=== PATIENT | male | born 1935 | race Caucasian/White ===

== ENCOUNTER 2018-12-15 14:35 | Inpatient (IN) | payer MEDICARE, OTHER ==
[2018-12-15] MEDS ORDERED: Sodium Chloride 0.9% 1,000 ML IV ONE (14:57)
[2018-12-15] MEDS ORDERED: Sodium Chloride 0.9% 10 ML Syringe FLUSH PRN (14:57)
--- NOTE | 2018-12-15 15:01 | EDM.PDOC ---
ED HPI GENERAL MEDICAL PROBLEM - General Chief Complaint: Respiratory Problem Stated Complaint: [facility] Time Seen by Provider: 12/15/18 14:44 Source of Information: Reports: EMS, Longterm Records, RN Notes Reviewed - History of Present Illness INITIAL COMMENTS - FREE TEXT/NARRATIVE: 83-year-old male has been brought here by [facility] for evaluation of renal status, fever, hypoxia. He is reported to have been in his usual state of health this past morning and then sometime around noon today developed altered mental status. He was noted to be in respiratory distress and also found to have low-grade fever. Upon ambulance arrival he was completely unresponsive with tachypnea, tachycardia and had previously been hypoxic. Due to continued respiratory distress in route and relative hypoxia they did start CPAP shortly before arrival to our ED. On arrival to ED patient is completely unresponsive, not able to verbalize or answer any questions. He is known to have history of dementia. At time of initial exam no family members present. - Related Data Allergies Allergy/AdvReac Type Severity Reaction Status Date / Time No Known Allergies Allergy Verified 12/15/18 14:57 Home Meds: Home Meds Aspirin 81 mg PO DAILY 01/11/18 [History] Cholecalciferol (Vitamin D3) [Vitamin D3] 5,000 unit PO DAILY 01/11/18 [History] Citalopram Hydrobromide [Celexa] 20 mg PO DAILY 01/11/18 [History] Donepezil HCl 10 mg PO DAILY 01/11/18 [History] LORazepam 0.5 mg PO BID PRN 01/11/18 [History] Lisinopril 10 mg PO DAILY 01/11/18 [History] Memantine HCl 10 mg PO DAILY 01/11/18 [History] Metoprolol Succinate 50 mg PO DAILY 01/11/18 [History] Niacin 500 mg PO DAILY 01/11/18 [History] Vit A/Vit C/Vit E/Zinc/Copper [Icaps Areds Formula] 1 cap PO BID 01/11/18 [ History] risperiDONE 0.25 mg PO DAILY 01/11/18 [History] Acetaminophen 325 - 650 mg PO Q6HR PRN 12/15/18 [History] Acetaminophen [Tylenol Extra Strength] 500 mg PO TID 12/15/18 [History] Carboxymethyl/Glycerin/Poly80 [Refresh Optive Advanced Drops] 10 ml OP BID 12/15 [History] Finasteride [Proscar] 5 mg PO DAILY 12/15/18 [History] Magnesium Hydroxide [Milk of Magnesia] 30 ml PO DAILY PRN 12/15/18 [History] Multivitamin [Poly-Vitamin] 1 each PO DAILY 12/15/18 [History] Sennosides [Senna] 8.6 mg PO DAILY 12/15/18 [History] Tamsulosin [Flomax] 0.4 mg PO DAILY 12/15/18 [History] busPIRone [Buspar] 10 mg PO BID 12/15/18 [History] fentaNYL [Fentanyl] 12 mcg TRDERM Q3D 12/15/18 [History] risperiDONE [Risperidone] 0.5 mg PO DAILY 12/15/18 [History] Past Medical History HEENT History: Reports: Macular Degeneration, Other (See Below) Other HEENT History: keratoconjunctivits, bilateral optic atrophy, diplobia Cardiovascular History: Reports: Afib, High Cholesterol, Hypertension Respiratory History: Reports: None Gastrointestinal History: Reports: None Genitourinary History: Reports: BPH [employer] History: Reports: None Musculoskeletal History: Reports: Other (See Below) Other Musculoskeletal History: left olecranon Neurological History: Reports: Other (See Below) Other Neuro History: cerebrovascular disease, TBI Psychiatric History: Reports: Anxiety, Dementia, Depression, Schizophrenia, Other (See Below) Other Psychiatric History: restlessness, agitiation Endocrine/Metabolic History: Reports: None Hematologic History: Reports: None Immunologic History: Reports: None Oncologic (Cancer) History: Reports: None Dermatologic History: Reports: None - Past Surgical History Head Surgeries/Procedures: Reports: None HEENT Surgical History: Reports: None Cardiovascular Surgical History: Reports: None Respiratory Surgical History: Reports: None GI Surgical History: Reports: None Female Surgical History: Reports: None Male Surgical History: Reports: None Endocrine Surgical History: Reports: None Neurological Surgical History: Reports: None Musculoskeletal Surgical History: Reports: Shoulder Surgery Oncologic Surgical History: Reports: None Dermatological Surgical History: Reports: None Social & Family History - Caffeine Use Caffeine Use: Reports: Coffee ED ROS GENERAL - Review of Systems Review Of Systems: Unable To Obtain ED EXAM, GENERAL - Physical Exam Exam: See Below General Appearance: Other (Completely unresponsive verbally and to gentle sternal rub) Eye Exam: Bilateral Eye: PERRL (Pupils are equal, relatively constricted) Head: Atraumatic. No: Facial Swelling Neck: Supple Respiratory/Chest: Respiratory Distress (Moderate tachypnea), Rhonchi (Mild bilateral) Cardiovascular: Tachycardia GI/Abdominal: Soft, Non-Tender Extremities: Normal Inspection. No: Pedal Edema, Leg Pain, Redness Neurological: Other Skin Exam: Warm, Dry, Normal Color EKG INTERPRETATION EKG Date: 12/15/18 Rhythm: A-Fib Rate (Beats/Min): 120 P-Wave: Absent ST-T: Normal Course - Vital Signs Last Recorded V/S: Last Vital Signs Temp 97.5 F 12/16/18 07:38 Pulse 86 12/16/18 07:38 Resp 16 12/16/18 07:38 BP 127/80 12/16/18 07:38 Pulse Ox 94 L 12/16/18 08:36 - Orders/Labs/Meds Orders: Active Orders 24 hr Category Date Time Status CULTURE BLOOD [BC] Stat Lab 12/15/18 15:10 Received CULTURE BLOOD [BC] Stat Lab 12/15/18 15:25 Received CULTURE URINE [RM] Stat Lab 12/15/18 15:55 Results Levofloxacin/Dextrose 5%-Water [Levaquin in D5W 750 MG/ Med 12/15/18 16:00 Active 150 ML] 750 mg Premix Bag 1 bag IV Q24H Piperacillin/Tazobactam [Piperacil-Tazobact] 4.5 gm Med 12/16/18 00:00 Active Sodium Chloride 0.9% [Normal Saline] 100 ml IV Q8H Sodium Chloride 0.9% [Saline Flush] Med 12/15/18 14:57 Active 10 ml FLUSH ASDIRECTED PRN Blood Culture x2 Reflex Set [OM.PC] Stat Oth 12/15/18 14:57 Ordered Saline Lock Insert [OM.PC] Stat Oth 12/15/18 14:57 Ordered Severe Sepsis Onset Time [OM.PC] Stat Oth 12/15/18 14:57 Ordered Medication Orders Enoxaparin Sodium (Lovenox) 40 mg SUBCUT DAILY [facility] Last Admin: 12/16/18 08:57 Dose: 40 mg Levofloxacin/Dextrose 750 mg/ (Premix) 150 mls @ 100 mls/hr IV Q24H [facility] Last Admin: 12/15/18 16:24 Dose: 100 mls/hr Piperacillin Sod/Tazobactam (Sod 4.5 gm/ Sodium Chloride) 100 mls @ 25 mls/hr IV Q8H [facility] Last Admin: 12/16/18 08:55 Dose: 25 mls/hr Infusion: 12/16/18 03:33 Dose: 25 mls/hr Admin: 12/15/18 23:33 Dose: 25 mls/hr Dextrose/Water (Dextrose 5% In Water) 1,000 mls @ 100 mls/hr IV ASDIRECTED ISATU Last Admin: 12/16/18 06:56 Dose: 100 mls/hr Infusion: 12/16/18 06:56 Dose: 100 mls/hr Admin: 12/15/18 21:12 Dose: 100 mls/hr Sodium Chloride (Saline Flush) 10 ml FLUSH ASDIRECTED PRN PRN Reason: Keep Vein Open Last Admin: 12/15/18 15:13 Dose: 10 ml Labs: Laboratory Tests 12/15/18 12/15/18 12/15/18 Range/Units 14:45 14:45 14:45 WBC 16.61 H (4.23-9.07) K/mm3 RBC 4.70 (4.63-6.08) M/mm3 Hgb 15.3 (13.7-17.5) gm/dl Hct 48.4 (40.1-51.0) % MCV 103.0 H (79.0-92.2) fl MCH 32.6 H (25.7-32.2) pg MCHC 31.6 L (32.2-35.5) g/dl RDW Std Deviation 55.7 H (35.1-43.9) fL Plt Count 220 (163-337) K/mm3 MPV 11.5 (9.4-12.3) fl Neutrophils % (Manual) 82 H (40-60) % Band Neutrophils % 4 (0-10) % Lymphocytes % (Manual) 6 L (20-40) % Atypical Lymphs % 1 % Monocytes % (Manual) 6 (2-10) % Eosinophils % (Manual) 1 (0.8-7.0) % Basophils % (Manual) 0 L (0.2-1.2) Platelet Estimate Adequate Macrocytosis 1+ slight RBC Morph Comment Not Reportable PT 11.6 (9.7-12.0) SECONDS INR 1.07 Puncture Site ABG pH (7.35-7.45) ABG pCO2 (35.0-45.0) mmHg ABG pO2 (80.0-100.0) mmHg ABG HCO3 (22.0-26.0) meq/L ABG O2 Saturation (96.0-97.0) % ABG Base Excess (-2-2.0) A-a Gradient mmHg O2 Delivery Device Oxygen Flow Rate FiO2 (21.00-100.00) % Sodium 167 H* (136-145) mEq/L Potassium 3.9 (3.5-5.1) mEq/L Chloride 127 H (98-107) mEq/L Carbon Dioxide 30 (21-32) mEq/L Anion Gap 13.9 (5-15) BUN 48 H (7-18) mg/dL Creatinine 1.3 (0.7-1.3) mg/dL Est Cr Clr Drug Dosing TNP Estimated GFR (MDRD) 53 (>60) mL/min BUN/Creatinine Ratio 36.9 H (14-18) Glucose 178 H (83-115) mg/dL Serum Osmolality (280-300) mosm/kg Lactic Acid (0.4-2.0) mmol/L Calcium 10.1 (8.5-10.1) mg/dL Total Bilirubin 0.9 (0.2-1.0) mg/dL AST 28 (15-37) U/L ALT 87 H (16-63) U/L Alkaline Phosphatase 83 (46-116) U/L C-Reactive Protein 7.3 H* (<1.0) mg/dL Total Protein 7.2 (6.4-8.2) g/dl Albumin 3.1 L (3.4-5.0) g/dl Globulin 4.1 gm/dL Albumin/Globulin Ratio 0.8 L (1-2) Urine Color (Yellow) Urine Appearance (Clear) Urine pH (5.0-8.0) Ur Specific Cameron (1.005-1.030) Urine Protein (Negative) Urine Glucose (UA) (Negative) Urine Ketones (Negative) Urine Occult Blood (Negative) Urine Nitrite (Negative) Urine Bilirubin (Negative) Urine Urobilinogen (0.2-1.0) Ur Leukocyte Esterase (Negative) Urine RBC (0-5) /hpf Urine WBC (0-5) /hpf Ur Squamous Epith Cells (0-5) /hpf Urine Bacteria (FEW) /hpf Hyaline Casts (0-5) /lpf Urine Mucus (FEW) /hpf Urine Osmolality (400-1100) mosm/kg Ur Random Sodium (40-220) mEq/L Mycoplasma pneumon IgM (NEGATIVE) 12/15/18 12/15/18 12/15/18 Range/Units 14:45 14:45 14:45 WBC (4.23-9.07) K/mm3 RBC (4.63-6.08) M/mm3 Hgb (13.7-17.5) gm/dl Hct (40.1-51.0) % MCV (79.0-92.2) fl MCH (25.7-32.2) pg MCHC (32.2-35.5) g/dl RDW Std Deviation (35.1-43.9) fL Plt Count (163-337) K/mm3 MPV (9.4-12.3) fl Neutrophils % (Manual) (40-60) % Band Neutrophils % (0-10) % Lymphocytes % (Manual) (20-40) % Atypical Lymphs % % Monocytes % (Manual) (2-10) % Eosinophils % (Manual) (0.8-7.0) % Basophils % (Manual) (0.2-1.2) Platelet Estimate Macrocytosis RBC Morph Comment PT (9.7-12.0) SECONDS INR Puncture Site ABG pH (7.35-7.45) ABG pCO2 (35.0-45.0) mmHg ABG pO2 (80.0-100.0) mmHg ABG HCO3 (22.0-26.0) meq/L ABG O2 Saturation (96.0-97.0) % ABG Base Excess (-2-2.0) A-a Gradient mmHg O2 Delivery Device Oxygen Flow Rate FiO2 (21.00-100.00) % Sodium (136-145) mEq/L Potassium (3.5-5.1) mEq/L Chloride (98-107) mEq/L Carbon Dioxide (21-32) mEq/L Anion Gap (5-15) BUN (7-18) mg/dL Creatinine (0.7-1.3) mg/dL Est Cr Clr Drug Dosing Estimated GFR (MDRD) (>60) mL/min BUN/Creatinine Ratio (14-18) Glucose (83-115) mg/dL Serum Osmolality 366 H (280-300) mosm/kg Lactic Acid 2.7 H (0.4-2.0) mmol/L Calcium (8.5-10.1) mg/dL Total Bilirubin (0.2-1.0) mg/dL AST (15-37) U/L ALT (16-63) U/L Alkaline Phosphatase (46-116) U/L C-Reactive Protein (<1.0) mg/dL Total Protein (6.4-8.2) g/dl Albumin (3.4-5.0) g/dl Globulin gm/dL Albumin/Globulin Ratio (1-2) Urine Color (Yellow) Urine Appearance (Clear) Urine pH (5.0-8.0) Ur Specific Cameron (1.005-1.030) Urine Protein (Negative) Urine Glucose (UA) (Negative) Urine Ketones (Negative) Urine Occult Blood (Negative) Urine Nitrite (Negative) Urine Bilirubin (Negative) Urine Urobilinogen (0.2-1.0) Ur Leukocyte Esterase (Negative) Urine RBC (0-5) /hpf Urine WBC (0-5) /hpf Ur Squamous Epith Cells (0-5) /hpf Urine Bacteria (FEW) /hpf Hyaline Casts (0-5) /lpf Urine Mucus (FEW) /hpf Urine Osmolality (400-1100) mosm/kg Ur Random Sodium (40-220) mEq/L Mycoplasma pneumon IgM Negative (NEGATIVE) 12/15/18 12/15/18 12/15/18 Range/Units 15:37 15:55 15:55 WBC (4.23-9.07) K/mm3 RBC (4.63-6.08) M/mm3 Hgb (13.7-17.5) gm/dl Hct (40.1-51.0) % MCV (79.0-92.2) fl MCH (25.7-32.2) pg MCHC (32.2-35.5) g/dl RDW Std Deviation (35.1-43.9) fL Plt Count (163-337) K/mm3 MPV (9.4-12.3) fl Neutrophils % (Manual) (40-60) % Band Neutrophils % (0-10) % Lymphocytes % (Manual) (20-40) % Atypical Lymphs % % Monocytes % (Manual) (2-10) % Eosinophils % (Manual) (0.8-7.0) % Basophils % (Manual) (0.2-1.2) Platelet Estimate Macrocytosis RBC Morph Comment PT (9.7-12.0) SECONDS INR Puncture Site Lt radial ABG pH 7.40 (7.35-7.45) ABG pCO2 41.7 (35.0-45.0) mmHg ABG pO2 76.0 L (80.0-100.0) mmHg ABG HCO3 25.4 (22.0-26.0) meq/L ABG O2 Saturation 95.8 L (96.0-97.0) % ABG Base Excess 1.0 (-2-2.0) A-a Gradient 244 mmHg O2 Delivery Device Cpap Oxygen Flow Rate 8.0 FiO2 52.00 (21.00-100.00) % Sodium (136-145) mEq/L Potassium (3.5-5.1) mEq/L Chloride (98-107) mEq/L Carbon Dioxide (21-32) mEq/L Anion Gap (5-15) BUN (7-18) mg/dL Creatinine (0.7-1.3) mg/dL Est Cr Clr Drug Dosing Estimated GFR (MDRD) (>60) mL/min BUN/Creatinine Ratio (14-18) Glucose (83-115) mg/dL Serum Osmolality (280-300) mosm/kg Lactic Acid (0.4-2.0) mmol/L Calcium (8.5-10.1) mg/dL Total Bilirubin (0.2-1.0) mg/dL AST (15-37) U/L ALT (16-63) U/L Alkaline Phosphatase (46-116) U/L C-Reactive Protein (<1.0) mg/dL Total Protein (6.4-8.2) g/dl Albumin (3.4-5.0) g/dl Globulin gm/dL Albumin/Globulin Ratio (1-2) Urine Color Yellow (Yellow) Urine Appearance Clear (Clear) Urine pH 5.5 (5.0-8.0) Ur Specific Cameron 1.025 (1.005-1.030) Urine Protein 1+ H (Negative) Urine Glucose (UA) Trace H (Negative) Urine Ketones Negative (Negative) Urine Occult Blood 3+ H (Negative) Urine Nitrite Negative (Negative) Urine Bilirubin Negative (Negative) Urine Urobilinogen 1.0 (0.2-1.0) Ur Leukocyte Esterase Negative (Negative) Urine RBC 20-30 H (0-5) /hpf Urine WBC 5-10 H (0-5) /hpf Ur Squamous Epith Cells Not seen (0-5) /hpf Urine Bacteria Few (FEW) /hpf Hyaline Casts 10-20 H (0-5) /lpf Urine Mucus Few (FEW) /hpf Urine Osmolality 930 (400-1100) mosm/kg Ur Random Sodium 13 L (40-220) mEq/L Mycoplasma pneumon IgM (NEGATIVE) Meds: Medications Generic Name Dose Route Start Last Admin Trade Name Freq PRN Reason Stop Dose Admin Enoxaparin Sodium 40 mg 12/16/18 09:00 12/16/18 08:57 Lovenox SUBCUT 40 mg DAILY [facility] Administration Levofloxacin/Dextrose 750 mg/ 150 mls @ 100 mls/hr 12/15/18 16:00 12/15/18 16 :24 Premix IV 100 mls/hr Q24H [facility] Administration Piperacillin Sod/Tazobactam 100 mls @ 25 mls/hr 12/16/18 00:00 12/16/18 08:55 Sod 4.5 gm/ Sodium Chloride IV 25 mls/hr Q8H [facility] Administration Dextrose/Water 1,000 mls @ 100 mls/hr 12/15/18 18:45 12/16/18 06:56 Dextrose 5% In Water IV 100 mls/hr ASDIRECTED [facility]U Administration Sodium Chloride 10 ml 12/15/18 14:57 12/15/18 15:13 Saline Flush FLUSH 10 ml ASDIRECTED PRN Administration Keep Vein Open Discontinued Medications Generic Name Dose Route Start Last Admin Trade Name Freq PRN Reason Stop Dose Admin Sodium Chloride 1,000 mls @ 999 mls/hr 12/15/18 14:57 12/15/18 15:13 Normal Saline IV 12/15/18 15:57 999 mls/hr BOLUS ONE Administration Piperacillin Sod/Tazobactam 100 mls @ 25 mls/hr 12/15/18 16:00 11/03/19 22:32 Sod 4.5 gm/ Sodium Chloride IV Not Given Q8H [facility] Lactated Ringer's 1,000 mls @ 999 mls/hr 12/15/18 16:06 12/15/18 16:14 Ringers, Lactated IV 12/15/18 17:06 999 mls/hr .BOLUS ONE Administration Piperacillin Sod/Tazobactam 100 mls @ 200 mls/hr 12/15/18 16:15 12/15/18 16: 20 Sod 4.5 gm/ Sodium Chloride IV 12/15/18 16:44 200 mls/hr ONETIME ONE Administration Naloxone HCl 1 mg 12/15/18 18:23 12/15/18 18:52 Narcan IVPUSH 12/15/18 18:24 1 mg ONETIME ONE Administration - Re-Assessments/Exams Free Text/Narrative Re-Assessment/Exam: 12/15/18 15:06. Appropriate labs and fluids have been ordered using sepsis bundle. Blood cultures 2 obtained. 1 L NS IV fluid will be given for starters. O2 sats were 95% with continued CPAP started by EMS en route. That will be continued for now, have ordered ABG's. 12/15/18 15:30. ABG's are OK, p02 76, ph 7.4. Have switched the C PAP over to BiPap. Chest x-ray is not very remarkable at all, very mild infiltrate right base. There is no evidence for failure. Working diagnosis is aspiration pneumonia, possible sepsis, hypernatremia sodium of 167 and corresponding dehydration. Currently getting 2nd liter of fluid, LR. Have ordered Zosyn 4.5 g IV and then also Levaquin 750 mg IV with this being a correction acquired infection/pneumonia 12/15/18. 17:30. BP has improved to 124/76, pulse down to 104 from 135 on arrival. Good radial pulses, cap refill. Still unresponsive. Have contacted to [place] for hospital admission. Departure - Departure Time of Disposition: 17:37 Disposition: Admitted As Inpatient 67 Condition: Serious Clinical Impression: Hypernatremia, Hypoxia Altered mental status Qualifiers: Altered mental status type: unspecified Qualified Code(s): R41.82 - Altered mental status, unspecified Fever Qualifiers: Fever type: unspecified Qualified Code(s): R50.9 - Fever, unspecified Leukocytosis Qualifiers: Leukocytosis type: other Qualified Code(s): D72.828 - Other elevated white blood cell count - Discharge Information ED Communication - Discussed Case With (1) Discussed Case With (1): Admitting Provider (Dr Guerrero, decision to admit at about 17:30.) - My Orders Last 24 Hours: My Active Orders 12/15/18 14:57 Sodium Chloride 0.9% [Saline Flush] 10 ml FLUSH ASDIRECTED PRN Blood Culture x2 Reflex Set [OM.PC] Stat Saline Lock Insert [OM.PC] Stat Severe Sepsis Onset Time [OM.PC] Stat 12/15/18 15:10 CULTURE BLOOD [BC] Stat 12/15/18 15:25 CULTURE BLOOD [BC] Stat 12/15/18 15:55 CULTURE URINE [RM] Stat 12/15/18 16:00 Levofloxacin/Dextrose 5%-Water [Levaquin in D5W 750 MG/150 ML] 750 mg Premix Bag 1 bag IV Q24H 12/16/18 00:00 Piperacillin/Tazobactam [Piperacil-Tazobact] 4.5 gm Sodium Chloride 0.9% [ Normal Saline] 100 ml IV Q8H - Assessment/Plan Last 24 Hours: My Active Orders 12/15/18 14:57 Sodium Chloride 0.9% [Saline Flush] 10 ml FLUSH ASDIRECTED PRN Blood Culture x2 Reflex Set [OM.PC] Stat Saline Lock Insert [OM.PC] Stat Severe Sepsis Onset Time [OM.PC] Stat 12/15/18 15:10 CULTURE BLOOD [BC] Stat 12/15/18 15:25 CULTURE BLOOD [BC] Stat 12/15/18 15:55 CULTURE URINE [RM] Stat 12/15/18 16:00 Levofloxacin/Dextrose 5%-Water [Levaquin in D5W 750 MG/150 ML] 750 mg Premix Bag 1 bag IV Q24H 12/16/18 00:00 Piperacillin/Tazobactam [Piperacil-Tazobact] 4.5 gm Sodium Chloride 0.9% [ Normal Saline] 100 ml IV Q8H
[2018-12-15] MEDS ORDERED: Piperacillin/Tazobactam 4.5 GM in Sodium Chloride 0.9% 100 ML IV SCH (16:00)
[2018-12-15] MEDS ORDERED: Lactated Ringers 1,000 ML IV ONE (16:06)
[2018-12-15] MEDS ORDERED: Piperacillin/Tazobactam 4.5 GM in Sodium Chloride 0.9% 100 ML IV ONE (16:15)
[2018-12-15] MEDS: Levofloxacin/Dextrose 5%-Water 750 MG in Premix Bag 1 BAG IV SCH (16:24)
[2018-12-15] MEDS ORDERED: Naloxone 2 MG/2 ML Syringe IVPUSH ONE (18:23)
--- NOTE | 2018-12-15 18:34 | PCM.HP.2 ---
H&P History of Present Illness - General Date of Service: 12/15/18 - History of Present Illness Initial Comments - Free Text/Narative: INFORMATION IS VERY LIMITED DUE TO PATIENT BEING ALTERED AND LIVES IN SENIOR CARE. OBTAINED FROM ED PHYSICIAN, NURSE AND Patient is a retirement resident who was found to be diaphoretic with an altered mental status around noon at retirement ([facility]) ivtal signs were obtained at that time and patient was found to be febrile, tachycardic, tachypneic and BP within normal limits. He was also found to be hypoxemic, placed on NRB 10L which brought his o2 sat up to 94% As per patient's he has been having decreased oral intake in the past 3-4 weeks, she sees patient every day for lunch. She states approximately 4 weeks ago patient just stopped eating and after that patient required to be fed, mainly ensure and magic cup, sometimes pudding and jello. She also states that patient coughs when he eats. She was called by retirement who stated that when patient was taken back to room after lunch he was found to be sweating profusely with a fever for which they called the ambulance and brought him here. - Related Data Allergies/Adverse Reactions: Allergies Allergy/AdvReac Type Severity Reaction Status Date / Time No Known Allergies Allergy Verified 12/15/18 14:57 Home Medications: Home Meds Aspirin 81 mg PO DAILY 01/11/18 [History] Cholecalciferol (Vitamin D3) [Vitamin D3] 5,000 unit PO DAILY 01/11/18 [History] Citalopram Hydrobromide [Celexa] 20 mg PO DAILY 01/11/18 [History] Donepezil HCl 10 mg PO DAILY 01/11/18 [History] LORazepam 0.5 mg PO BID PRN 01/11/18 [History] Lisinopril 10 mg PO DAILY 01/11/18 [History] Memantine HCl 10 mg PO DAILY 01/11/18 [History] Metoprolol Succinate 50 mg PO DAILY 01/11/18 [History] Niacin 500 mg PO DAILY 01/11/18 [History] Vit A/Vit C/Vit E/Zinc/Copper [Icaps Areds Formula] 1 cap PO BID 01/11/18 [ History] risperiDONE 0.25 mg PO DAILY 01/11/18 [History] Acetaminophen 325 - 650 mg PO Q6HR PRN 12/15/18 [History] Acetaminophen [Tylenol Extra Strength] 500 mg PO TID 12/15/18 [History] Carboxymethyl/Glycerin/Poly80 [Refresh Optive Advanced Drops] 10 ml OP BID 12/15 [History] Finasteride [Proscar] 5 mg PO DAILY 12/15/18 [History] Magnesium Hydroxide [Milk of Magnesia] 30 ml PO DAILY PRN 12/15/18 [History] Multivitamin [Poly-Vitamin] 1 each PO DAILY 12/15/18 [History] Sennosides [Senna] 8.6 mg PO DAILY 12/15/18 [History] Tamsulosin [Flomax] 0.4 mg PO DAILY 12/15/18 [History] busPIRone [Buspar] 10 mg PO BID 12/15/18 [History] fentaNYL [Fentanyl] 12 mcg TRDERM Q3D 12/15/18 [History] risperiDONE [Risperidone] 0.5 mg PO DAILY 12/15/18 [History] Past Medical History HEENT History: Reports: Macular Degeneration, Other (See Below) Other HEENT History: keratoconjunctivits, bilateral optic atrophy, diplobia Cardiovascular History: Reports: Afib, High Cholesterol, Hypertension Respiratory History: Reports: None Gastrointestinal History: Reports: None Genitourinary History: Reports: BPH 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 Musculoskeletal History: Reports: Other (See Below) Other Musculoskeletal History: left olecranon Neurological History: Reports: Other (See Below) Other Neuro History: cerebrovascular disease, TBI Psychiatric History: Reports: Anxiety, Dementia, Depression, Schizophrenia, Other (See Below) Other Psychiatric History: restlessness, agitiation Endocrine/Metabolic History: Reports: None Hematologic History: Reports: None Immunologic History: Reports: None Oncologic (Cancer) History: Reports: None Dermatologic History: Reports: None - Infectious Disease History Infectious Disease History: Reports: None - Past Surgical History Head Surgeries/Procedures: Reports: None HEENT Surgical History: Reports: None Cardiovascular Surgical History: Reports: None Respiratory Surgical History: Reports: None GI Surgical History: Reports: None Female Surgical History: Reports: None Male Surgical History: Reports: None Endocrine Surgical History: Reports: None Neurological Surgical History: Reports: None Musculoskeletal Surgical History: Reports: Shoulder Surgery Oncologic Surgical History: Reports: None Dermatological Surgical History: Reports: None Social & Family History - Tobacco Use Smoking Status *Q: Unknown Ever Smoked - Caffeine Use Caffeine Use: Reports: Coffee Other Caffeine Use: Unknown due to pt being unresponsive. H&P Review of Systems - Review of Systems: Review Of Systems: Unable To Obtain Exam - Exam Exam: See Below - Vital Signs Vital Signs: Last Vital Signs Temp 38.1 C 12/15/18 14:43 Pulse 135 H 12/15/18 14:43 Resp 24 H 12/15/18 14:43 BP 117/80 12/15/18 14:43 Pulse Ox 95 12/15/18 14:43 Weight: 62.686 kg - Exam Quality Assessment: Supplemental Oxygen, Other (Normocephalic and atraumatic with bitemporal wasting) General: Lethargic HEENT: Conjunctiva Clear (oral mucosa is dry, unable to evaluate for lesions due to patient being on biPAP) Neck: Trachea Midline Lungs: Clear to Auscultation, Normal Respiratory Effort, Decreased Breath Sounds , Crackles (very occasional). No: Rales, Rhonchi, Rub, Stridor, Wheezing Cardiovascular: Tachycardia GI/Abdominal Exam: Normal Bowel Sounds, Soft Back Exam: Normal Inspection Extremities: Normal Inspection, No Pedal Edema, Slow Capillary Refill - Patient Data Lab Results Last 24 hrs: Laboratory Results - last 24 hr 12/15/18 12/15/18 12/15/18 Range/Units 14:45 14:45 14:45 WBC 16.61 H (4.23-9.07) K/mm3 RBC 4.70 (4.63-6.08) M/mm3 Hgb 15.3 (13.7-17.5) gm/dl Hct 48.4 (40.1-51.0) % MCV 103.0 H (79.0-92.2) fl MCH 32.6 H (25.7-32.2) pg MCHC 31.6 L (32.2-35.5) g/dl RDW Std Deviation 55.7 H (35.1-43.9) fL Plt Count 220 (163-337) K/mm3 MPV 11.5 (9.4-12.3) fl Neutrophils % (Manual) 82 H (40-60) % Band Neutrophils % 4 (0-10) % Lymphocytes % (Manual) 6 L (20-40) % Atypical Lymphs % 1 % Monocytes % (Manual) 6 (2-10) % Eosinophils % (Manual) 1 (0.8-7.0) % Basophils % (Manual) 0 L (0.2-1.2) Platelet Estimate Adequate Macrocytosis 1+ slight RBC Morph Comment Not Reportable PT 11.6 (9.7-12.0) SECONDS INR 1.07 Puncture Site ABG pH (7.35-7.45) ABG pCO2 (35.0-45.0) mmHg ABG pO2 (80.0-100.0) mmHg ABG HCO3 (22.0-26.0) meq/L ABG O2 Saturation (96.0-97.0) % ABG Base Excess (-2-2.0) A-a Gradient mmHg O2 Delivery Device Oxygen Flow Rate FiO2 (21.00-100.00) % Sodium 167 H* (136-145) mEq/L Potassium 3.9 (3.5-5.1) mEq/L Chloride 127 H (98-107) mEq/L Carbon Dioxide 30 (21-32) mEq/L Anion Gap 13.9 (5-15) BUN 48 H (7-18) mg/dL Creatinine 1.3 (0.7-1.3) mg/dL Est Cr Clr Drug Dosing TNP Estimated GFR (MDRD) 53 (>60) mL/min BUN/Creatinine Ratio 36.9 H (14-18) Glucose 178 H (83-115) mg/dL Lactic Acid (0.4-2.0) mmol/L Calcium 10.1 (8.5-10.1) mg/dL Total Bilirubin 0.9 (0.2-1.0) mg/dL AST 28 (15-37) U/L ALT 87 H (16-63) U/L Alkaline Phosphatase 83 (46-116) U/L C-Reactive Protein 7.3 H* (<1.0) mg/dL Total Protein 7.2 (6.4-8.2) g/dl Albumin 3.1 L (3.4-5.0) g/dl Globulin 4.1 gm/dL Albumin/Globulin Ratio 0.8 L (1-2) Urine Color (Yellow) Urine Appearance (Clear) Urine pH (5.0-8.0) Ur Specific [place] (1.005-1.030) Urine Protein (Negative) Urine Glucose (UA) (Negative) Urine Ketones (Negative) Urine Occult Blood (Negative) Urine Nitrite (Negative) Urine Bilirubin (Negative) Urine Urobilinogen (0.2-1.0) Ur Leukocyte Esterase (Negative) Urine RBC (0-5) /hpf Urine WBC (0-5) /hpf Ur Squamous Epith Cells (0-5) /hpf Urine Bacteria (FEW) /hpf Hyaline Casts (0-5) /lpf Urine Mucus (FEW) /hpf Mycoplasma pneumon IgM (NEGATIVE) 12/15/18 12/15/18 12/15/18 Range/Units 14:45 14:45 15:37 WBC (4.23-9.07) K/mm3 RBC (4.63-6.08) M/mm3 Hgb (13.7-17.5) gm/dl Hct (40.1-51.0) % MCV (79.0-92.2) fl MCH (25.7-32.2) pg MCHC (32.2-35.5) g/dl RDW Std Deviation (35.1-43.9) fL Plt Count (163-337) K/mm3 MPV (9.4-12.3) fl Neutrophils % (Manual) (40-60) % Band Neutrophils % (0-10) % Lymphocytes % (Manual) (20-40) % Atypical Lymphs % % Monocytes % (Manual) (2-10) % Eosinophils % (Manual) (0.8-7.0) % Basophils % (Manual) (0.2-1.2) Platelet Estimate Macrocytosis RBC Morph Comment PT (9.7-12.0) SECONDS INR Puncture Site Lt radial ABG pH 7.40 (7.35-7.45) ABG pCO2 41.7 (35.0-45.0) mmHg ABG pO2 76.0 L (80.0-100.0) mmHg ABG HCO3 25.4 (22.0-26.0) meq/L ABG O2 Saturation 95.8 L (96.0-97.0) % ABG Base Excess 1.0 (-2-2.0) A-a Gradient 244 mmHg O2 Delivery Device Cpap Oxygen Flow Rate 8.0 FiO2 52.00 (21.00-100.00) % Sodium (136-145) mEq/L Potassium (3.5-5.1) mEq/L Chloride (98-107) mEq/L Carbon Dioxide (21-32) mEq/L Anion Gap (5-15) BUN (7-18) mg/dL Creatinine (0.7-1.3) mg/dL Est Cr Clr Drug Dosing Estimated GFR (MDRD) (>60) mL/min BUN/Creatinine Ratio (14-18) Glucose (83-115) mg/dL Lactic Acid 2.7 H (0.4-2.0) mmol/L Calcium (8.5-10.1) mg/dL Total Bilirubin (0.2-1.0) mg/dL AST (15-37) U/L ALT (16-63) U/L Alkaline Phosphatase (46-116) U/L C-Reactive Protein (<1.0) mg/dL Total Protein (6.4-8.2) g/dl Albumin (3.4-5.0) g/dl Globulin gm/dL Albumin/Globulin Ratio (1-2) Urine Color (Yellow) Urine Appearance (Clear) Urine pH (5.0-8.0) Ur Specific [place] (1.005-1.030) Urine Protein (Negative) Urine Glucose (UA) (Negative) Urine Ketones (Negative) Urine Occult Blood (Negative) Urine Nitrite (Negative) Urine Bilirubin (Negative) Urine Urobilinogen (0.2-1.0) Ur Leukocyte Esterase (Negative) Urine RBC (0-5) /hpf Urine WBC (0-5) /hpf Ur Squamous Epith Cells (0-5) /hpf Urine Bacteria (FEW) /hpf Hyaline Casts (0-5) /lpf Urine Mucus (FEW) /hpf Mycoplasma pneumon IgM Negative (NEGATIVE) 12/15/18 Range/Units 15:55 WBC (4.23-9.07) K/mm3 RBC (4.63-6.08) M/mm3 Hgb (13.7-17.5) gm/dl Hct (40.1-51.0) % MCV (79.0-92.2) fl MCH (25.7-32.2) pg MCHC (32.2-35.5) g/dl RDW Std Deviation (35.1-43.9) fL Plt Count (163-337) K/mm3 MPV (9.4-12.3) fl Neutrophils % (Manual) (40-60) % Band Neutrophils % (0-10) % Lymphocytes % (Manual) (20-40) % Atypical Lymphs % % Monocytes % (Manual) (2-10) % Eosinophils % (Manual) (0.8-7.0) % Basophils % (Manual) (0.2-1.2) Platelet Estimate Macrocytosis RBC Morph Comment PT (9.7-12.0) SECONDS INR Puncture Site ABG pH (7.35-7.45) ABG pCO2 (35.0-45.0) mmHg ABG pO2 (80.0-100.0) mmHg ABG HCO3 (22.0-26.0) meq/L ABG O2 Saturation (96.0-97.0) % ABG Base Excess (-2-2.0) A-a Gradient mmHg O2 Delivery Device Oxygen Flow Rate FiO2 (21.00-100.00) % Sodium (136-145) mEq/L Potassium (3.5-5.1) mEq/L Chloride (98-107) mEq/L Carbon Dioxide (21-32) mEq/L Anion Gap (5-15) BUN (7-18) mg/dL Creatinine (0.7-1.3) mg/dL Est Cr Clr Drug Dosing Estimated GFR (MDRD) (>60) mL/min BUN/Creatinine Ratio (14-18) Glucose (83-115) mg/dL Lactic Acid (0.4-2.0) mmol/L Calcium (8.5-10.1) mg/dL Total Bilirubin (0.2-1.0) mg/dL AST (15-37) U/L ALT (16-63) U/L Alkaline Phosphatase (46-116) U/L C-Reactive Protein (<1.0) mg/dL Total Protein (6.4-8.2) g/dl Albumin (3.4-5.0) g/dl Globulin gm/dL Albumin/Globulin Ratio (1-2) Urine Color Yellow (Yellow) Urine Appearance Clear (Clear) Urine pH 5.5 (5.0-8.0) Ur Specific [place] 1.025 (1.005-1.030) Urine Protein 1+ H (Negative) Urine Glucose (UA) Trace H (Negative) Urine Ketones Negative (Negative) Urine Occult Blood 3+ H (Negative) Urine Nitrite Negative (Negative) Urine Bilirubin Negative (Negative) Urine Urobilinogen 1.0 (0.2-1.0) Ur Leukocyte Esterase Negative (Negative) Urine RBC 20-30 H (0-5) /hpf Urine WBC 5-10 H (0-5) /hpf Ur Squamous Epith Cells Not seen (0-5) /hpf Urine Bacteria Few (FEW) /hpf Hyaline Casts 10-20 H (0-5) /lpf Urine Mucus Few (FEW) /hpf Mycoplasma pneumon IgM (NEGATIVE) Result Diagrams: 12/15/18 14:45 12/16/18 00:24 Sid Results Last 24 hrs: Microbiology 12/15/18 17:52 Influenza Type A Antigen Screen - Final Nasopharyngeal Swab NEGATIVE INFLUENZA A VIRUS AG REFERENCE RANGE: NEGATIVE Influenza Type B Antigen Screen - Final NEGATIVE INFLUENZA B VIRUS AG REFERENCE RANGE: NEGATIVE - Problem List (1) Leukocytosis SNOMED Code(s): 216477980, 829796608 ICD Code: D72.829 - ELEVATED WHITE BLOOD CELL COUNT, UNSPECIFIED Status: Acute Current Visit: Yes (2) Oropharyngeal dysphagia SNOMED Code(s): 56654449 ICD Code: R13.12 - DYSPHAGIA, OROPHARYNGEAL PHASE Status: Acute Current Visit: Yes (3) Atrial fibrillation SNOMED Code(s): 95454318 ICD Code: I48.91 - UNSPECIFIED ATRIAL FIBRILLATION Status: Acute Current Visit: Yes (4) Schizophrenia SNOMED Code(s): 42691853 ICD Code: F20.9 - SCHIZOPHRENIA, UNSPECIFIED Status: Acute Current Visit : Yes (5) Dementia SNOMED Code(s): 92577669 ICD Code: F03.90 - UNSPECIFIED DEMENTIA WITHOUT BEHAVIORAL DISTURBANCE Status: Acute Current Visit: Yes (6) ANDREW (generalized anxiety disorder) SNOMED Code(s): 42243190 ICD Code: F41.1 - GENERALIZED ANXIETY DISORDER Status: Acute Current Visit: Yes (7) Depression SNOMED Code(s): 51485053 ICD Code: F32.9 - MAJOR DEPRESSIVE DISORDER, SINGLE EPISODE, UNSPECIFIED Status: Acute Current Visit: Yes (8) Hypertension SNOMED Code(s): 83060198 ICD Code: I10 - ESSENTIAL (PRIMARY) HYPERTENSION Status: Acute Current Visit: Yes (9) Dyslipidemia SNOMED Code(s): 501441491 ICD Code: E78.5 - HYPERLIPIDEMIA, UNSPECIFIED Status: Acute Current Visit : Yes (10) Chronic constipation SNOMED Code(s): 880644323 ICD Code: K59.09 - OTHER CONSTIPATION Status: Acute Current Visit: Yes (11) Benign prostate hyperplasia SNOMED Code(s): 654087809 ICD Code: N40.0 - BENIGN PROSTATIC HYPERPLASIA WITHOUT LOWER URINRY TRACT SYMP Status: Acute Current Visit: Yes (12) Altered mental status SNOMED Code(s): 415719742 ICD Code: R41.82 - ALTERED MENTAL STATUS, UNSPECIFIED Status: Acute Current Visit: Yes Qualifiers: Altered mental status type: unspecified Qualified Code(s): R41.82 - Altered mental status, unspecified (13) Hypernatremia SNOMED Code(s): 016585637 ICD Code: E87.0 - HYPEROSMOLALITY AND HYPERNATREMIA Status: Acute Current Visit: Yes (14) Hypoxia SNOMED Code(s): 226422636 ICD Code: R09.02 - HYPOXEMIA Status: Acute Current Visit: Yes (15) Acute kidney failure SNOMED Code(s): 41885183 ICD Code: N17.9 - ACUTE KIDNEY FAILURE, UNSPECIFIED Status: Acute Current Visit: Yes (16) Lactic acidosis SNOMED Code(s): 13166588 ICD Code: E87.2 - ACIDOSIS Status: Acute Current Visit: Yes (17) Hyperchloremia SNOMED Code(s): 72204735 ICD Code: E87.8 - OTH DISORDERS OF ELECTROLYTE AND FLUID BALANCE, NEC Status: Acute Current Visit: Yes (18) Volume depletion SNOMED Code(s): 91001410 ICD Code: E86.9 - VOLUME DEPLETION, UNSPECIFIED Status: Acute Current Visit: Yes (19) Acute hypoxemic respiratory failure SNOMED Code(s): 317065112 ICD Code: J96.01 - ACUTE RESPIRATORY FAILURE WITH HYPOXIA Status: Acute Current Visit: Yes (20) jail resident SNOMED Code(s): 279133777 ICD Code: Z59.3 - PROBLEMS RELATED TO LIVING IN RESIDENTIAL INSTITUTION Status: Acute Current Visit: Yes (21) Polypharmacy SNOMED Code(s): 187465918 ICD Code: Z79.899 - OTHER PIN STICKER (CURRENT) DRUG THERAPY Status: Acute Current Visit: Yes Problem List Initiated/Reviewed/Updated: Yes Assessment/Plan Comment:: Multifactorial altered mental status Acute hypoxemic respiratory failure Hypernatremia + hypoxemia + volume depletion + concern for aspiration + dementia history Multiple central acting medications Given Naloxone in retirement with minimal and transitory improvement Could be part of natural history of disease PLAN - Treat hypernatremia - Speech therapy - Let me sleep protocol - Reconcile medications as per BEERs criteria Acute kidney failure Hypernatremia Hyperchloremia Volume depletion Lactic acidosis Hypernatremia likely chronic as per history by of decreased oral intake although symptoms appear to be sudden onset Labs available from October have a normal Na level Multiple central acting meds that have volume depletion as a side effects PLAN - Start D5W at 100ml/hr - Repeat electrolytes every 6 hours - Goal daily replacement is no more than 10mEq/day Leukocytosis Likely 2/2 volume depletion No obvious infectious source PLAN - Will repeat in AM - Procalcitonin ordered Oropharyngeal dysphagia Concern for silent aspiration endorses coughing when he eats Has been eating only ensure and magic cups for approximately 3 weeks PLAN - Speech therapy evaluation Atrial fibrillation with RVR Rate in the 140's en route 110 now Home management with: metoprolol 50mg QD Hypertension BP on admission 117/80 Home management with lisinopril 10mg QD PLAN - Hold all BP meds until volume has been repleted Schizophrenia Dementia ANDREW (generalized anxiety disorder) Depression Home medications: Buspirone 10mg BID, [id number] QD, Donepezil 10mg QD, Namenda 10mg QD, Risperidone 0.5mg QD Chronic pain On fentanyl patch Taken off and given Naloxone today with minimal and transitory improvement PLAN - Hold medications for now Dyslipidemia No acute issues Out of window for statin and niacin benefit Will hold during admission and recommend PCP to evaluate discontinuing medication Chronic constipation Unknown last BM Will have nursing reach out to retirement ' Home meds: Docusate senna 50/8.6mg QD; PRN Milk of Magnesia Benign prostate hyperplasia No acute issues Home medications, tamsulosin and finasteride PROPHYLAXIS DVT- Lovenox GI- not indicated CODE STATUS: DNR/DNI DISPOSITION: Patient will be admitted for IV fluid repletion, sodium correction and monitorization of mental status. - Mortality Measure Prognosis:: Poor
[2018-12-15] MEDS: Dextrose 5% in Water 1,000 ML IV SCH (21:12)
[2018-12-15] MEDS: Piperacillin/Tazobactam 4.5 GM in Sodium Chloride 0.9% 100 ML IV SCH (23:33)
[2018-12-16] MEDS: Dextrose 5% in Water 1,000 ML IV SCH ×3 (06:56→20:33)
--- NOTE | 2018-12-16 08:01 | CR ---
Chest: Portable supine view of the chest was obtained. Comparison: No prior chest x-ray is available. Heart size is normal. Tortuous thoracic aorta is seen. Lungs show no acute parenchymal change. Mild scoliosis is noted within the spine with degenerative change. Degenerative change also seen within both shoulders. Impression: 1. Findings which are believed to be incidental. 2. Nothing acute is appreciated on supine chest x-ray. Diagnostic code #2
[2018-12-16] MEDS: Piperacillin/Tazobactam 4.5 GM in Sodium Chloride 0.9% 100 ML IV SCH ×2 (08:55→15:59)
[2018-12-16] MEDS: Enoxaparin 40 MG/0.4 ML Syringe SUBCUT SCH (08:57)
[2018-12-16] MEDS ORDERED: Potassium Chloride 10 MEQ in Premix Bag 1 BAG IV SCH (11:00)
--- NOTE | 2018-12-16 13:15 | PCM.PN ---
- General Info Date of Service: 12/16/18 - Review of Systems Systems Review Comment:: UNABLE TO OBTAIN - Patient Data Vitals - Most Recent: Last Vital Signs Temp 37.2 C 12/16/18 11:24 Pulse 86 12/16/18 11:24 Resp 20 12/16/18 11:24 BP 128/76 12/16/18 11:24 Pulse Ox 100 12/16/18 11:24 Weight - Most Recent: 62.686 kg - Exam Quality Assessment: Supplemental Oxygen General: Obtunded HEENT: Pupils Equal, Pupils Reactive Neck: No JVD, No Thyromegaly. No: Lymphadenopathy Lungs: Decreased Breath Sounds, Crackles Cardiovascular: Regular Rate, Regular Rhythm. No: Murmurs, Gallops, Rubs GI/Abdominal Exam: Normal Bowel Sounds, Soft. No: Distended Extremities: Normal Inspection, No Pedal Edema, Slow Capillary Refill - Problem List & Annotations (1) Leukocytosis SNOMED Code(s): 632359952, 913046186 Code(s): D72.829 - ELEVATED WHITE BLOOD CELL COUNT, UNSPECIFIED Status: Acute Current Visit: Yes Qualifiers: Leukocytosis type: other Qualified Code(s): D72.828 - Other elevated white blood cell count (2) Oropharyngeal dysphagia SNOMED Code(s): 24608788 Code(s): R13.12 - DYSPHAGIA, OROPHARYNGEAL PHASE Status: Acute Current Visit: Yes (3) Atrial fibrillation SNOMED Code(s): 73597189 Code(s): I48.91 - UNSPECIFIED ATRIAL FIBRILLATION Status: Acute Current Visit: Yes (4) Schizophrenia SNOMED Code(s): 84756121 Code(s): F20.9 - SCHIZOPHRENIA, UNSPECIFIED Status: Acute Current Visit: Yes (5) Dementia SNOMED Code(s): 88163025 Code(s): F03.90 - UNSPECIFIED DEMENTIA WITHOUT BEHAVIORAL DISTURBANCE Status: Acute Current Visit: Yes (6) ANDREW (generalized anxiety disorder) SNOMED Code(s): 99663064 Code(s): F41.1 - GENERALIZED ANXIETY DISORDER Status: Acute Current Visit : Yes (7) Depression SNOMED Code(s): 84188524 Code(s): F32.9 - MAJOR DEPRESSIVE DISORDER, SINGLE EPISODE, UNSPECIFIED Status: Acute Current Visit: Yes (8) Hypertension SNOMED Code(s): 10721336 Code(s): I10 - ESSENTIAL (PRIMARY) HYPERTENSION Status: Acute Current Visit: Yes (9) Dyslipidemia SNOMED Code(s): 891373199 Code(s): E78.5 - HYPERLIPIDEMIA, UNSPECIFIED Status: Acute Current Visit : Yes (10) Chronic constipation SNOMED Code(s): 944175855 Code(s): K59.09 - OTHER CONSTIPATION Status: Acute Current Visit: Yes (11) Benign prostate hyperplasia SNOMED Code(s): 453944383 Code(s): N40.0 - BENIGN PROSTATIC HYPERPLASIA WITHOUT LOWER URINRY TRACT SYMP Status: Acute Current Visit: Yes (12) Altered mental status SNOMED Code(s): 113229979 Code(s): R41.82 - ALTERED MENTAL STATUS, UNSPECIFIED Status: Acute Current Visit: Yes Qualifiers: Altered mental status type: unspecified Qualified Code(s): R41.82 - Altered mental status, unspecified (13) Hypernatremia SNOMED Code(s): 120649629 Code(s): E87.0 - HYPEROSMOLALITY AND HYPERNATREMIA Status: Acute Current Visit: Yes (14) Hypoxia SNOMED Code(s): 366825075 Code(s): R09.02 - HYPOXEMIA Status: Acute Current Visit: Yes (15) Acute kidney failure SNOMED Code(s): 16073110 Code(s): N17.9 - ACUTE KIDNEY FAILURE, UNSPECIFIED Status: Acute Current Visit: Yes (16) Lactic acidosis SNOMED Code(s): 17966406 Code(s): E87.2 - ACIDOSIS Status: Acute Current Visit: Yes (17) Hyperchloremia SNOMED Code(s): 90289527 Code(s): E87.8 - OTH DISORDERS OF ELECTROLYTE AND FLUID BALANCE, NEC Status : Acute Current Visit: Yes (18) Volume depletion SNOMED Code(s): 26083325 Code(s): E86.9 - VOLUME DEPLETION, UNSPECIFIED Status: Acute Current Visit: Yes (19) Acute hypoxemic respiratory failure SNOMED Code(s): 676694855 Code(s): J96.01 - ACUTE RESPIRATORY FAILURE WITH HYPOXIA Status: Acute Current Visit: Yes (20) [facility] resident SNOMED Code(s): 012952715 Code(s): Z59.3 - PROBLEMS RELATED TO LIVING IN RESIDENTIAL INSTITUTION Status: Acute Current Visit: Yes (21) Polypharmacy SNOMED Code(s): 004146549 Code(s): Z79.899 - OTHER 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 (CURRENT) DRUG THERAPY Status: Acute Current Visit: Yes - Problem List Review Problem List Initiated/Reviewed/Updated: Yes - Plan Plan:: Multifactorial altered mental status Acute hypoxemic respiratory failure Hypernatremia + hypoxemia + volume depletion + concern for aspiration + dementia history Multiple central acting medications Given Naloxone in shelter with minimal and transitory improvement Could be part of natural history of disease PLAN - Treat hypernatremia - Speech therapy - Let me sleep protocol - Reconcile medications as per BEERs criteria Acute kidney failure Hypernatremia Hyperchloremia Volume depletion Lactic acidosis Hypernatremia likely chronic as per history by of decreased oral intake although symptoms appear to be sudden onset Labs available from October have a normal Na level Multiple central acting meds that have volume depletion as a side effects PLAN - Continue D5W at 100ml/hr - Repeat electrolytes every 6 hours - Goal daily replacement is no more than 10mEq/day Leukocytosis Likely 2/2 volume depletion No obvious infectious source Improving PLAN - Will repeat in AM - Procalcitonin ordered Oropharyngeal dysphagia Concern for silent aspiration endorses coughing when he eats Has been eating only ensure and magic cups for approximately 3 weeks PLAN - Speech therapy evaluation Atrial fibrillation with RVR Rate in the 140's en route Trend in 80s now Home management with: metoprolol 50mg QD Hypertension BP trend 109-130/76-92 Home management with lisinopril 10mg QD PLAN - Hold all BP meds until volume has been repleted Schizophrenia Dementia ANDREW (generalized anxiety disorder) Depression Home medications: Buspirone 10mg BID, [id number] QD, Donepezil 10mg QD, Namenda 10mg QD, Risperidone 0.5mg QD Chronic pain On fentanyl patch Taken off and given Naloxone today with minimal and transitory improvement PLAN - Hold medications for now Dyslipidemia No acute issues Out of window for statin and niacin benefit Will hold during admission and recommend PCP to evaluate discontinuing medication Chronic constipation Unknown last BM Will have nursing reach out to shelter ' Home meds: Docusate senna 50/8.6mg QD; PRN Milk of Magnesia Benign prostate hyperplasia No acute issues Home medications, tamsulosin and finasteride Lactic acidosis, RESOLVED PROPHYLAXIS DVT- Lovenox GI- not indicated CODE STATUS: DNR/DNI DISPOSITION: Patient will be admitted for IV fluid repletion, sodium correction and monitorization of mental status.
[2018-12-16] MEDS: Potassium Chloride 10 MEQ in Premix Bag 1 BAG IV SCH ×2 (13:37→14:43)
[2018-12-16] MEDS: Levofloxacin/Dextrose 5%-Water 750 MG in Premix Bag 1 BAG IV SCH (15:14)
[2018-12-16] MEDS ORDERED: HYDROmorphone 0.5 MG/0.5 ML Syringe IVPUSH PRN (17:14)
[2018-12-17] MEDS: Potassium Chloride 20 MEQ Tab.ER PO SCH ×3 (00:41→21:31)
[2018-12-17] MEDS: Piperacillin/Tazobactam 4.5 GM in Sodium Chloride 0.9% 100 ML IV SCH ×2 (00:41→09:40)
[2018-12-17] MEDS: Enoxaparin 40 MG/0.4 ML Syringe SUBCUT SCH (09:40)
[2018-12-17] MEDS: Potassium Chloride 10 MEQ in Premix Bag 1 BAG IV SCH ×4 (16:00→19:12)
[2018-12-17] MEDS: Dextrose 5% in Water 1,000 ML IV SCH (16:00)
[2018-12-17] MEDS ORDERED: Acetaminophen 325 MG/10.15 ML ML PO PRN (16:58)
[2018-12-17] MEDS ORDERED: Haloperidol Lactate 5 MG/ML SDV IVPUSH PRN (17:03)
--- NOTE | 2018-12-17 17:05 | PCM.PN ---
- General Info Date of Service: 12/17/18 Subjective Update: More responsive to staff - Patient Data Vitals - Most Recent: Last Vital Signs Temp 37.2 C 12/17/18 14:58 Pulse 95 12/17/18 14:58 Resp 18 12/17/18 14:58 BP 117/88 12/17/18 14:58 Pulse Ox 97 12/17/18 14:58 Weight - Most Recent: 62.686 kg - Exam Quality Assessment: Supplemental Oxygen General: Lethargic HEENT: Pupils Equal, Pupils Reactive Neck: Trachea Midline, No JVD Lungs: Decreased Breath Sounds, Crackles Cardiovascular: Regular Rate, Regular Rhythm GI/Abdominal Exam: Normal Bowel Sounds, Soft, No Organomegaly, No Distention Extremities: Normal Inspection, No Pedal Edema, Slow Capillary Refill - Problem List & Annotations (1) Leukocytosis SNOMED Code(s): 659669410, 346777059 Code(s): D72.829 - ELEVATED WHITE BLOOD CELL COUNT, UNSPECIFIED Status: Acute Current Visit: Yes Qualifiers: Leukocytosis type: other Qualified Code(s): D72.828 - Other elevated white blood cell count (2) Oropharyngeal dysphagia SNOMED Code(s): 22991392 Code(s): R13.12 - DYSPHAGIA, OROPHARYNGEAL PHASE Status: Acute Current Visit: Yes (3) Atrial fibrillation SNOMED Code(s): 40679509 Code(s): I48.91 - UNSPECIFIED ATRIAL FIBRILLATION Status: Acute Current Visit: Yes (4) Schizophrenia SNOMED Code(s): 08510147 Code(s): F20.9 - SCHIZOPHRENIA, UNSPECIFIED Status: Acute Current Visit: Yes (5) Dementia SNOMED Code(s): 99993803 Code(s): F03.90 - UNSPECIFIED DEMENTIA WITHOUT BEHAVIORAL DISTURBANCE Status: Acute Current Visit: Yes (6) ANDREW (generalized anxiety disorder) SNOMED Code(s): 73724801 Code(s): F41.1 - GENERALIZED ANXIETY DISORDER Status: Acute Current Visit : Yes (7) Depression SNOMED Code(s): 82992896 Code(s): F32.9 - MAJOR DEPRESSIVE DISORDER, SINGLE EPISODE, UNSPECIFIED Status: Acute Current Visit: Yes (8) Hypertension SNOMED Code(s): 27972161 Code(s): I10 - ESSENTIAL (PRIMARY) HYPERTENSION Status: Acute Current Visit: Yes (9) Dyslipidemia SNOMED Code(s): 302309157 Code(s): E78.5 - HYPERLIPIDEMIA, UNSPECIFIED Status: Acute Current Visit : Yes (10) Chronic constipation SNOMED Code(s): 205625979 Code(s): K59.09 - OTHER CONSTIPATION Status: Acute Current Visit: Yes (11) Benign prostate hyperplasia SNOMED Code(s): 053474507 Code(s): N40.0 - BENIGN PROSTATIC HYPERPLASIA WITHOUT LOWER URINRY TRACT SYMP Status: Acute Current Visit: Yes (12) Altered mental status SNOMED Code(s): 064401625 Code(s): R41.82 - ALTERED MENTAL STATUS, UNSPECIFIED Status: Acute Current Visit: Yes Qualifiers: Altered mental status type: unspecified Qualified Code(s): R41.82 - Altered mental status, unspecified (13) Hypernatremia SNOMED Code(s): 896267637 Code(s): E87.0 - HYPEROSMOLALITY AND HYPERNATREMIA Status: Acute Current Visit: Yes (14) Hypoxia SNOMED Code(s): 790245922 Code(s): R09.02 - HYPOXEMIA Status: Acute Current Visit: Yes (15) Acute kidney failure SNOMED Code(s): 12969246 Code(s): N17.9 - ACUTE KIDNEY FAILURE, UNSPECIFIED Status: Acute Current Visit: Yes (16) Lactic acidosis SNOMED Code(s): 20042573 Code(s): E87.2 - ACIDOSIS Status: Acute Current Visit: Yes (17) Hyperchloremia SNOMED Code(s): 46364230 Code(s): E87.8 - OTH DISORDERS OF ELECTROLYTE AND FLUID BALANCE, NEC Status : Acute Current Visit: Yes (18) Volume depletion SNOMED Code(s): 38068760 Code(s): E86.9 - VOLUME DEPLETION, UNSPECIFIED Status: Acute Current Visit: Yes (19) Acute hypoxemic respiratory failure SNOMED Code(s): 202915996 Code(s): J96.01 - ACUTE RESPIRATORY FAILURE WITH HYPOXIA Status: Acute Current Visit: Yes (20) senior care resident SNOMED Code(s): 338139236 Code(s): Z59.3 - PROBLEMS RELATED TO LIVING IN RESIDENTIAL INSTITUTION Status: Acute Current Visit: Yes (21) Polypharmacy SNOMED Code(s): 057193852 Code(s): Z79.899 - OTHER 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 (CURRENT) DRUG THERAPY Status: Acute Current Visit: Yes - Problem List Review Problem List Initiated/Reviewed/Updated: Yes - Plan Plan:: Multifactorial altered mental status, improved Acute hypoxemic respiratory failure, improved Hypernatremia + hypoxemia + volume depletion + concern for aspiration + dementia history Multiple central acting medications Given Naloxone in [facility] with minimal and transitory improvement Sodium better at 156 + all meds are held improved mental status PLAN - Treat hypernatremia - Speech therapy - Let me sleep protocol - Reconcile medications as per BEERs criteria Acute kidney failure, improved Hypernatremia, improved Hyperchloremia, improved Volume depletion, stable Lactic acidosis on admission Hypernatremia likely chronic as per history by of decreased oral intake although symptoms appear to be sudden onset Labs available from October have a normal Na level Multiple central acting meds that have volume depletion as a side effect PLAN - Continue D5W at 100ml/hr - Repeat electrolytes every 6 hours - Goal daily replacement is no more than 10mEq/day Leukocytosis Likely 2/2 volume depletion No obvious infectious source Improving PLAN - Procalcitonin ordered Oropharyngeal dysphagia Concern for silent aspiration endorses coughing when he eats Has been eating only ensure and magic cups for approximately 3 weeks PLAN - Speech therapy evaluation Atrial fibrillation with RVR Rate in the 140's en route Trend in 80s now Home management with: metoprolol 50mg QD Hypertension BP trend 109-130/76-92 Home management with lisinopril 10mg QD PLAN - Hold all BP meds until volume has been repleted Schizophrenia Dementia ANDREW (generalized anxiety disorder) Depression Chronic pain Home medications: Buspirone 10mg BID, [id number] QD, Donepezil 10mg QD, Namenda 10mg QD, Risperidone 0.5mg QD, fentanyl patch PLAN - Hold all central acting meds Dyslipidemia No acute issues Out of window for statin and niacin benefit Will hold during admission and recommend PCP to evaluate discontinuing medication Chronic constipation Unknown last BM Will have nursing reach out to [facility] ' Home meds: Docusate senna 50/8.6mg QD; PRN Milk of Magnesia'PLAN - Start lactulose q 6 until BM Benign prostate hyperplasia No acute issues Home medications, tamsulosin and finasteride PROPHYLAXIS DVT- Lovenox GI- not indicated CODE STATUS: DNR/DNI DISPOSITION: Patient will be admitted for IV fluid repletion, sodium correction and monitorization of mental status.
[2018-12-17] MEDS ORDERED: LORazepam 0.5 MG Tab PO PRN (17:15)
[2018-12-17] MEDS: Lactulose Soln 10 GM/15 ML 30 ML UD Cup PO SCH (18:43)
[2018-12-17] MEDS ORDERED: busPIRone 5 MG Tab PO SCH (21:00)
[2018-12-18] MEDS: Lactulose Soln 10 GM/15 ML 30 ML UD Cup PO SCH
[2018-12-18] MEDS ORDERED: Labetalol 100 MG/20 ML MDV IVPUSH ONE (04:04)
[2018-12-18] MEDS ORDERED: risperiDONE 0.25 MG Tab PO SCH (09:00)
[2018-12-18] MEDS ORDERED: Donepezil 10 MG Tab PO SCH (09:00)
[2018-12-18] MEDS ORDERED: risperiDONE 0.5 MG Tab PO SCH (09:00)
[2018-12-18] MEDS ORDERED: Citalopram 20 MG Tab PO SCH (09:00)
[2018-12-18] MEDS: Sennosides 8.6 MG Tab PO SCH (09:48)
[2018-12-18] MEDS: Tamsulosin 0.4 MG Cap.ER PO SCH (09:48)
[2018-12-18] MEDS: Metoprolol Succinate 50 MG Tab.ER PO SCH (09:48)
[2018-12-18] MEDS: Finasteride 5 MG Tab PO SCH (09:48)
[2018-12-18] MEDS: Enoxaparin 40 MG/0.4 ML Syringe SUBCUT SCH (09:50)
[2018-12-18] MEDS: Potassium Chloride 20 MEQ Tab.ER PO SCH ×3 (09:50→20:49)
[2018-12-18] MEDS: Dextrose 5% in Water 1,000 ML IV SCH (10:59)
[2018-12-18] MEDS ORDERED: fentaNYL 12 MCG/HR Transdermal Patch TRDERM SCH (14:00)
--- NOTE | 2018-12-18 14:10 | PCM.PN ---
- General Info Date of Service: 12/18/18 Subjective Update: Non communicative Episode of BP 173/108 last night - Patient Data Vitals - Most Recent: Last Vital Signs Temp 99.1 F 12/18/18 03:30 Pulse 89 12/18/18 09:48 Resp 17 12/18/18 03:30 BP 152/91 H 12/18/18 09:48 Pulse Ox 98 12/18/18 03:30 Weight - Most Recent: 140 lb 4.8 oz I&O - Last 24 Hours: Intake & Output 12/17/18 12/18/18 12/18/18 22:59 06:59 14:59 Intake Total 1800 701 120 Balance 1800 701 120 Lab Results Last 24 Hours: Laboratory Results - last 24 hr 12/17/18 12/17/18 12/18/18 Range/Units 16:18 22:15 04:05 WBC (4.23-9.07) K/mm3 RBC (4.63-6.08) M/mm3 Hgb (13.7-17.5) gm/dl Hct (40.1-51.0) % MCV (79.0-92.2) fl MCH (25.7-32.2) pg MCHC (32.2-35.5) g/dl RDW Std Deviation (35.1-43.9) fL Plt Count (163-337) K/mm3 MPV (9.4-12.3) fl Neut % (Auto) (34.0-67.9) % Lymph % (Auto) (21.8-53.1) % [place] % (Auto) (5.3-12.2) % Eos % (Auto) (0.8-7.0) Baso % (Auto) (0.1-1.2) % Neut # (Auto) (1.78-5.38) K/mm3 Lymph # (Auto) (1.32-3.57) K/mm3 [place] # (Auto) (0.30-0.82) K/mm3 Eos # (Auto) (0.04-0.54) K/mm3 Baso # (Auto) (0.01-0.08) K/mm3 Manual Slide Review Sodium 152 H 152 H 152 H (136-145) mEq/L Potassium 3.6 4.0 3.9 (3.5-5.1) mEq/L Chloride 117 H 115 H 116 H (98-107) mEq/L Carbon Dioxide 29 29 25 (21-32) mEq/L Anion Gap 9.6 12.0 14.9 (5-15) BUN 28 H 25 H 21 H (7-18) mg/dL Creatinine 0.9 1.0 0.9 (0.7-1.3) mg/dL Est Cr Clr Drug Dosing 56.11 50.50 56.96 mL/min Estimated GFR (MDRD) > 60 > 60 > 60 (>60) mL/min BUN/Creatinine Ratio 31.1 H 25.0 H 23.3 H (14-18) Glucose 117 H 106 125 H (83-115) mg/dL Calcium 8.9 9.4 9.3 (8.5-10.1) mg/dL Phosphorus 2.5 L 2.6 2.5 L (2.6-4.7) mg/dL Magnesium 2.3 2.4 2.2 (1.8-2.4) mg/dl 12/18/18 12/18/18 Range/Units 04:05 10:10 WBC 12.72 H (4.23-9.07) K/mm3 RBC 4.18 L (4.63-6.08) M/mm3 Hgb 13.4 L (13.7-17.5) gm/dl Hct 41.9 (40.1-51.0) % MCV 100.2 H D (79.0-92.2) fl MCH 32.1 (25.7-32.2) pg MCHC 32.0 L (32.2-35.5) g/dl RDW Std Deviation 48.4 H (35.1-43.9) fL Plt Count 160 L (163-337) K/mm3 MPV 11.5 (9.4-12.3) fl Neut % (Auto) 85.9 H (34.0-67.9) % Lymph % (Auto) 7.0 L (21.8-53.1) % [place] % (Auto) 6.5 (5.3-12.2) % Eos % (Auto) 0.3 L (0.8-7.0) Baso % (Auto) 0.1 (0.1-1.2) % Neut # (Auto) 10.92 H (1.78-5.38) K/mm3 Lymph # (Auto) 0.89 L (1.32-3.57) K/mm3 [place] # (Auto) 0.83 H (0.30-0.82) K/mm3 Eos # (Auto) 0.04 (0.04-0.54) K/mm3 Baso # (Auto) 0.01 (0.01-0.08) K/mm3 Manual Slide Review Abnormal smear Sodium 150 H (136-145) mEq/L Potassium 3.9 (3.5-5.1) mEq/L Chloride 114 H (98-107) mEq/L Carbon Dioxide 26 (21-32) mEq/L Anion Gap 13.9 (5-15) BUN 19 H (7-18) mg/dL Creatinine 0.9 (0.7-1.3) mg/dL Est Cr Clr Drug Dosing 56.96 mL/min Estimated GFR (MDRD) > 60 (>60) mL/min BUN/Creatinine Ratio 21.1 H (14-18) Glucose 176 H (83-115) mg/dL Calcium 9.0 (8.5-10.1) mg/dL Phosphorus 3.0 (2.6-4.7) mg/dL Magnesium 2.3 (1.8-2.4) mg/dl Sid Results Last 24 Hours: Microbiology 12/15/18 15:10 Aerobic Blood Culture - Preliminary Blood - Venous NO GROWTH AFTER 2 DAYS Anaerobic Blood Culture - Preliminary NO GROWTH AFTER 2 DAYS 12/15/18 15:25 Aerobic Blood Culture - Preliminary Blood - Venous - Lab Draw NO GROWTH AFTER 2 DAYS Anaerobic Blood Culture - Preliminary NO GROWTH AFTER 2 DAYS 12/15/18 15:55 Urine Culture - Final Urine, Catheterized NO GROWTH AFTER 2 DAYS Med Orders - Current: Current Medications Acetaminophen (Tylenol) 325 mg PO Q6H PRN PRN Reason: Pain Enoxaparin Sodium (Lovenox) 40 mg SUBCUT DAILY PENDING SALE TO [facility] Last Admin: 12/18/18 09:50 Dose: 40 mg Finasteride (Proscar) 5 mg PO DAILY PENDING SALE TO [facility] Last Admin: 12/18/18 09:48 Dose: 5 mg Dextrose/Water (Dextrose 5% In Water) 1,000 mls @ 75 mls/hr IV ASDIRECTED PENDING SALE TO [facility] Last Admin: 12/18/18 10:59 Dose: 75 mls/hr Metoprolol Succinate (Toprol Xl) 50 mg PO DAILY PENDING SALE TO [facility] Last Admin: 12/18/18 09:48 Dose: 50 mg Potassium Chloride (Klor-Con M20) 40 meq PO BID PENDING SALE TO [facility] Last Admin: 12/18/18 09:50 Dose: 40 meq Senna (Senna) 8.6 mg PO DAILY PENDING SALE TO [facility] Last Admin: 12/18/18 09:48 Dose: 8.6 mg Sodium Chloride (Saline Flush) 10 ml FLUSH ASDIRECTED PRN PRN Reason: Keep Vein Open Last Admin: 12/15/18 15:13 Dose: 10 ml Tamsulosin HCl (Flomax) 0.4 mg PO DAILY PENDING SALE TO [facility] Last Admin: 12/18/18 09:48 Dose: 0.4 mg Discontinued Medications Buspirone HCl (Buspar) 10 mg PO BID PENDING SALE TO [facility] Citalopram Hydrobromide (Celexa) 20 mg PO DAILY PENDING SALE TO [facility] Donepezil HCl (Aricept) 10 mg PO DAILY PENDING SALE TO [facility] Fentanyl (Duragesic) 12 mcg TRDERM Q72H PENDING SALE TO [facility] Haloperidol Lactate (Haldol) 1 mg IVPUSH ONETIME PRN PRN Reason: Agitation Hydromorphone HCl (Dilaudid) 0.25 mg IVPUSH Q4HR PRN PRN Reason: Pain Last Admin: 12/17/18 16:00 Dose: 0.25 mg Sodium Chloride (Normal Saline) 1,000 mls @ 999 mls/hr IV BOLUS ONE Stop: 12/15/18 15:57 Last Admin: 12/15/18 15:13 Dose: 999 mls/hr Piperacillin Sod/Tazobactam (Sod 4.5 gm/ Sodium Chloride) 100 mls @ 25 mls/hr IV Q8H PENDING SALE TO [facility] Last Admin: 12/15/18 22:32 Dose: Not Given Levofloxacin/Dextrose 750 mg/ (Premix) 150 mls @ 100 mls/hr IV Q24H PENDING SALE TO [facility] Last Admin: 12/16/18 15:14 Dose: 100 mls/hr Lactated Ringer's (Ringers, Lactated) 1,000 mls @ 999 mls/hr IV .BOLUS ONE Stop: 12/15/18 17:06 Last Admin: 12/15/18 16:14 Dose: 999 mls/hr Piperacillin Sod/Tazobactam (Sod 4.5 gm/ Sodium Chloride) 100 mls @ 200 mls/hr IV ONETIME ONE Stop: 12/15/18 16:44 Last Admin: 12/15/18 16:20 Dose: 200 mls/hr Piperacillin Sod/Tazobactam (Sod 4.5 gm/ Sodium Chloride) 100 mls @ 25 mls/hr IV Q8H PENDING SALE TO [facility] Last Admin: 12/17/18 09:40 Dose: 25 mls/hr Dextrose/Water (Dextrose 5% In Water) 1,000 mls @ 100 mls/hr IV ASDIRECTED PENDING SALE TO [facility] Last Admin: 12/16/18 06:56 Dose: 100 mls/hr Potassium Chloride 10 meq/ (Premix) 100 mls @ 100 mls/hr IV Q1H PENDING SALE TO [facility] Stop: 12/16/18 12:59 Last Admin: 12/16/18 11:59 Dose: Not Given Potassium Chloride 10 meq/ (Premix) 100 mls @ 100 mls/hr IV Q1H PENDING SALE TO [facility] Stop: 12/16/18 14:59 Last Admin: 12/16/18 14:43 Dose: 100 mls/hr Dextrose/Water (Dextrose 5% In Water) 1,000 mls @ 75 mls/hr IV ASDIRECTED PENDING SALE TO [facility] Last Admin: 12/17/18 16:00 Dose: 50 mls/hr Potassium Chloride 10 meq/ (Premix) 100 mls @ 100 mls/hr IV Q1H PENDING SALE TO [facility] Stop: 12/17/18 19:14 Last Admin: 12/17/18 19:12 Dose: 100 mls/hr Labetalol HCl (Normodyne) 10 mg IVPUSH ONETIME ONE; Protocol Stop: 12/18/18 04:05 Last Admin: 12/18/18 04:20 Dose: 10 mg Lactulose (Cephulac) 20 gm PO Q6H PENDING SALE TO [facility] Last Admin: 12/18/18 00:00 Dose: 20 gm Lorazepam (Ativan) 0.5 mg PO BID PRN PRN Reason: Anxiety Miscellaneous Information (Remove Patch) 1 ea TRDERM Q72H PENDING SALE TO [facility] Naloxone HCl (Narcan) 1 mg IVPUSH ONETIME ONE Stop: 12/15/18 18:24 Last Admin: 12/15/18 18:52 Dose: 1 mg Potassium Chloride (Klor-Con M20) 20 meq PO BID PENDING SALE TO [facility] Last Admin: 12/17/18 09:39 Dose: 20 meq Risperidone (Risperidal) 0.5 mg PO DAILY ISATU Risperidone (Risperidal) 0.25 mg PO DAILY ISATU - Exam General: Lethargic HEENT: Pupils Equal Neck: Supple Lungs: Normal Respiratory Effort, Other (Upper airway noise) Cardiovascular: Regular Rate, Irregular Rhythm GI/Abdominal Exam: Normal Bowel Sounds, Soft, Non-Tender Extremities: Normal Inspection Neurological: No: Normal Speech - Problem List Review Problem List Initiated/Reviewed/Updated: Yes - Plan Plan:: Multifactorial altered mental status, improved Acute hypoxemic respiratory failure, improved Hypernatremia + hypoxemia + volume depletion + concern for aspiration + dementia history Multiple central acting medications Given Naloxone in [facility] with minimal and transitory improvement Sodium better at 150 + all meds are held improved mental status PLAN - Treat hypernatremia - Speech therapy - Let me sleep protocol - Reconcile medications as per BEERs criteria Acute kidney failure, improved Hypernatremia, improved Hyperchloremia, improved Volume depletion, stable Lactic acidosis on admission Hypernatremia likely chronic as per history by of decreased oral intake although symptoms appear to be sudden onset Labs available from October have a normal Na level Multiple central acting meds that have volume depletion as a side effect PLAN - Continue D5W at 100ml/hr - Repeat electrolytes every 6 hours - Goal daily replacement is decrease sodium no more than 10mEq/day Leukocytosis Likely 2/2 volume depletion No obvious infectious source Improving PLAN - Procalcitonin ordered Oropharyngeal dysphagia Concern for silent aspiration endorses coughing when he eats Has been eating only ensure and magic cups for approximately 3 weeks PLAN - Speech therapy evaluation recommends nectar thick liquids Atrial fibrillation with RVR Rate in the 140's en route Trend in 80s now Home management with: metoprolol 50mg QD Hypertension Episode of BP 173/108 last night PLAN - Restart all BP meds (lisinopril 10 mg) Schizophrenia Dementia ANDREW (generalized anxiety disorder) Depression Chronic pain Home medications: Buspirone 10mg BID, [id number] QD, Donepezil 10mg QD, Namenda 10mg QD, Risperidone 0.5mg QD, fentanyl patch PLAN - Hold all central acting meds Dyslipidemia No acute issues Out of window for statin and niacin benefit Will hold during admission and recommend PCP to evaluate discontinuing medication Chronic constipation Unknown last BM Will have nursing reach out to [facility] ' Home meds: Docusate senna 50/8.6mg QD; PRN Milk of Magnesia'PLAN Benign prostate hyperplasia No acute issues Home medications, tamsulosin and finasteride PROPHYLAXIS DVT- Lovenox GI- not indicated CODE STATUS: DNR/DNI DISPOSITION: Patient will be admitted for IV fluid repletion, sodium correction and monitorization of mental status.
[2018-12-18] MEDS: Lisinopril 10 MG Tab PO SCH (15:16)
[2018-12-18] MEDS: Potassium Chloride 10 MEQ in Premix Bag 1 BAG IV SCH ×2 (21:33→22:32)
[2018-12-19] MEDS: Dextrose 5% in Water 1,000 ML IV SCH ×2 (00:53→14:18)
[2018-12-19] MEDS: Enoxaparin 40 MG/0.4 ML Syringe SUBCUT SCH (08:53)
[2018-12-19] MEDS: Potassium Chloride 20 MEQ Tab.ER PO SCH ×2 (08:56→21:17)
[2018-12-19] MEDS: Tamsulosin 0.4 MG Cap.ER PO SCH (08:57)
[2018-12-19] MEDS: Sennosides 8.6 MG Tab PO SCH (08:57)
[2018-12-19] MEDS: Finasteride 5 MG Tab PO SCH (08:57)
[2018-12-19] MEDS: Metoprolol Succinate 50 MG Tab.ER PO SCH (08:58)
[2018-12-19] MEDS: Lisinopril 10 MG Tab PO SCH (08:58)
--- NOTE | 2018-12-19 14:51 | PCM.PN ---
- General Info Date of Service: 12/19/18 Admission Dx/Problem (Free Text): Hypernatremia Subjective Update: Non communicative, but appears more alert. spoke with family about long-term plan for treatment. Patient's living will expressly prohibits the use of a G-tube. They would like to talk to hospice and consider returning to [facility] tomorrow. - Review of Systems General: Reports: Other (Unable to obtain) - Patient Data Vitals - Most Recent: Last Vital Signs Temp 99.3 F 12/19/18 12:11 Pulse 77 12/19/18 12:12 Resp 20 12/19/18 12:12 BP 141/92 H 12/19/18 12:11 Pulse Ox 97 12/19/18 12:12 Weight - Most Recent: 137 lb 9.6 oz I&O - Last 24 Hours: Intake & Output 12/18/18 12/19/18 12/19/18 22:59 06:59 14:59 Intake Total 943 1200 360 Balance 943 1200 360 Lab Results Last 24 Hours: Laboratory Results - last 24 hr 12/18/18 12/18/18 12/19/18 Range/Units 16:25 22:30 04:15 Sodium 147 H 145 145 (136-145) mEq/L Potassium 3.9 3.9 3.8 (3.5-5.1) mEq/L Chloride 112 H 112 H 112 H (98-107) mEq/L Carbon Dioxide 26 25 24 (21-32) mEq/L Anion Gap 12.9 11.9 12.8 (5-15) BUN 18 19 H 18 (7-18) mg/dL Creatinine 0.8 0.7 0.8 (0.7-1.3) mg/dL Est Cr Clr Drug Dosing 64.08 73.24 62.85 mL/min Estimated GFR (MDRD) > 60 > 60 > 60 (>60) mL/min BUN/Creatinine Ratio 22.5 H 27.1 H 22.5 H (14-18) Glucose 182 H 129 H 126 H (83-115) mg/dL Calcium 9.1 8.8 9.0 (8.5-10.1) mg/dL Phosphorus 2.6 2.6 2.4 L (2.6-4.7) mg/dL Magnesium 2.3 2.3 2.3 (1.8-2.4) mg/dl Sid Results Last 24 Hours: Microbiology 12/15/18 15:10 Aerobic Blood Culture - Preliminary Blood - Venous NO GROWTH AFTER 3 DAYS Anaerobic Blood Culture - Preliminary NO GROWTH AFTER 3 DAYS 12/15/18 15:25 Aerobic Blood Culture - Preliminary Blood - Venous - Lab Draw NO GROWTH AFTER 3 DAYS Anaerobic Blood Culture - Preliminary NO GROWTH AFTER 3 DAYS Med Orders - Current: Current Medications Acetaminophen (Tylenol) 325 mg PO Q6H PRN PRN Reason: Pain Enoxaparin Sodium (Lovenox) 40 mg SUBCUT DAILY [facility] Last Admin: 12/19/18 08:53 Dose: 40 mg Finasteride (Proscar) 5 mg PO DAILY [facility] Last Admin: 12/19/18 08:57 Dose: 5 mg Dextrose/Water (Dextrose 5% In Water) 1,000 mls @ 75 mls/hr IV ASDIRECTED [facility] Last Admin: 12/19/18 14:18 Dose: 75 mls/hr Lisinopril (Prinivil) 10 mg PO DAILY [facility] Last Admin: 12/19/18 08:58 Dose: 10 mg Metoprolol Succinate (Toprol Xl) 50 mg PO DAILY [facility] Last Admin: 12/19/18 08:58 Dose: 50 mg Potassium Chloride (Klor-Con M20) 40 meq PO BID [facility] Last Admin: 12/19/18 08:56 Dose: 40 meq Senna (Senna) 8.6 mg PO DAILY [facility] Last Admin: 12/19/18 08:57 Dose: 8.6 mg Sodium Chloride (Saline Flush) 10 ml FLUSH ASDIRECTED PRN PRN Reason: Keep Vein Open Last Admin: 12/15/18 15:13 Dose: 10 ml Tamsulosin HCl (Flomax) 0.4 mg PO DAILY [facility] Last Admin: 12/19/18 08:57 Dose: 0.4 mg Discontinued Medications Buspirone HCl (Buspar) 10 mg PO BID [facility] Citalopram Hydrobromide (Celexa) 20 mg PO DAILY [facility] Donepezil HCl (Aricept) 10 mg PO DAILY [facility] Fentanyl (Duragesic) 12 mcg TRDERM Q72H [facility] Haloperidol Lactate (Haldol) 1 mg IVPUSH ONETIME PRN PRN Reason: Agitation Hydromorphone HCl (Dilaudid) 0.25 mg IVPUSH Q4HR PRN PRN Reason: Pain Last Admin: 12/17/18 16:00 Dose: 0.25 mg Sodium Chloride (Normal Saline) 1,000 mls @ 999 mls/hr IV BOLUS ONE Stop: 12/15/18 15:57 Last Admin: 12/15/18 15:13 Dose: 999 mls/hr Piperacillin Sod/Tazobactam (Sod 4.5 gm/ Sodium Chloride) 100 mls @ 25 mls/hr IV Q8H [facility] Last Admin: 12/15/18 22:32 Dose: Not Given Levofloxacin/Dextrose 750 mg/ (Premix) 150 mls @ 100 mls/hr IV Q24H [facility] Last Admin: 12/16/18 15:14 Dose: 100 mls/hr Lactated Ringer's (Ringers, Lactated) 1,000 mls @ 999 mls/hr IV .BOLUS ONE Stop: 12/15/18 17:06 Last Admin: 12/15/18 16:14 Dose: 999 mls/hr Piperacillin Sod/Tazobactam (Sod 4.5 gm/ Sodium Chloride) 100 mls @ 200 mls/hr IV ONETIME ONE Stop: 12/15/18 16:44 Last Admin: 12/15/18 16:20 Dose: 200 mls/hr Piperacillin Sod/Tazobactam (Sod 4.5 gm/ Sodium Chloride) 100 mls @ 25 mls/hr IV Q8H [facility] Last Admin: 12/17/18 09:40 Dose: 25 mls/hr Dextrose/Water (Dextrose 5% In Water) 1,000 mls @ 100 mls/hr IV ASDIRECTED [facility] Last Admin: 12/16/18 06:56 Dose: 100 mls/hr Potassium Chloride 10 meq/ (Premix) 100 mls @ 100 mls/hr IV Q1H [facility] Stop: 12/16/18 12:59 Last Admin: 12/16/18 11:59 Dose: Not Given Potassium Chloride 10 meq/ (Premix) 100 mls @ 100 mls/hr IV Q1H [facility] Stop: 12/16/18 14:59 Last Admin: 12/16/18 14:43 Dose: 100 mls/hr Dextrose/Water (Dextrose 5% In Water) 1,000 mls @ 75 mls/hr IV ASDIRECTED [facility] Last Admin: 12/17/18 16:00 Dose: 50 mls/hr Potassium Chloride 10 meq/ (Premix) 100 mls @ 100 mls/hr IV Q1H [facility] Stop: 12/17/18 19:14 Last Admin: 12/17/18 19:12 Dose: 100 mls/hr Potassium Chloride 10 meq/ (Premix) 100 mls @ 100 mls/hr IV Q1H [facility] Stop: 12/18/18 22:59 Last Admin: 12/18/18 22:32 Dose: 100 mls/hr Labetalol HCl (Normodyne) 10 mg IVPUSH ONETIME ONE; Protocol Stop: 12/18/18 04:05 Last Admin: 12/18/18 04:20 Dose: 10 mg Lactulose (Cephulac) 20 gm PO Q6H [facility] Last Admin: 12/18/18 00:00 Dose: 20 gm Lorazepam (Ativan) 0.5 mg PO BID PRN PRN Reason: Anxiety Miscellaneous Information (Remove Patch) 1 ea TRDERM Q72H [facility] Naloxone HCl (Narcan) 1 mg IVPUSH ONETIME ONE Stop: 12/15/18 18:24 Last Admin: 12/15/18 18:52 Dose: 1 mg Potassium Chloride (Klor-Con M20) 20 meq PO BID [facility] Last Admin: 12/17/18 09:39 Dose: 20 meq Risperidone (Risperidal) 0.5 mg PO DAILY [facility] Risperidone (Risperidal) 0.25 mg PO DAILY [facility] - Exam General: Lethargic Neck: Supple Lungs: Clear to Auscultation, Normal Respiratory Effort Cardiovascular: Regular Rate, Regular Rhythm GI/Abdominal Exam: Normal Bowel Sounds, Soft, Non-Tender, No Distention Extremities: Normal Inspection, Normal Range of Motion, Non-Tender, No Pedal Edema Skin: Warm, Dry, Intact - Problem List Review Problem List Initiated/Reviewed/Updated: Yes - My Orders Last 24 Hours: My Active Orders 12/18/18 14:15 Lisinopril [Prinivil] 10 mg PO DAILY - Plan Plan:: Multifactorial altered mental status, improved Acute hypoxemic respiratory failure, improved Hypernatremia + hypoxemia + volume depletion + concern for aspiration + dementia history Multiple central acting medications Given Naloxone in [facility] with minimal and transitory improvement Sodium better at 145 All meds are held improved mental status PLAN - Consult Hospice - continue D5W wall in the hospital - Let me sleep protocol Acute kidney failure, improved Hypernatremia, improved Hyperchloremia, improved Volume depletion, stable Lactic acidosis on admission Hypernatremia likely chronic as per history by of decreased oral intake although symptoms appear to be sudden onset Labs available from October have a normal Na level Multiple central acting meds that have volume depletion as a side effect PLAN - Continue D5W at 75ml/hr - Repeat electrolytes every 6 hours - Goal daily replacement is decrease sodium no more than 10mEq/day Leukocytosis Likely 2/2 volume depletion No obvious infectious source Improving PLAN - Procalcitonin ordered Oropharyngeal dysphagia Concern for silent aspiration endorses coughing when he eats Has been eating only ensure and magic cups for approximately 3 weeks PLAN - Speech therapy evaluation recommends nectar thick liquids Atrial fibrillation with RVR Rate in the 140's en route Trend in 80s now Home management with: metoprolol 50mg QD Hypertension BP 140s/90s PLAN - Restart all BP meds (lisinopril 10 mg) Schizophrenia Dementia ANDREW (generalized anxiety disorder) Depression Chronic pain Home medications: Buspirone 10mg BID, [id number] QD, Donepezil 10mg QD, Namenda 10mg QD, Risperidone 0.5mg QD, fentanyl patch PLAN - Hold all central acting meds Dyslipidemia No acute issues Out of window for statin and niacin benefit Will hold during admission and recommend PCP to evaluate discontinuing medication Chronic constipation Unknown last BM Will have nursing reach out to [facility] ' Home meds: Docusate senna 50/8.6mg QD; PRN Milk of Magnesia Benign prostate hyperplasia No acute issues Home medications, tamsulosin and finasteride PROPHYLAXIS DVT- Lovenox GI- not indicated CODE STATUS: DNR/DNI DISPOSITION: length of stay greater than 96 hours secondary to slow resolution of hypernatremia. Consult hospice today and plan on discharge tomorrow.
[2018-12-20] MEDS: Dextrose 5% in Water 1,000 ML IV SCH (04:57)
[2018-12-20] MEDS: Metoprolol Succinate 50 MG Tab.ER PO SCH (09:50)
[2018-12-20] MEDS: Finasteride 5 MG Tab PO SCH (09:51)
[2018-12-20] MEDS: Lisinopril 10 MG Tab PO SCH (09:51)
[2018-12-20] MEDS: Sennosides 8.6 MG Tab PO SCH (09:51)
[2018-12-20] MEDS: Tamsulosin 0.4 MG Cap.ER PO SCH (09:51)
[2018-12-20] MEDS: Enoxaparin 40 MG/0.4 ML Syringe SUBCUT SCH (09:52)
[2018-12-20] MEDS: Potassium Chloride 20 MEQ Tab.ER PO SCH (11:43)
--- NOTE | 2018-12-20 12:26 | PCM.DCSUM1 ---
Discharge Summary - Hospital Course HPI Initial Comments: INFORMATION IS VERY LIMITED DUE TO PATIENT BEING ALTERED AND LIVES IN SENIOR CARE. OBTAINED FROM ED PHYSICIAN, NURSE AND Patient is a correction resident who was found to be diaphoretic with an altered mental status around noon at correction ([facility]) ivtal signs were obtained at that time and patient was found to be febrile, tachycardic, tachypneic and BP within normal limits. He was also found to be hypoxemic, placed on NRB 10L which brought his o2 sat up to 94% As per patient's he has been having decreased oral intake in the past 3-4 weeks, she sees patient every day for lunch. She states approximately 4 weeks ago patient just stopped eating and after that patient required to be fed, mainly ensure and magic cup, sometimes pudding and jello. She also states that patient coughs when he eats. She was called by correction who stated that when patient was taken back to room after lunch he was found to be sweating profusely with a fever for which they called the ambulance and brought him here. Diagnosis: Stroke: No - Discharge Data Discharge Date: 12/20/18 Discharge Disposition: DC/Tfer to [facility] 64 Condition: Poor - Referral to Home Health Primary Care Physician: PCP Unknown - Patient Summary/Data Consults: Consultations 12/15/18 18:39 Consult to Case Management/Corporate Driver [CONS] Routine Consult to Aromatherapist [CONS] Routine OT Evaluation and Treatment [CONS] Routine PT Evaluation and Treatment [CONS] Routine SENIOR INFORMATICA E[employer] DEVELOPER Evaluation and Treatment [CONS] Routine Hospital Course: Patient was admitted to the hospital and started on D5 normal saline to treat his hypernatremia. Most of his centrally acting and sedating medications were stopped. Patient was stopped off of his fentanyl pain patch. Over the next few days sodium did come down to 145. Discussion with family about long-term care and prognosis was done several times. Patient's advance directives clearly state that he did not want a G-tube. Patient did have some advancement in his diet with speech therapy and nursing. Because it is unlikely he will continue with enough oral intake to keep his sodium down hospice was consult. Family spoke with hospice and decision was made to discharge the patient back to [facility] on comfort care. - Patient Instructions Diet: Pureed Activity: Bedrest - Discharge Plan *PRESCRIPTION DRUG MONITORING PROGRAM REVIEWED*: No *COPY OF PRESCRIPTION DRUG MONITORING REPORT IN PATIENT SHILPI: No Home Medications: Home Meds Aspirin 81 mg PO DAILY 01/11/18 [History] Cholecalciferol (Vitamin D3) [Vitamin D3] 5,000 unit PO DAILY 01/11/18 [History] Lisinopril 10 mg PO DAILY 01/11/18 [History] Metoprolol Succinate 50 mg PO DAILY 01/11/18 [History] Acetaminophen 325 - 650 mg PO Q6HR PRN 12/15/18 [History] Acetaminophen [Tylenol Extra Strength] 500 mg PO TID 12/15/18 [History] Carboxymethyl/Glycerin/Poly80 [Refresh Optive Advanced Drops] 10 ml OP BID 12/15 [History] Finasteride [Proscar] 5 mg PO DAILY 12/15/18 [History] Multivitamin [Poly-Vitamin] 1 each PO DAILY 12/15/18 [History] Sennosides [Senna] 8.6 mg PO DAILY 12/15/18 [History] Tamsulosin [Flomax] 0.4 mg PO DAILY 12/15/18 [History] Acetaminophen [Tylenol] 325 mg PO Q6H PRN ml 12/20/18 [Rx] Lisinopril [Prinivil] 10 mg PO DAILY tablet 12/20/18 [Rx] Oxygen Therapy Mode: Room Air Patient Handouts: Hypernatremia, Sepsis, Adult, Dehydration, Elderly Forms: ED Department Discharge Referrals: Micky Whitaker MD [Physician] - 01/15/19 1:15 pm (please attend the scheduled follow up appointment with your primary care provider) - Discharge Summary/Plan Comment DC Time >30 min.: Yes Discharge Summary/Plan Comment: patient discharged back to [facility] on comfort care. Hospice consultation. - General Info Date of Service: 12/20/18 Admission Dx/Problem (Free Text: Hypernatremia Subjective Update: He continues to be noncommunicative Functional Status: Reports: Other (unable to obtain) - Patient Data Vitals - Most Recent: Last Vital Signs Temp 98.2 F 12/20/18 09:48 Pulse 96 12/20/18 09:50 Resp 16 12/20/18 09:48 BP 134/87 12/20/18 09:51 Pulse Ox 97 12/20/18 09:48 Weight - Most Recent: 138 lb 9.6 oz I&O - Last 24 hours: Intake & Output 12/19/18 12/20/18 12/20/18 22:59 06:59 14:59 Intake Total 210 1077 0 Balance 210 1077 0 [place] Results - Last 24 hrs: Microbiology 12/15/18 15:10 Aerobic Blood Culture - Preliminary Blood - Venous NO GROWTH AFTER 4 DAYS Anaerobic Blood Culture - Preliminary NO GROWTH AFTER 4 DAYS 12/15/18 15:25 Aerobic Blood Culture - Preliminary Blood - Venous - Lab Draw NO GROWTH AFTER 4 DAYS Anaerobic Blood Culture - Preliminary NO GROWTH AFTER 4 DAYS Med Orders - Current: Current Medications Acetaminophen (Tylenol) 325 mg PO Q6H PRN PRN Reason: Pain Last Admin: 12/19/18 17:00 Dose: 325 mg Enoxaparin Sodium (Lovenox) 40 mg SUBCUT DAILY [facility] Last Admin: 12/20/18 09:52 Dose: 40 mg Finasteride (Proscar) 5 mg PO DAILY [facility] Last Admin: 12/20/18 09:51 Dose: 5 mg Dextrose/Water (Dextrose 5% In Water) 1,000 mls @ 75 mls/hr IV ASDIRECTED [facility] Last Admin: 12/20/18 04:57 Dose: 75 mls/hr Lisinopril (Prinivil) 10 mg PO DAILY [facility] Last Admin: 12/20/18 09:51 Dose: 10 mg Metoprolol Succinate (Toprol Xl) 50 mg PO DAILY [facility] Last Admin: 12/20/18 09:50 Dose: 50 mg Senna (Senna) 8.6 mg PO DAILY [facility] Last Admin: 12/20/18 09:51 Dose: 8.6 mg Sodium Chloride (Saline Flush) 10 ml FLUSH ASDIRECTED PRN PRN Reason: Keep Vein Open Last Admin: 12/15/18 15:13 Dose: 10 ml Tamsulosin HCl (Flomax) 0.4 mg PO DAILY [facility] Last Admin: 12/20/18 09:51 Dose: 0.4 mg Discontinued Medications Buspirone HCl (Buspar) 10 mg PO BID [facility] Citalopram Hydrobromide (Celexa) 20 mg PO DAILY [facility] Donepezil HCl (Aricept) 10 mg PO DAILY [facility] Fentanyl (Duragesic) 12 mcg TRDERM Q72H [facility] Haloperidol Lactate (Haldol) 1 mg IVPUSH ONETIME PRN PRN Reason: Agitation Hydromorphone HCl (Dilaudid) 0.25 mg IVPUSH Q4HR PRN PRN Reason: Pain Last Admin: 12/17/18 16:00 Dose: 0.25 mg Sodium Chloride (Normal Saline) 1,000 mls @ 999 mls/hr IV BOLUS ONE Stop: 12/15/18 15:57 Last Admin: 12/15/18 15:13 Dose: 999 mls/hr Piperacillin Sod/Tazobactam (Sod 4.5 gm/ Sodium Chloride) 100 mls @ 25 mls/hr IV Q8H [facility] Last Admin: 12/15/18 22:32 Dose: Not Given Levofloxacin/Dextrose 750 mg/ (Premix) 150 mls @ 100 mls/hr IV Q24H [facility] Last Admin: 12/16/18 15:14 Dose: 100 mls/hr Lactated Ringer's (Ringers, Lactated) 1,000 mls @ 999 mls/hr IV .BOLUS ONE Stop: 12/15/18 17:06 Last Admin: 12/15/18 16:14 Dose: 999 mls/hr Piperacillin Sod/Tazobactam (Sod 4.5 gm/ Sodium Chloride) 100 mls @ 200 mls/hr IV ONETIME ONE Stop: 12/15/18 16:44 Last Admin: 12/15/18 16:20 Dose: 200 mls/hr Piperacillin Sod/Tazobactam (Sod 4.5 gm/ Sodium Chloride) 100 mls @ 25 mls/hr IV Q8H [facility] Last Admin: 12/17/18 09:40 Dose: 25 mls/hr Dextrose/Water (Dextrose 5% In Water) 1,000 mls @ 100 mls/hr IV ASDIRECTED [facility] Last Admin: 12/16/18 06:56 Dose: 100 mls/hr Potassium Chloride 10 meq/ (Premix) 100 mls @ 100 mls/hr IV Q1H [facility] Stop: 12/16/18 12:59 Last Admin: 12/16/18 11:59 Dose: Not Given Potassium Chloride 10 meq/ (Premix) 100 mls @ 100 mls/hr IV Q1H [facility] Stop: 12/16/18 14:59 Last Admin: 12/16/18 14:43 Dose: 100 mls/hr Dextrose/Water (Dextrose 5% In Water) 1,000 mls @ 75 mls/hr IV ASDIRECTED [facility] Last Admin: 12/17/18 16:00 Dose: 50 mls/hr Potassium Chloride 10 meq/ (Premix) 100 mls @ 100 mls/hr IV Q1H [facility] Stop: 12/17/18 19:14 Last Admin: 12/17/18 19:12 Dose: 100 mls/hr Potassium Chloride 10 meq/ (Premix) 100 mls @ 100 mls/hr IV Q1H [facility] Stop: 12/18/18 22:59 Last Admin: 12/18/18 22:32 Dose: 100 mls/hr Labetalol HCl (Normodyne) 10 mg IVPUSH ONETIME ONE; Protocol Stop: 12/18/18 04:05 Last Admin: 12/18/18 04:20 Dose: 10 mg Lactulose (Cephulac) 20 gm PO Q6H [facility] Last Admin: 12/18/18 00:00 Dose: 20 gm Lorazepam (Ativan) 0.5 mg PO BID PRN PRN Reason: Anxiety Miscellaneous Information (Remove Patch) 1 ea TRDERM Q72H [facility] Naloxone HCl (Narcan) 1 mg IVPUSH ONETIME ONE Stop: 12/15/18 18:24 Last Admin: 12/15/18 18:52 Dose: 1 mg Potassium Chloride (Klor-Con M20) 20 meq PO BID [facility] Last Admin: 12/17/18 09:39 Dose: 20 meq Potassium Chloride (Klor-Con M20) 40 meq PO BID [facility] Last Admin: 12/20/18 11:43 Dose: Not Given Risperidone (Risperidal) 0.5 mg PO DAILY [facility] Risperidone (Risperidal) 0.25 mg PO DAILY [facility] - Exam Neck: Reports: Supple Lungs: Reports: Clear to Auscultation, Normal Respiratory Effort Cardiovascular: Reports: Regular Rate, Regular Rhythm GI/Abdominal Exam: Normal Bowel Sounds, Soft, Non-Tender, No Distention
== END 2018-12-20 13:25 | DRG 682 ==
LOC: JD.ED 14:35 → JD.MS 18:39
PROVIDERS: ADMIT Internal Medicine; ATTEND Internal Medicine
PROC: 5A09357 Assistance with Respiratory Ventilation, Less than 24 Consecutive Hours, Continuous Positive Airway Pressure (ICD-10-PCS; principal; 2018-12-15)
DX: N17.9 Acute kidney failure, unspecified (principal); R41.82 Altered mental status, unspecified; R50.9 Fever, unspecified; D72.828 Other elevated white blood cell count; R09.02 Hypoxemia; J96.01 Acute respiratory failure with hypoxia; E87.0 Hyperosmolality and hypernatremia; E87.2 Acidosis; Z66 Do not resuscitate; E87.8 Other disorders of electrolyte and fluid balance, not elsewhere classified; E86.9 Volume depletion, unspecified; I48.91 Unspecified atrial fibrillation; F41.9 Anxiety disorder, unspecified; E78.00 Pure hypercholesterolemia, unspecified; I10 Essential (primary) hypertension; H16.209 Unspecified keratoconjunctivitis, unspecified eye; H47.20 Unspecified optic atrophy; H53.2 Diplopia; F32.9 Major depressive disorder, single episode, unspecified; F20.9 Schizophrenia, unspecified; F03.90 Unspecified dementia, unspecified severity, without behavioral disturbance, psychotic disturbance, mood disturbance, and anxiety; H35.30 Unspecified macular degeneration; R13.12 Dysphagia, oropharyngeal phase; F41.1 Generalized anxiety disorder; G89.29 Other chronic pain; E78.5 Hyperlipidemia, unspecified; N40.0 Benign prostatic hyperplasia without lower urinary tract symptoms; Z86.73 Personal history of transient ischemic attack (TIA), and cerebral infarction without residual deficits; Z79.899 Other long term (current) drug therapy; Z79.82 Long term (current) use of aspirin
CPT/HCPCS: 36415; 36600 ×2; 71045; 80053; 81001; 82803; 83605; 83930; 83935; 84300; 85007; 85027; 85610; 86140; 86738; 87040 ×2; 87086; 87804 ×2; 93005; 96361; 96365; 96367; 99284; J1956; J2543; J7030; J7040; J7120; 80048; 83735; 84100; 85025; 87641; 93010; 94660; 94761; 97140-GP; 97161-GP; 97167-GO; 97530-GO; 97530-GP; A9270-GY; J1170; J1650; J2310; J3480; J3490; J7060

== ENCOUNTER 2019-01-20 00:02 | Inpatient (IN) | payer MEDICARE, OTHER ==
--- NOTE | 2019-01-20 00:27 | EDM.PDOC ---
ED HPI GENERAL MEDICAL PROBLEM - General Chief Complaint: General Stated Complaint: [facility] Time Seen by Provider: 01/20/19 00:17 Source of Information: Reports: RN (Eboni) History Limitations: Reports: Physical Impairment - History of Present Illness INITIAL COMMENTS - FREE TEXT/NARRATIVE: Mr. Nash is a pleasant 83-year-old man, a resident of [facility], with a past medical history significant for atrial fibrillation, cerebrovascular disease, a traumatic brain injury, schizophrenia, and dementia who is brought to the ED via EMS with a report of hypoxemia. It is unclear when his hypoxemia was noticed, but EMS found his oxygen saturation to be 87% on room air. His oxygen saturation came up to 91% on 4 L per NC. There is no report of any other recent illnesses, such as a cough or fever, although the snf reported that patient has had a decreased appetite for about a week. The patient's past medical history does not include a prior diagnosis of lung disease. Unfortunately, the patient's neurologic baseline is noncommunicative, therefore the patient is unable to contribute anything to his history. The patient's code status is DNR/DNI. The patient's PCP is Dr. Micky Whitaker. - Related Data Allergies Allergy/AdvReac Type Severity Reaction Status Date / Time No Known Allergies Allergy Verified 01/20/19 00:29 Home Meds: Home Meds Aspirin 81 mg PO DAILY 01/11/18 [History] Cholecalciferol (Vitamin D3) [Vitamin D3] 5,000 unit PO DAILY 01/11/18 [History] Metoprolol Succinate 50 mg PO DAILY 01/11/18 [History] Acetaminophen 325 - 650 mg PO Q6HR PRN 12/15/18 [History] Acetaminophen [Tylenol Extra Strength] 500 mg PO TID 12/15/18 [History] Finasteride [Proscar] 5 mg PO DAILY 12/15/18 [History] Sennosides [Senna] 8.6 mg PO DAILY 12/15/18 [History] Tamsulosin [Flomax] 0.4 mg PO DAILY 12/15/18 [History] Bacitracin [Bacitracin Oint] 1 applic TOP DAILY 01/20/19 [History] Citalopram Hydrobromide [Celexa] 10 mg PO DAILY 01/20/19 [History] risperiDONE [Risperdal] 0.25 mg PO BID 01/20/19 [History] Past Medical History HEENT History: Reports: Macular Degeneration Cardiovascular History: Reports: Afib, High Cholesterol, Hypertension Gastrointestinal History: Reports: GERD, Hiatal Hernia Genitourinary History: Reports: BPH Neurological History: Reports: Head Trauma, Other (See Below) (Cerebrovascular disease. Dementia.) Psychiatric History: Reports: Anxiety, Dementia, Depression, Schizophrenia - Past Surgical History Musculoskeletal Surgical History: Reports: Shoulder Surgery Social & Family History - Family History Family Medical History: Noncontributory - Caffeine Use Caffeine Use: Reports: Coffee Other Caffeine Use: Unknown due to pt being unresponsive. ED ROS GENERAL - Review of Systems Review Of Systems: Unable To Obtain Reason Not Obtained: Patient non-communicative ED EXAM, GENERAL - Physical Exam Exam: See Below Exam Limited By: Physical Impairment (patient does not follow commands) General Appearance: No Apparent Distress, Thin, Other (Awake, staring straight ahead) Eye Exam: Bilateral Eye: Normal Inspection Ears: Normal External Exam Nose: Normal Inspection Throat/Mouth: Normal Inspection, Normal Lips, No Airway Compromise Head: Atraumatic, Normocephalic Neck: Normal Inspection Respiratory/Chest: No Respiratory Distress, Lungs Clear, Normal Breath Sounds, No Accessory Muscle Use Cardiovascular: Normal Peripheral Pulses, No Edema, No Gallop, No JVD, No Murmur , No Rub, Tachycardia, Irregularly Irregular Peripheral Pulses: 4+: Radial (L), Radial (R) GI/Abdominal: Normal Bowel Sounds, Soft, Non-Tender, No Organomegaly, No Distention, No Abnormal Bruit, No Mass (Male) Exam: Deferred Rectal (Males) Exam: Deferred Back Exam: Normal Inspection, Full Range of Motion, NT Neurological: Other (The patient does not follow any commands) Skin Exam: Warm, Dry, Intact, Normal Color, No Rash EKG INTERPRETATION EKG Date: 01/20/19 Time: 00:34 Rhythm: A-Fib Rate (Beats/Min): 124 [place]: LAD-Left [place] Deviation (2 LAFB) P-Wave: Absent QRS: Other (Late transition) ST-T: Normal QT: Prolonged (QTc 509 ms) Comparison: No Change (12/15/2018. Was also in A-fib 01/14/2018.) Course - Vital Signs Last Recorded V/S: Last Vital Signs Temp 36.8 C 01/20/19 00:16 Pulse 131 H 01/20/19 00:16 Resp 22 H 01/20/19 00:16 BP 133/93 H 01/20/19 00:16 Pulse Ox 91 L 01/20/19 00:16 - Orders/Labs/Meds Orders: Active Orders 24 hr Category Date Time Status EKG Documentation Completion [RC] STAT Care 01/20/19 00:23 Active Insert Urinary Catheter [OM.PC] Q24H Care 01/20/19 02:30 Ordered Urinary Catheter Assessment [RC] ASDIRECTED Care 01/20/19 02:29 Active Ang Chest [CT] Stat Exams 01/20/19 01:39 Taken Chest 1V Frontal [CR] Stat Exams 01/20/19 00:23 Taken CULTURE BLOOD [BC] Stat Lab 01/20/19 01:03 Received CULTURE BLOOD [BC] Stat Lab 01/20/19 01:10 Received LACTIC ACID [CHEM] Routine Lab 01/20/19 03:48 Ordered Piperacillin/Tazobactam [Piperacil-Tazobact] 4.5 gm Med 01/20/19 01:31 Active Sodium Chloride 0.9% [Normal Saline] 100 ml IV ONETIME Sodium Chloride 0.9% [Normal Saline] 100 ml Med 01/20/19 01:45 Active IV ASDIRECTED Sodium Chloride 0.9% [Saline Flush] Med 01/20/19 01:45 Active 10 ml FLUSH ONETIME PRN Blood Culture x2 Reflex Set [OM.PC] Stat Oth 01/20/19 00:23 Ordered Medication Orders Piperacillin Sod/Tazobactam (Sod 4.5 gm/ Sodium Chloride) 100 mls @ 25 mls/hr IV ONETIME STA Stop: 01/20/19 05:30 Last Admin: 01/20/19 01:48 Dose: 25 mls/hr Sodium Chloride (Normal Saline) 100 mls @ 80 mls/hr IV ASDIRECTED [facility] Last Admin: 01/20/19 02:20 Dose: 80 mls/hr Sodium Chloride (Saline Flush) 10 ml FLUSH ONETIME PRN PRN Reason: KEEP VEIN OPEN Last Admin: 01/20/19 02:20 Dose: 10 ml Labs: Laboratory Tests 01/20/19 01/20/19 01/20/19 Range/Units 00:38 01:03 01:03 WBC 26.58 H (4.23-9.07) K/mm3 RBC 4.30 L (4.63-6.08) M/mm3 Hgb 13.3 L (13.7-17.5) gm/dl Hct 42.0 (40.1-51.0) % MCV 97.7 H (79.0-92.2) fl MCH 30.9 (25.7-32.2) pg MCHC 31.7 L (32.2-35.5) g/dl RDW Std Deviation 49.3 H (35.1-43.9) fL Plt Count 471 H D (163-337) K/mm3 MPV 10.4 (9.4-12.3) fl Neutrophils % (Manual) 79 H (40-60) % Band Neutrophils % 8 (0-10) % Lymphocytes % (Manual) 5 L (20-40) % Atypical Lymphs % 0 % Monocytes % (Manual) 8 (2-10) % Eosinophils % (Manual) 0 L (0.8-7.0) % Basophils % (Manual) 0 L (0.2-1.2) Hypersegmented Neuts Few Toxic Granulation 2+ moderate Platelet Estimate Increased Plt Morphology Comment Normal Anisocytosis 2+ moderate Macrocytosis 2+ moderate Target Cells 1+ slight Ovalocytes 1+ slight RBC Morph Comment Not Reportable D-Dimer, Quantitative 3.38 H (0.19-0.50) mg/L Puncture Site Rt radial ABG pH 7.49 H (7.35-7.45) ABG pCO2 33.3 L (35.0-45.0) mmHg ABG pO2 59.0 L (80.0-100.0) mmHg ABG HCO3 24.9 (22.0-26.0) meq/L ABG O2 Saturation 92.2 L (96.0-97.0) % ABG Base Excess 2.3 H (-2-2.0) A-a Gradient 157 mmHg O2 Delivery Device Cannula Oxygen Flow Rate 4.0 FiO2 36.00 (21.00-100.00) % Sodium (136-145) mEq/L Potassium (3.5-5.1) mEq/L Chloride (98-107) mEq/L Carbon Dioxide (21-32) mEq/L Anion Gap (5-15) BUN (7-18) mg/dL Creatinine (0.7-1.3) mg/dL Est Cr Clr Drug Dosing Estimated GFR (MDRD) (>60) mL/min BUN/Creatinine Ratio (14-18) Glucose (83-115) mg/dL Lactic Acid (0.4-2.0) mmol/L Calcium (8.5-10.1) mg/dL Magnesium (1.8-2.4) mg/dl Total Bilirubin (0.2-1.0) mg/dL AST (15-37) U/L ALT (16-63) U/L Alkaline Phosphatase (46-116) U/L Troponin I (0.00-0.056) ng/mL NT-Pro-B Natriuret Pep (0-450) pg/mL Total Protein (6.4-8.2) g/dl Albumin (3.4-5.0) g/dl Globulin gm/dL Albumin/Globulin Ratio (1-2) Urine Color (Yellow) Urine Appearance (Clear) Urine pH (5.0-8.0) Ur Specific Gary (1.005-1.030) Urine Protein (Negative) Urine Glucose (UA) (Negative) Urine Ketones (Negative) Urine Occult Blood (Negative) Urine Nitrite (Negative) Urine Bilirubin (Negative) Urine Urobilinogen (0.2-1.0) Ur Leukocyte Esterase (Negative) Urine RBC (0-5) /hpf Urine WBC (0-5) /hpf Ur Transition Epith Cell (0-5) Urine Bacteria (FEW) /hpf Hyaline Casts (0-5) /lpf Broad Casts (0-5) /hpf Urine Mucus (FEW) /hpf 01/20/19 01/20/19 01/20/19 Range/Units 01:03 01:03 01:03 WBC (4.23-9.07) K/mm3 RBC (4.63-6.08) M/mm3 Hgb (13.7-17.5) gm/dl Hct (40.1-51.0) % MCV (79.0-92.2) fl MCH (25.7-32.2) pg MCHC (32.2-35.5) g/dl RDW Std Deviation (35.1-43.9) fL Plt Count (163-337) K/mm3 MPV (9.4-12.3) fl Neutrophils % (Manual) (40-60) % Band Neutrophils % (0-10) % Lymphocytes % (Manual) (20-40) % Atypical Lymphs % % Monocytes % (Manual) (2-10) % Eosinophils % (Manual) (0.8-7.0) % Basophils % (Manual) (0.2-1.2) Hypersegmented Neuts Toxic Granulation Platelet Estimate Plt Morphology Comment Anisocytosis Macrocytosis Target Cells Ovalocytes RBC Morph Comment D-Dimer, Quantitative (0.19-0.50) mg/L Puncture Site ABG pH (7.35-7.45) ABG pCO2 (35.0-45.0) mmHg ABG pO2 (80.0-100.0) mmHg ABG HCO3 (22.0-26.0) meq/L ABG O2 Saturation (96.0-97.0) % ABG Base Excess (-2-2.0) A-a Gradient mmHg O2 Delivery Device Oxygen Flow Rate FiO2 (21.00-100.00) % Sodium 155 H D (136-145) mEq/L Potassium 3.8 (3.5-5.1) mEq/L Chloride 115 H (98-107) mEq/L Carbon Dioxide 27 (21-32) mEq/L Anion Gap 16.8 H (5-15) BUN 38 H (7-18) mg/dL Creatinine 0.9 (0.7-1.3) mg/dL Est Cr Clr Drug Dosing TNP Estimated GFR (MDRD) > 60 (>60) mL/min BUN/Creatinine Ratio 42.2 H (14-18) Glucose 163 H (83-115) mg/dL Lactic Acid 2.5 H* (0.4-2.0) mmol/L Calcium 10.0 (8.5-10.1) mg/dL Magnesium 2.4 (1.8-2.4) mg/dl Total Bilirubin 0.9 (0.2-1.0) mg/dL AST 285 H (15-37) U/L ALT 499 H (16-63) U/L Alkaline Phosphatase 278 H (46-116) U/L Troponin I 0.049 (0.00-0.056) ng/mL NT-Pro-B Natriuret Pep 1830 H (0-450) pg/mL Total Protein 7.9 (6.4-8.2) g/dl Albumin 2.2 L (3.4-5.0) g/dl Globulin 5.7 gm/dL Albumin/Globulin Ratio 0.4 L (1-2) Urine Color (Yellow) Urine Appearance (Clear) Urine pH (5.0-8.0) Ur Specific [place] (1.005-1.030) Urine Protein (Negative) Urine Glucose (UA) (Negative) Urine Ketones (Negative) Urine Occult Blood (Negative) Urine Nitrite (Negative) Urine Bilirubin (Negative) Urine Urobilinogen (0.2-1.0) Ur Leukocyte Esterase (Negative) Urine RBC (0-5) /hpf Urine WBC (0-5) /hpf Ur Transition Epith Cell (0-5) Urine Bacteria (FEW) /hpf Hyaline Casts (0-5) /lpf Broad Casts (0-5) /hpf Urine Mucus (FEW) /hpf 01/20/19 Range/Units 01:20 WBC (4.23-9.07) K/mm3 RBC (4.63-6.08) M/mm3 Hgb (13.7-17.5) gm/dl Hct (40.1-51.0) % MCV (79.0-92.2) fl MCH (25.7-32.2) pg MCHC (32.2-35.5) g/dl RDW Std Deviation (35.1-43.9) fL Plt Count (163-337) K/mm3 MPV (9.4-12.3) fl Neutrophils % (Manual) (40-60) % Band Neutrophils % (0-10) % Lymphocytes % (Manual) (20-40) % Atypical Lymphs % % Monocytes % (Manual) (2-10) % Eosinophils % (Manual) (0.8-7.0) % Basophils % (Manual) (0.2-1.2) Hypersegmented Neuts Toxic Granulation Platelet Estimate Plt Morphology Comment Anisocytosis Macrocytosis Target Cells Ovalocytes RBC Morph Comment D-Dimer, Quantitative (0.19-0.50) mg/L Puncture Site ABG pH (7.35-7.45) ABG pCO2 (35.0-45.0) mmHg ABG pO2 (80.0-100.0) mmHg ABG HCO3 (22.0-26.0) meq/L ABG O2 Saturation (96.0-97.0) % ABG Base Excess (-2-2.0) A-a Gradient mmHg O2 Delivery Device Oxygen Flow Rate FiO2 (21.00-100.00) % Sodium (136-145) mEq/L Potassium (3.5-5.1) mEq/L Chloride (98-107) mEq/L Carbon Dioxide (21-32) mEq/L Anion Gap (5-15) BUN (7-18) mg/dL Creatinine (0.7-1.3) mg/dL Est Cr Clr Drug Dosing Estimated GFR (MDRD) (>60) mL/min BUN/Creatinine Ratio (14-18) Glucose (83-115) mg/dL Lactic Acid (0.4-2.0) mmol/L Calcium (8.5-10.1) mg/dL Magnesium (1.8-2.4) mg/dl Total Bilirubin (0.2-1.0) mg/dL AST (15-37) U/L ALT (16-63) U/L Alkaline Phosphatase (46-116) U/L Troponin I (0.00-0.056) ng/mL NT-Pro-B Natriuret Pep (0-450) pg/mL Total Protein (6.4-8.2) g/dl Albumin (3.4-5.0) g/dl Globulin gm/dL Albumin/Globulin Ratio (1-2) Urine Color Yellow (Yellow) Urine Appearance Clear (Clear) Urine pH 6.0 (5.0-8.0) Ur Specific Gary 1.025 (1.005-1.030) Urine Protein 2+ H (Negative) Urine Glucose (UA) Negative (Negative) Urine Ketones Negative (Negative) Urine Occult Blood 1+ H (Negative) Urine Nitrite Negative (Negative) Urine Bilirubin Negative (Negative) Urine Urobilinogen 1.0 (0.2-1.0) Ur Leukocyte Esterase Negative (Negative) Urine RBC 10-20 H (0-5) /hpf Urine WBC 0-5 (0-5) /hpf Ur Transition Epith Cell 0-5 (0-5) Urine Bacteria Moderate H (FEW) /hpf Hyaline Casts 0-5 (0-5) /lpf Broad Casts 0-5 (0-5) /hpf Urine Mucus Many H (FEW) /hpf Meds: Medications Generic Name Dose Route Start Last Admin Trade Name Freq PRN Reason Stop Dose Admin Piperacillin Sod/Tazobactam 100 mls @ 25 mls/hr 01/20/19 01:31 01/20/19 01:48 Sod 4.5 gm/ Sodium Chloride IV 01/20/19 05:30 25 mls/hr ONETIME STA Administration Sodium Chloride 100 mls @ 80 mls/hr 01/20/19 01:45 01/20/19 02:20 Normal Saline IV 80 mls/hr ASDIRECTED ISATU Administration Sodium Chloride 10 ml 01/20/19 01:45 01/20/19 02:20 Saline Flush FLUSH 10 ml ONETIME PRN Administration KEEP VEIN OPEN Discontinued Medications Generic Name Dose Route Start Last Admin Trade Name Freq PRN Reason Stop Dose Admin Tobramycin 350 mg/ Sodium 100 mls @ 100 mls/hr 01/20/19 01:35 01/20/19 02:27 Chloride IV 01/20/19 01:36 Not Given ONETIME STA Vancomycin HCl 885 mg/ Sodium 250 mls @ 166.667 mls/hr 01/20/19 01:38 03:13 Chloride IV 01/20/19 03:07 166.667 mls/hr ONETIME STA Administration Sodium Chloride 1,000 mls @ 100 mls/hr 01/20/19 01:45 01/20/19 01:47 Normal Saline IV 100 mls/hr ASDIRECTED ISATU Administration Gentamicin Sulfate 400 mg/ 110 mls @ 200 mls/hr 01/20/19 02:24 01/20/19 02:39 Sodium Chloride IV 01/20/19 02:56 200 mls/hr ONETIME STA Administration Sodium Chloride 1,000 mls @ 999 mls/hr 01/20/19 02:35 Normal Saline IV 01/20/19 03:35 ONETIME ONE Iopamidol 100 ml 01/20/19 01:45 01/20/19 02:20 Isovue-370 (76%) IVPUSH 01/20/19 01:46 100 ml ONETIME ONE Administration - Re-Assessments/Exams Free Text/Narrative Re-Assessment/Exam: 01/20/19 00:26 According to Eboni SCHWARZ, who spoke with the patient's nurse at [facility], the patient is at his neurologic baseline = staring into space, essentially unresponsive. The only thing that has changed is his hypoxia. Other than irregularly irregular tachycardia, no abnormalities were found on physical examination. I have ordered a septic workup. 01/20/19 00:50 The patient's ECG confirms that he is in atrial fibrillation with RVR. Portable chest radiograph reviewed. The cardiac silhouette is within normal limits. No pulmonary vascular congestion. No pleural effusions seen on this AP view. There is increased opacity/density to the lower two-thirds of the left lung field, although no distinct anatomic infiltrate is seen. No pneumothorax. Thoracolumbar scoliosis noted. Degenerative changes to both shoulders incidentally noted. Formal read per the Radiologist pending. 01/20/19 01:32 The patient's WBC count has returned elevated at 26.58. I do not have a differential yet, but the elevated WBC count, along with his left lung opacity is convincing for nosocomial pneumonia. The patient will therefore be started on Zosyn, amikacin, and vancomycin (I have already ordered the Zosyn, but I need the patient's weight in order to order the amikacin and vancomycin). 01/20/19 01:40 I am told that the patient weighs 59 kg. It appears that we do not carry amikacin, therefore I have ordered tobramycin instead. The patient's D-dimer has returned substantially elevated at 3.38. I have therefore ordered a CT angiogram of the chest to evaluate for a pulmonary embolus, along with NS at 100 ml/hr. 01/20/19 02:26 Notified by Eboni SCHWARZ that we do not carry IV tobramycin, but we do carry gentamicin. The dosage of gentamicin is the same as that of tobramycin. 01/20/19 02:31 The patient's CBC is remarkable for a WBC count elevated at 26.58, with 8% bandemia. His Hgb is slightly depressed at 13.3, and his platelets are mildly elevated at 471,000. The remainder of his CBC is unremarkable. His CMP is remarkable for a sodium elevated at 155, and a BUN elevated at 38, with a Cr normal at 0.9. His blood glucose is elevated at 163. His anion gap is elevated at 16.8, with a bicarbonate normal at 27. His AST/ALT are elevated at 285/499, and his alkaline phosphatase is mildly elevated at 278. His albumin is slightly depressed at 2.2. The remainder of his CMP is unremarkable. His magnesium is within normal limits at 2.4. His troponin is within normal limits at 0.049. His BNP is elevated at 1830. His lactic acid level is elevated at 2.5. His ABG represents an acute/uncompensated respiratory alkalosis with a concomitant metabolic alkalosis. His urinalysis is remarkable for 1+ occult blood and 10-20 RBCs, leukocyte esterase negative with 0-5 WBCs, and nitrate negative with moderate bacteria. His influenza swab is negative. The patient's elevated BNP indicates that he has underlying CHF, although that is not a previously documented diagnosis. His hypernatremia and elevated BUN indicate that he is both dehydrated AND intravascularly depleted. It is unclear if his tachycardia is due to inadequate rate control of his atrial fibrillation or intravascular depletion (or a PE), however, despite his likely history of CHF , I have ordered a 1 L bolus of NS. His elevated lactic acid level is in the range of hyperlactemia, not lactic acidosis, and, indeed, the patient's bicarbonate is slightly elevated, not depressed, and his ABG confirms alkalemia due to a combined respiratory and metabolic alkalosis, without an acidosis present. Further, the patient is not hypotensive, ergo he is not in septic shock, and while he probably meets diagnostic criteria for sepsis, he does not require vasodepressors. 01/20/19 03:43 CT angiogram of the chest is read by [facility] as: 1. No central or segmental pulmonary embolus. 2. Secretions/debris within the visualized trachea. 3. Possible pulmonary edema versus multifocal pneumonia, possible aspiration pneumonia. Segmental LEFT lower lobe compressive atelectasis versus pneumonia. 4. Pleural parenchymal calcifications LEFT lung consistent with prior asbestos exposure. 5. Small possibly partial loculated LEFT pleural effusion. 6. Small hiatal hernia. Fluid within esophagus to the level of the thoracic inlet. Gastroesophageal reflux. 7. Additional nonemergent CT findings above. As above, the CT angiogram indicates that the patient is suffering from multifocal pneumonia, as he is certainly not in pulmonary edema. His pneumonia may be aspiration in etiology. His current antibiotic regimen is appropriate, however, I will add an MRSA screen by PCR. Hiatal hernia/GERD is not listed on the patient's past medical history - I will add them. I will admit the patient to the medical floor and notify the Hospitalist of his admission in the morning. Departure - Departure Time of Disposition: 03:50 Disposition: Admitted As Inpatient 67 Condition: Fair Clinical Impression: Aspiration pneumonia, Hypernatremia, Intravascular volume depletion, Atrial fibrillation with RVR - Discharge Information *PRESCRIPTION DRUG MONITORING PROGRAM REVIEWED*: Not Applicable *COPY OF PRESCRIPTION DRUG MONITORING REPORT IN PATIENT SHILPI: Not Applicable - My Orders Last 24 Hours: My Active Orders 01/20/19 00:23 EKG Documentation Completion [RC] STAT Chest 1V Frontal [CR] Stat Blood Culture x2 Reflex Set [OM.PC] Stat 01/20/19 01:03 CULTURE BLOOD [BC] Stat 01/20/19 01:10 CULTURE BLOOD [BC] Stat 01/20/19 01:31 Piperacillin/Tazobactam [Piperacil-Tazobact] 4.5 gm Sodium Chloride 0.9% [ Normal Saline] 100 ml IV ONETIME 01/20/19 01:39 Ang Chest [CT] Stat 01/20/19 01:45 Sodium Chloride 0.9% [Normal Saline] 100 ml IV ASDIRECTED Sodium Chloride 0.9% [Saline Flush] 10 ml FLUSH ONETIME PRN 01/20/19 02:29 Urinary Catheter Assessment [RC] ASDIRECTED 01/20/19 02:30 Insert Urinary Catheter [OM.PC] Q24H 01/20/19 03:48 LACTIC ACID [CHEM] Routine - Assessment/Plan Last 24 Hours: My Active Orders 01/20/19 00:23 EKG Documentation Completion [RC] STAT Chest 1V Frontal [CR] Stat Blood Culture x2 Reflex Set [OM.PC] Stat 01/20/19 01:03 CULTURE BLOOD [BC] Stat 01/20/19 01:10 CULTURE BLOOD [BC] Stat 01/20/19 01:31 Piperacillin/Tazobactam [Piperacil-Tazobact] 4.5 gm Sodium Chloride 0.9% [ Normal Saline] 100 ml IV ONETIME 01/20/19 01:39 Ang Chest [CT] Stat 01/20/19 01:45 Sodium Chloride 0.9% [Normal Saline] 100 ml IV ASDIRECTED Sodium Chloride 0.9% [Saline Flush] 10 ml FLUSH ONETIME PRN 01/20/19 02:29 Urinary Catheter Assessment [RC] ASDIRECTED 01/20/19 02:30 Insert Urinary Catheter [OM.PC] Q24H 01/20/19 03:48 LACTIC ACID [CHEM] Routine
[2019-01-20] MEDS ORDERED: Piperacillin/Tazobactam 4.5 GM in Sodium Chloride 0.9% 100 ML IV STA (01:31)
[2019-01-20] MEDS ORDERED: SODIUM CHLORIDE 0.9% IV STA (01:38)
[2019-01-20] MEDS ORDERED: VANCOMYCIN IV STA (01:38)
[2019-01-20] MEDS ORDERED: Sodium Chloride 0.9% 1,000 ML IV SCH (01:45)
[2019-01-20] MEDS ORDERED: Sodium Chloride 0.9% 100 ML IV SCH (01:45)
[2019-01-20] MEDS ORDERED: Iopamidol 755 Mg/ML 100 ML Bottle IVPUSH ONE (01:45)
[2019-01-20] MEDS ORDERED: Sodium Chloride 0.9% 10 ML Syringe FLUSH PRN ×2 (01:45→06:48)
[2019-01-20] MEDS ORDERED: Gentamicin 400 MG in Sodium Chloride 0.9% 100 ML IV STA (02:24)
[2019-01-20] MEDS ORDERED: Sodium Chloride 0.9% 1,000 ML IV ONE ×2 (02:35→06:48)
[2019-01-20] MEDS ORDERED: Ondansetron 4 MG/2 ML SDV IV PRN (08:39)
[2019-01-20] MEDS ORDERED: Bisacodyl 5 MG Tab PO PRN (08:39)
[2019-01-20] MEDS ORDERED: Docusate Sodium 100 MG Cap PO PRN (08:39)
[2019-01-20] MEDS ORDERED: Acetaminophen 325 MG Tab PO PRN (08:39)
--- NOTE | 2019-01-20 08:52 | PCM.HP.2 ---
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 EMS noted that his saturations were 87% on room air. He is placed on 4 L via NC which increased at 91%. [facility] reports the patient has had a decreased appetite for about a week. Patient was hospitalized on 12 15 through 12/20 with altered mental status and significant hypernatremia. At that time patient was also found to have minimal oral intake. Calvin does have a noncommunicative baseline. [facility] reports patient is usually staring into space. In the ED twelve-lead EKG is obtained showing A. fib at 124 beats per minutes with a prolonged QTC. There is no change noted from prior twelve-lead. Temp is 36.8. Respirations 22. Blood pressure 133/93. Pulse ox 91%. Labs obtained showing a very elevated white count at 26.58. Hemoglobin 13.3. Hematocrit 42.0. He is macrocytic. Platelets are very high at 471. Neutrophils are elevated at 79%. There is a percent band neutrophils noted. D- dimer is obtained and is high at 3.38. ABGs obtained in the right radial showing a pH of 7.49. PCO2 33.3. PO2 of 59.0. Bicarbonate 24.9. Oxygen saturation 92.2. At the base excess of 2.3. This is on 4 L via nasal cannula. Sodium is very high at 155. Potassium 3.8. Chloride 1:15. Carbon dioxide 27. Anion gap is high at 16.8. BUN is high at 38. Creatinine 0.9. EGFR greater than 60. Glucose is 163. Lactic acid is high at 2.5. Calcium is 10. Magnesium 2.4. Bilirubin 0.9. AST is 285, ALT 499, alkaline phosphatase 278. Troponin is negative at 0.049. ProBNP is high at 1830. albumin is low at 2.2. UA is negative however 2+ protein, 1+ occult blood, 10-20 RBCs, moderate bacteria, many mucous are noted. He is given a few IV boluses and started on vancomycin, Zosyn, and gentamicin. CTA of the chest is obtained and interpreted by Mahi as "1. No central or segmental pulmonary embolus. 2. Secretions/debris within the visualized trachea. 3. Possible pulmonary edema versus multifocal pneumonia, possible aspiration pneumonia. Segmental left lower lobe compressive atelectasis versus pneumonia. 4. Pleural parenchymal calcifications left lung consistent with prior asbestos exposure. 5. Small possibly partially loculated left pleural effusion. 6. Small hiatal hernia. Fluid within esophagus the level of the thoracic inlet. Gastroesophageal reflux. 7. Additional nonemergent CT findings above." He carries a history of macular degeneration, A. fib, HLD, hypertension, GERD, hiatal hernia, BPH, head trauma, cerebrovascular disease, dementia, anxiety, depression, schizophrenia. He is a DNR. His PCP is Dr. cedeño. He says really admitted to the medical floor for management of his pneumonia, dehydration and hypernatremia. - Related Data Allergies/Adverse Reactions: Allergies Allergy/AdvReac Type Severity Reaction Status Date / Time No Known Allergies Allergy Verified 01/20/19 06:31 Home Medications: Home Meds Acetaminophen 325 - 650 mg PO Q6HR PRN 12/15/18 [History] Citalopram Hydrobromide [Celexa] 10 mg PO DAILY 01/20/19 [History] LORazepam [Ativan] 0.5 mg PO Q6H PRN #10 ml 01/20/19 [Rx] Morphine [Morphine 20 MG/ML Soln] 5 mg PO Q1H PRN #20 ml 01/20/19 [Rx] risperiDONE [Risperdal] 0.25 mg PO BID 01/20/19 [History] Past Medical History HEENT History: Reports: Macular Degeneration Other HEENT History: keratoconjunctivits, bilateral optic atrophy, diplobia Cardiovascular History: Reports: Afib, High Cholesterol, Hypertension Respiratory History: Reports: None Gastrointestinal History: Reports: GERD, Hiatal Hernia Genitourinary History: Reports: BPH 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 Dementia.) Other Neuro History: cerebrovascular disease, TBI Psychiatric History: Reports: Anxiety, Dementia, Depression, Schizophrenia Other Psychiatric History: restlessness, agitiation Endocrine/Metabolic History: Reports: None Hematologic History: Reports: None Immunologic History: Reports: None Oncologic (Cancer) History: Reports: None Dermatologic History: Reports: None - Infectious Disease History Infectious Disease History: Reports: None - Past Surgical History Musculoskeletal Surgical History: Reports: Shoulder Surgery Social & Family History - Family History Family Medical History: Noncontributory - Tobacco Use Smoking Status *Q: Unknown Ever Smoked Tobacco Use Comment: Pt not able to answer RN's questions. Second Hand Smoke Exposure: No - Caffeine Use Caffeine Use: Reports: Coffee Other Caffeine Use: Unknown due to pt being unresponsive. Caffeine Use Comment: Pt not able to answer RN's questions. - Recreational Drug Use Recreational Drug Use: No H&P Review of Systems - Review of Systems: Review Of Systems: Unable To Obtain Reason Not Obtained: Non-communitive, obtunded Exam - Exam Exam: See Below - Vital Signs Vital Signs: Last Vital Signs Temp 97.2 F 01/20/19 08:17 Pulse 109 H 01/20/19 08:17 Resp 20 01/20/19 08:17 BP 135/81 01/20/19 08:17 Pulse Ox 98 01/20/19 08:40 Weight: 128 lb 3.2 oz - Exam Quality Assessment: Supplemental Oxygen, DVT Prophylaxis General: Obtunded. No: Alert, Oriented, Cooperative, Mild Distress, Sedated, Lethargic HEENT: Conjunctiva Clear, EACs Clear, Mucosa Moist & [place], Nares Patent, Posterior Pharynx Clear, PERRLA Neck: Supple, Trachea Midline Lungs: Normal Respiratory Effort, Decreased Breath Sounds Cardiovascular: Irregular Rhythm (Irregular rate ) GI/Abdominal Exam: Normal Bowel Sounds, Soft, Non-Tender, No Distention, No Abnormal Bruit (Male) Exam: Deferred Rectal (Males) Exam: Deferred Extremities: Normal Inspection, Normal Range of Motion, Non-Tender, No Pedal Edema, Normal Capillary Refill Skin: Warm, Dry, Intact - Patient Data Lab Results Last 24 hrs: Laboratory Results - last 24 hr 01/20/19 01/20/19 01/20/19 Range/Units 00:38 01:03 01:03 WBC 26.58 H (4.23-9.07) K/mm3 RBC 4.30 L (4.63-6.08) M/mm3 Hgb 13.3 L (13.7-17.5) gm/dl Hct 42.0 (40.1-51.0) % MCV 97.7 H (79.0-92.2) fl MCH 30.9 (25.7-32.2) pg MCHC 31.7 L (32.2-35.5) g/dl RDW Std Deviation 49.3 H (35.1-43.9) fL Plt Count 471 H D (163-337) K/mm3 MPV 10.4 (9.4-12.3) fl Neutrophils % (Manual) 79 H (40-60) % Band Neutrophils % 8 (0-10) % Lymphocytes % (Manual) 5 L (20-40) % Atypical Lymphs % 0 % Monocytes % (Manual) 8 (2-10) % Eosinophils % (Manual) 0 L (0.8-7.0) % Basophils % (Manual) 0 L (0.2-1.2) Hypersegmented Neuts Few Toxic Granulation 2+ moderate Platelet Estimate Increased Plt Morphology Comment Normal Poikilocytosis Anisocytosis 2+ moderate Macrocytosis 2+ moderate Target Cells 1+ slight Ovalocytes 1+ slight RBC Morph Comment Not Reportable D-Dimer, Quantitative 3.38 H (0.19-0.50) mg/L Puncture Site Rt radial ABG pH 7.49 H (7.35-7.45) ABG pCO2 33.3 L (35.0-45.0) mmHg ABG pO2 59.0 L (80.0-100.0) mmHg ABG HCO3 24.9 (22.0-26.0) meq/L ABG O2 Saturation 92.2 L (96.0-97.0) % ABG Base Excess 2.3 H (-2-2.0) A-a Gradient 157 mmHg O2 Delivery Device Cannula Oxygen Flow Rate 4.0 FiO2 36.00 (21.00-100.00) % Sodium (136-145) mEq/L Potassium (3.5-5.1) mEq/L Chloride (98-107) mEq/L Carbon Dioxide (21-32) mEq/L Anion Gap (5-15) BUN (7-18) mg/dL Creatinine (0.7-1.3) mg/dL Est Cr Clr Drug Dosing Estimated GFR (MDRD) (>60) mL/min BUN/Creatinine Ratio (14-18) Glucose (83-115) mg/dL Lactic Acid (0.4-2.0) mmol/L Calcium (8.5-10.1) mg/dL Magnesium (1.8-2.4) mg/dl Total Bilirubin (0.2-1.0) mg/dL AST (15-37) U/L ALT (16-63) U/L Alkaline Phosphatase (46-116) U/L Troponin I (0.00-0.056) ng/mL C-Reactive Protein (<1.0) mg/dL NT-Pro-B Natriuret Pep (0-450) pg/mL Total Protein (6.4-8.2) g/dl Albumin (3.4-5.0) g/dl Globulin gm/dL Albumin/Globulin Ratio (1-2) Urine Color (Yellow) Urine Appearance (Clear) Urine pH (5.0-8.0) Ur Specific [place] (1.005-1.030) Urine Protein (Negative) Urine Glucose (UA) (Negative) Urine Ketones (Negative) Urine Occult Blood (Negative) Urine Nitrite (Negative) Urine Bilirubin (Negative) Urine Urobilinogen (0.2-1.0) Ur Leukocyte Esterase (Negative) Urine RBC (0-5) /hpf Urine WBC (0-5) /hpf Ur Transition Epith Cell (0-5) Urine Bacteria (FEW) /hpf Hyaline Casts (0-5) /lpf Broad Casts (0-5) /hpf Urine Mucus (FEW) /hpf MRSA (PCR) 01/20/19 01/20/19 01/20/19 Range/Units 01:03 01:03 01:03 WBC (4.23-9.07) K/mm3 RBC (4.63-6.08) M/mm3 Hgb (13.7-17.5) gm/dl Hct (40.1-51.0) % MCV (79.0-92.2) fl MCH (25.7-32.2) pg MCHC (32.2-35.5) g/dl RDW Std Deviation (35.1-43.9) fL Plt Count (163-337) K/mm3 MPV (9.4-12.3) fl Neutrophils % (Manual) (40-60) % Band Neutrophils % (0-10) % Lymphocytes % (Manual) (20-40) % Atypical Lymphs % % Monocytes % (Manual) (2-10) % Eosinophils % (Manual) (0.8-7.0) % Basophils % (Manual) (0.2-1.2) Hypersegmented Neuts Toxic Granulation Platelet Estimate Plt Morphology Comment Poikilocytosis Anisocytosis Macrocytosis Target Cells Ovalocytes RBC Morph Comment D-Dimer, Quantitative (0.19-0.50) mg/L Puncture Site ABG pH (7.35-7.45) ABG pCO2 (35.0-45.0) mmHg ABG pO2 (80.0-100.0) mmHg ABG HCO3 (22.0-26.0) meq/L ABG O2 Saturation (96.0-97.0) % ABG Base Excess (-2-2.0) A-a Gradient mmHg O2 Delivery Device Oxygen Flow Rate FiO2 (21.00-100.00) % Sodium 155 H D (136-145) mEq/L Potassium 3.8 (3.5-5.1) mEq/L Chloride 115 H (98-107) mEq/L Carbon Dioxide 27 (21-32) mEq/L Anion Gap 16.8 H (5-15) BUN 38 H (7-18) mg/dL Creatinine 0.9 (0.7-1.3) mg/dL Est Cr Clr Drug Dosing TNP Estimated GFR (MDRD) > 60 (>60) mL/min BUN/Creatinine Ratio 42.2 H (14-18) Glucose 163 H (83-115) mg/dL Lactic Acid 2.5 H* (0.4-2.0) mmol/L Calcium 10.0 (8.5-10.1) mg/dL Magnesium 2.4 (1.8-2.4) mg/dl Total Bilirubin 0.9 (0.2-1.0) mg/dL AST 285 H (15-37) U/L ALT 499 H (16-63) U/L Alkaline Phosphatase 278 H (46-116) U/L Troponin I 0.049 (0.00-0.056) ng/mL C-Reactive Protein (<1.0) mg/dL NT-Pro-B Natriuret Pep 1830 H (0-450) pg/mL Total Protein 7.9 (6.4-8.2) g/dl Albumin 2.2 L (3.4-5.0) g/dl Globulin 5.7 gm/dL Albumin/Globulin Ratio 0.4 L (1-2) Urine Color (Yellow) Urine Appearance (Clear) Urine pH (5.0-8.0) Ur Specific [place] (1.005-1.030) Urine Protein (Negative) Urine Glucose (UA) (Negative) Urine Ketones (Negative) Urine Occult Blood (Negative) Urine Nitrite (Negative) Urine Bilirubin (Negative) Urine Urobilinogen (0.2-1.0) Ur Leukocyte Esterase (Negative) Urine RBC (0-5) /hpf Urine WBC (0-5) /hpf Ur Transition Epith Cell (0-5) Urine Bacteria (FEW) /hpf Hyaline Casts (0-5) /lpf Broad Casts (0-5) /hpf Urine Mucus (FEW) /hpf MRSA (PCR) 01/20/19 01/20/19 01/20/19 Range/Units 01:20 04:34 04:47 WBC (4.23-9.07) K/mm3 RBC (4.63-6.08) M/mm3 Hgb (13.7-17.5) gm/dl Hct (40.1-51.0) % MCV (79.0-92.2) fl MCH (25.7-32.2) pg MCHC (32.2-35.5) g/dl RDW Std Deviation (35.1-43.9) fL Plt Count (163-337) K/mm3 MPV (9.4-12.3) fl Neutrophils % (Manual) (40-60) % Band Neutrophils % (0-10) % Lymphocytes % (Manual) (20-40) % Atypical Lymphs % % Monocytes % (Manual) (2-10) % Eosinophils % (Manual) (0.8-7.0) % Basophils % (Manual) (0.2-1.2) Hypersegmented Neuts Toxic Granulation Platelet Estimate Plt Morphology Comment Poikilocytosis Anisocytosis Macrocytosis Target Cells Ovalocytes RBC Morph Comment D-Dimer, Quantitative (0.19-0.50) mg/L Puncture Site ABG pH (7.35-7.45) ABG pCO2 (35.0-45.0) mmHg ABG pO2 (80.0-100.0) mmHg ABG HCO3 (22.0-26.0) meq/L ABG O2 Saturation (96.0-97.0) % ABG Base Excess (-2-2.0) A-a Gradient mmHg O2 Delivery Device Oxygen Flow Rate FiO2 (21.00-100.00) % Sodium (136-145) mEq/L Potassium (3.5-5.1) mEq/L Chloride (98-107) mEq/L Carbon Dioxide (21-32) mEq/L Anion Gap (5-15) BUN (7-18) mg/dL Creatinine (0.7-1.3) mg/dL Est Cr Clr Drug Dosing Estimated GFR (MDRD) (>60) mL/min BUN/Creatinine Ratio (14-18) Glucose (83-115) mg/dL Lactic Acid 2.4 H* (0.4-2.0) mmol/L Calcium (8.5-10.1) mg/dL Magnesium (1.8-2.4) mg/dl Total Bilirubin (0.2-1.0) mg/dL AST (15-37) U/L ALT (16-63) U/L Alkaline Phosphatase (46-116) U/L Troponin I (0.00-0.056) ng/mL C-Reactive Protein (<1.0) mg/dL NT-Pro-B Natriuret Pep (0-450) pg/mL Total Protein (6.4-8.2) g/dl Albumin (3.4-5.0) g/dl Globulin gm/dL Albumin/Globulin Ratio (1-2) Urine Color Yellow (Yellow) Urine Appearance Clear (Clear) Urine pH 6.0 (5.0-8.0) Ur Specific [place] 1.025 (1.005-1.030) Urine Protein 2+ H (Negative) Urine Glucose (UA) Negative (Negative) Urine Ketones Negative (Negative) Urine Occult Blood 1+ H (Negative) Urine Nitrite Negative (Negative) Urine Bilirubin Negative (Negative) Urine Urobilinogen 1.0 (0.2-1.0) Ur Leukocyte Esterase Negative (Negative) Urine RBC 10-20 H (0-5) /hpf Urine WBC 0-5 (0-5) /hpf Ur Transition Epith Cell 0-5 (0-5) Urine Bacteria Moderate H (FEW) /hpf Hyaline Casts 0-5 (0-5) /lpf Broad Casts 0-5 (0-5) /hpf Urine Mucus Many H (FEW) /hpf MRSA (PCR) Negative 01/20/19 01/20/19 01/20/19 Range/Units 06:12 06:12 07:28 WBC 26.93 H (4.23-9.07) K/mm3 RBC 4.18 L (4.63-6.08) M/mm3 Hgb 13.1 L (13.7-17.5) gm/dl Hct 41.5 (40.1-51.0) % MCV 99.3 H (79.0-92.2) fl MCH 31.3 (25.7-32.2) pg MCHC 31.6 L (32.2-35.5) g/dl RDW Std Deviation 51.2 H (35.1-43.9) fL Plt Count 432 H (163-337) K/mm3 MPV 10.4 (9.4-12.3) fl Neutrophils % (Manual) 83 H (40-60) % Band Neutrophils % 0 (0-10) % Lymphocytes % (Manual) 14 L (20-40) % Atypical Lymphs % 0 % Monocytes % (Manual) 3 (2-10) % Eosinophils % (Manual) 0 L (0.8-7.0) % Basophils % (Manual) 0 L (0.2-1.2) Hypersegmented Neuts Toxic Granulation Platelet Estimate Adequate Plt Morphology Comment Poikilocytosis 1+ slight Anisocytosis 1+ slight Macrocytosis Target Cells Ovalocytes RBC Morph Comment Gin Inspector D-Dimer, Quantitative (0.19-0.50) mg/L Puncture Site ABG pH (7.35-7.45) ABG pCO2 (35.0-45.0) mmHg ABG pO2 (80.0-100.0) mmHg ABG HCO3 (22.0-26.0) meq/L ABG O2 Saturation (96.0-97.0) % ABG Base Excess (-2-2.0) A-a Gradient mmHg O2 Delivery Device Oxygen Flow Rate FiO2 (21.00-100.00) % Sodium 157 H (136-145) mEq/L Potassium 3.7 (3.5-5.1) mEq/L Chloride 119 H (98-107) mEq/L Carbon Dioxide 27 (21-32) mEq/L Anion Gap 14.7 (5-15) BUN 35 H (7-18) mg/dL Creatinine 1.0 (0.7-1.3) mg/dL Est Cr Clr Drug Dosing 46.84 Estimated GFR (MDRD) > 60 (>60) mL/min BUN/Creatinine Ratio 35.0 H (14-18) Glucose 160 H (83-115) mg/dL Lactic Acid (0.4-2.0) mmol/L Calcium 9.4 (8.5-10.1) mg/dL Magnesium (1.8-2.4) mg/dl Total Bilirubin 1.0 (0.2-1.0) mg/dL AST 219 H (15-37) U/L ALT 437 H (16-63) U/L Alkaline Phosphatase 221 H (46-116) U/L Troponin I (0.00-0.056) ng/mL C-Reactive Protein 20.2 H* (<1.0) mg/dL NT-Pro-B Natriuret Pep (0-450) pg/mL Total Protein 6.5 (6.4-8.2) g/dl Albumin 1.8 L (3.4-5.0) g/dl Globulin 4.7 gm/dL Albumin/Globulin Ratio 0.4 L (1-2) Urine Color (Yellow) Urine Appearance (Clear) Urine pH (5.0-8.0) Ur Specific [place] (1.005-1.030) Urine Protein (Negative) Urine Glucose (UA) (Negative) Urine Ketones (Negative) Urine Occult Blood (Negative) Urine Nitrite (Negative) Urine Bilirubin (Negative) Urine Urobilinogen (0.2-1.0) Ur Leukocyte Esterase (Negative) Urine RBC (0-5) /hpf Urine WBC (0-5) /hpf Ur Transition Epith Cell (0-5) Urine Bacteria (FEW) /hpf Hyaline Casts (0-5) /lpf Broad Casts (0-5) /hpf Urine Mucus (FEW) /hpf MRSA (PCR) 01/20/19 Range/Units 07:28 WBC (4.23-9.07) K/mm3 RBC (4.63-6.08) M/mm3 Hgb (13.7-17.5) gm/dl Hct (40.1-51.0) % MCV (79.0-92.2) fl MCH (25.7-32.2) pg MCHC (32.2-35.5) g/dl RDW Std Deviation (35.1-43.9) fL Plt Count (163-337) K/mm3 MPV (9.4-12.3) fl Neutrophils % (Manual) (40-60) % Band Neutrophils % (0-10) % Lymphocytes % (Manual) (20-40) % Atypical Lymphs % % Monocytes % (Manual) (2-10) % Eosinophils % (Manual) (0.8-7.0) % Basophils % (Manual) (0.2-1.2) Hypersegmented Neuts Toxic Granulation Platelet Estimate Plt Morphology Comment Poikilocytosis Anisocytosis Macrocytosis Target Cells Ovalocytes RBC Morph Comment D-Dimer, Quantitative (0.19-0.50) mg/L Puncture Site ABG pH (7.35-7.45) ABG pCO2 (35.0-45.0) mmHg ABG pO2 (80.0-100.0) mmHg ABG HCO3 (22.0-26.0) meq/L ABG O2 Saturation (96.0-97.0) % ABG Base Excess (-2-2.0) A-a Gradient mmHg O2 Delivery Device Oxygen Flow Rate FiO2 (21.00-100.00) % Sodium (136-145) mEq/L Potassium (3.5-5.1) mEq/L Chloride (98-107) mEq/L Carbon Dioxide (21-32) mEq/L Anion Gap (5-15) BUN (7-18) mg/dL Creatinine (0.7-1.3) mg/dL Est Cr Clr Drug Dosing Estimated GFR (MDRD) (>60) mL/min BUN/Creatinine Ratio (14-18) Glucose (83-115) mg/dL Lactic Acid 3.1 H* (0.4-2.0) mmol/L Calcium (8.5-10.1) mg/dL Magnesium (1.8-2.4) mg/dl Total Bilirubin (0.2-1.0) mg/dL AST (15-37) U/L ALT (16-63) U/L Alkaline Phosphatase (46-116) U/L Troponin I (0.00-0.056) ng/mL C-Reactive Protein (<1.0) mg/dL NT-Pro-B Natriuret Pep (0-450) pg/mL Total Protein (6.4-8.2) g/dl Albumin (3.4-5.0) g/dl Globulin gm/dL Albumin/Globulin Ratio (1-2) Urine Color (Yellow) Urine Appearance (Clear) Urine pH (5.0-8.0) Ur Specific [place] (1.005-1.030) Urine Protein (Negative) Urine Glucose (UA) (Negative) Urine Ketones (Negative) Urine Occult Blood (Negative) Urine Nitrite (Negative) Urine Bilirubin (Negative) Urine Urobilinogen (0.2-1.0) Ur Leukocyte Esterase (Negative) Urine RBC (0-5) /hpf Urine WBC (0-5) /hpf Ur Transition Epith Cell (0-5) Urine Bacteria (FEW) /hpf Hyaline Casts (0-5) /lpf Broad Casts (0-5) /hpf Urine Mucus (FEW) /hpf MRSA (PCR) Result Diagrams: 01/20/19 07:28 01/20/19 06:12 Sid Results Last 24 hrs: Microbiology 01/20/19 00:35 Influenza Type A Antigen Screen - Final Nasopharyngeal Swab NEGATIVE INFLUENZA A VIRUS AG REFERENCE RANGE: NEGATIVE Influenza Type B Antigen Screen - Final NEGATIVE INFLUENZA B VIRUS AG REFERENCE RANGE: NEGATIVE - Problem List (1) Aspiration pneumonia SNOMED Code(s): 660976338 ICD Code: J69.0 - PNEUMONITIS DUE TO INHALATION OF FOOD AND VOMIT Status: Acute Priority: High Current Visit: Yes Qualifiers: Aspiration pneumonia type: unspecified Laterality: left Lung location: lower lobe of lung Qualified Code(s): J69.0 - Pneumonitis due to inhalation of food and vomit (2) Hypernatremia SNOMED Code(s): 556866190 ICD Code: E87.0 - HYPEROSMOLALITY AND HYPERNATREMIA Status: Acute Priority: High Current Visit: Yes (3) Intravascular volume depletion SNOMED Code(s): 35932656 ICD Code: E86.1 - HYPOVOLEMIA Status: Acute Priority: High Current Visit: Yes (4) Altered mental status SNOMED Code(s): 061974370 ICD Code: R41.82 - ALTERED MENTAL STATUS, UNSPECIFIED Status: Chronic Priority: Medium Current Visit: No Qualifiers: Altered mental status type: unspecified Qualified Code(s): R41.82 - Altered mental status, unspecified (5) Atrial fibrillation SNOMED Code(s): 01619070 ICD Code: I48.91 - UNSPECIFIED ATRIAL FIBRILLATION Status: Chronic Priority: Medium Current Visit: No Qualifiers: Atrial fibrillation type: unspecified Qualified Code(s): I48.91 - Unspecified atrial fibrillation (6) Chronic constipation SNOMED Code(s): 306588722 ICD Code: K59.09 - OTHER CONSTIPATION Status: Chronic Priority: Low Current Visit: No (7) Dementia SNOMED Code(s): 64004074 ICD Code: F03.90 - UNSPECIFIED DEMENTIA WITHOUT BEHAVIORAL DISTURBANCE Status: Chronic Priority: Medium Current Visit: No Qualifiers: Dementia type: unspecified type Dementia behavioral disturbance: without behavioral disturbance Qualified Code(s): F03.90 - Unspecified dementia without behavioral disturbance (8) Dyslipidemia SNOMED Code(s): 195635339 ICD Code: E78.5 - HYPERLIPIDEMIA, UNSPECIFIED Status: Chronic Priority: Low Current Visit: No (9) ANDREW (generalized anxiety disorder) SNOMED Code(s): 81446078 ICD Code: F41.1 - GENERALIZED ANXIETY DISORDER Status: Chronic Priority: Low Current Visit: No (10) Hypertension SNOMED Code(s): 87511654 ICD Code: I10 - ESSENTIAL (PRIMARY) HYPERTENSION Status: Chronic Priority : Low Current Visit: No Qualifiers: Hypertension type: unspecified Qualified Code(s): I10 - Essential (primary ) hypertension (11) Lactic acidosis SNOMED Code(s): 76312728 ICD Code: E87.2 - ACIDOSIS Status: Acute Priority: High Current Visit: Yes (12) Leukocytosis SNOMED Code(s): 294293587, 378782622 ICD Code: D72.829 - ELEVATED WHITE BLOOD CELL COUNT, UNSPECIFIED Status: Acute Priority: High Current Visit: Yes Qualifiers: Leukocytosis type: other Qualified Code(s): D72.828 - Other elevated white blood cell count (13) [facility] resident SNOMED Code(s): 854564840 ICD Code: Z59.3 - PROBLEMS RELATED TO LIVING IN RESIDENTIAL INSTITUTION Status: Chronic Priority: Low Current Visit: No (14) Schizophrenia SNOMED Code(s): 92243257 ICD Code: F20.9 - SCHIZOPHRENIA, UNSPECIFIED Status: Chronic Priority: Low Current Visit: No Qualifiers: Schizophrenia type: unspecified Qualified Code(s): F20.9 - Schizophrenia, unspecified (15) Need for comfort care SNOMED Code(s): 844015340, 901652700 ICD Code: [id number] - Status: Acute Priority: High Current Visit: Yes Problem List Initiated/Reviewed/Updated: Yes Orders Last 24hrs: Active Orders 24 hr Category Date Time Status Admission Status [Patient Status] [ADT] Routine ADT 01/20/19 04:04 Active Bedrest [RC] ASDIRECTED Care 01/20/19 05:29 Active Cardiac Monitoring [RC] CONTINUOUS Care 01/20/19 08:40 Active Height and Weight [RC] DAILY Care 01/20/19 08:39 Active Insert Urinary Catheter [OM.PC] Q24H Care 01/20/19 02:30 Ordered Intake and Output [RC] QSHIFT Care 01/20/19 08:40 Active Oxygen Therapy [RC] ASDIRECTED Care 01/20/19 05:32 Active RT Aerosol Therapy [RC] ASDIRECTED Care 01/20/19 08:41 Active Up to Chair [RC] ASDIRECTED Care 01/20/19 08:39 Active Urinary Catheter Assessment [RC] ASDIRECTED Care 01/20/19 02:29 Active VTE/DVT Education [RC] PER UNIT ROUTINE Care 01/20/19 08:39 Active Vital Signs [RC] Q4H Care 01/20/19 08:39 Active Consult to Case Management/Stereoplotter Operator [CONS] Cons 01/20/19 08:39 Active Routine Consult to Spiritual Care [CONS] Routine Cons 01/20/19 08:39 Active Respiratory Care Assess and Treatment [CONS] Routine Cons 01/20/19 08:39 Active Pureed Diet [DIET] Diet 01/20/19 Breakfast Active Ang Chest [CT] Stat Exams 01/20/19 01:39 Taken Chest 1V Frontal [CR] Stat Exams 01/20/19 00:23 Taken Chest 2V [CR] Stat Exams 01/20/19 06:48 Ordered BASIC METABOLIC PANEL,BMP [CHEM] AM Lab 01/21/19 05:11 Ordered BASIC METABOLIC PANEL,BMP [CHEM] AM Lab 01/22/19 05:11 Ordered BASIC METABOLIC PANEL,BMP [CHEM] AM Lab 01/23/19 05:11 Ordered BASIC METABOLIC PANEL,BMP [CHEM] AM Lab 01/24/19 05:11 Ordered CBC WITH AUTO DIFF [HEME] AM Lab 01/21/19 05:11 Ordered CBC WITH AUTO DIFF [HEME] AM Lab 01/22/19 05:11 Ordered CBC WITH AUTO DIFF [HEME] AM Lab 01/23/19 05:11 Ordered CBC WITH AUTO DIFF [HEME] AM Lab 01/24/19 05:11 Ordered CRP [C-REACTIVE PROTEIN] [CHEM] AM Lab 01/21/19 05:11 Ordered CRP [C-REACTIVE PROTEIN] [CHEM] AM Lab 01/22/19 05:11 Ordered CRP [C-REACTIVE PROTEIN] [CHEM] AM Lab 01/23/19 05:11 Ordered CRP [C-REACTIVE PROTEIN] [CHEM] AM Lab 01/24/19 05:11 Ordered CULTURE BLOOD [BC] Stat Lab 01/20/19 01:03 Received CULTURE BLOOD [BC] Stat Lab 01/20/19 01:10 Received INR,PT,PROTHROMBIN TIME [COAG] Stat Lab 01/20/19 07:28 Received LEGIONELLA ANTIGEN [MREF] Routine Lab 01/20/19 08:38 Ordered MAGNESIUM [CHEM] AM Lab 01/21/19 05:11 Ordered MAGNESIUM [CHEM] AM Lab 01/22/19 05:11 Ordered MAGNESIUM [CHEM] AM Lab 01/23/19 05:11 Ordered MAGNESIUM [CHEM] AM Lab 01/24/19 05:11 Ordered METH-RESIST S.AUR,MRSA BY PCR [MOLEC] Routine Lab 01/20/19 08:35 Ordered MYCOPLASMA PNEUMONIAE IGM AB [CHEM] Routine Lab 01/20/19 01:03 Received REFLEX LACTIC ACID YES OR NO [CHEM] Routine Lab 01/20/19 08:04 Received STREP PNEUMONIAE ANTIGEN [MREF] Routine Lab 01/20/19 08:36 Ordered UA W/SID RFLX IF INDICATED [URIN] Stat Lab 01/20/19 06:48 Ordered Acetaminophen Med 01/20/19 09:00 Ordered 650 mg PO TID Acetaminophen [Tylenol] Med 01/20/19 08:39 Active 650 mg PO Q4H PRN Albuterol/Ipratropium [DuoNeb 3.0-0.5 MG/3 ML] Med 01/20/19 09:00 Active 3 ml NEB Q4H Aspirin [Halfprin] Med 01/20/19 09:00 Active 81 mg PO DAILY Bacitracin [Bacitracin Oint] Med 01/20/19 09:00 Ordered DOSE gm TOP DAILY Bisacodyl [Dulcolax] Med 01/20/19 08:39 Ordered 5 mg PO DAILY PRN Carboxymethylcellulos/Glycerin [Refresh Optive Gel Eye Med 01/20/19 09:00 Ordered Drops] 1 drop EYEBOTH BID Cholecalciferol (Vitamin D3) [Vitamin D3] Med 01/20/19 09:00 Ordered 5,000 unit PO DAILY Citalopram [Celexa] Med 01/20/19 09:00 Ordered 10 mg PO DAILY Docusate Sodium [Colace] Med 01/20/19 08:39 Ordered 100 mg PO BID PRN Finasteride [Proscar] Med 01/20/19 09:00 Ordered 5 mg PO DAILY Lisinopril [Prinivil] Med 01/20/19 09:00 Ordered 10 mg PO DAILY Metoprolol Succinate [Toprol XL] Med 01/20/19 09:00 Ordered 50 mg PO DAILY Multivitamin [Children's Chewable Vitamin] Med 01/20/19 09:00 Ordered 1 tab PO DAILY Ondansetron [Zofran] Med 01/20/19 08:39 Active 4 mg IV Q6H PRN Pharmacy to Dose - Vancomycin Med 01/20/19 08:45 Ordered 1 dose .XX ASDIRECTED Piperacillin/Tazobactam [Piperacil-Tazobact] 4.5 gm Med 01/20/19 09:30 Active Sodium Chloride 0.9% [Normal Saline] 100 ml IV Q8H Sennosides [Senna] Med 01/20/19 09:00 Ordered 8.6 mg PO DAILY Sodium Chloride 0.9% [Normal Saline] 100 ml Med 01/20/19 01:45 Active IV ASDIRECTED Sodium Chloride 0.9% [Saline Flush] Med 01/20/19 06:48 Active 10 ml FLUSH ASDIRECTED PRN Sodium Chloride 0.9% [Saline Flush] Med 01/20/19 01:45 Active 10 ml FLUSH ONETIME PRN Tamsulosin [Flomax] Med 01/20/19 09:00 Ordered 0.4 mg PO DAILY risperiDONE [RisperiDAL] Med 01/20/19 09:00 Ordered 0.25 mg PO BID Blood Culture x2 Reflex Set [OM.PC] Stat Oth 01/20/19 00:23 Ordered Blood Culture x2 Reflex Set [OM.PC] Stat Ot 01/20/19 06:48 Ordered Precautions [COMM] Routine Oth 01/20/19 08:36 Ordered Saline Lock Insert [OM.PC] Stat Ot 01/20/19 06:48 Ordered Severe Sepsis Onset Time [OM.PC] Stat Ot 01/20/19 06:48 Ordered Code Status [Resuscitation Status] Routine Resus Stat 01/20/19 05:24 Ordered Medication Orders Acetaminophen (Tylenol) 650 mg PO Q4H PRN PRN Reason: Pain (Mild 1-3)/fever Albuterol/Ipratropium (Duoneb 3.0-0.5 Mg/3 Ml) 3 ml NEB Q4H [facility] Aspirin (Halfprin) 81 mg PO DAILY [facility] Bacitracin (Bacitracin Oint) gm TOP DAILY [facility] Bisacodyl (Dulcolax) 5 mg PO DAILY PRN PRN Reason: Constipation Cholecalciferol (Vitamin D3) 5,000 unit PO DAILY [facility] Citalopram Hydrobromide (Celexa) 10 mg PO DAILY [facility] Docusate Sodium (Colace) 100 mg PO BID PRN PRN Reason: Constipation Finasteride (Proscar) 5 mg PO DAILY [facility] Sodium Chloride (Normal Saline) 100 mls @ 80 mls/hr IV ASDIRECTED [facility] Last Admin: 01/20/19 02:20 Dose: 80 mls/hr Piperacillin Sod/Tazobactam (Sod 4.5 gm/ Sodium Chloride) 100 mls @ 25 mls/hr IV Q8H [facility] Lisinopril (Prinivil) 10 mg PO DAILY [facility] Metoprolol Succinate (Toprol Xl) 50 mg PO DAILY [facility] Non-Formulary Medication (Acetaminophen) 650 mg PO TID [facility] Non-Formulary Medication (Carboxymethylcellulos/Glycerin [Refresh Optive Gel Eye Drops]) 1 drop EYEBOTH BID [facility] Non-Formulary Medication (Multivitamin [Children's Chewable Vitamin]) 1 tab PO DAILY [facility] Ondansetron HCl (Zofran) 4 mg IV Q6H PRN PRN Reason: Nausea/Vomiting Risperidone (Risperidal) 0.25 mg PO BID [facility] Senna (Senna) 8.6 mg PO DAILY [facility] Sodium Chloride (Saline Flush) 10 ml FLUSH ONETIME PRN PRN Reason: KEEP VEIN OPEN Last Admin: 01/20/19 02:20 Dose: 10 ml Sodium Chloride (Saline Flush) 10 ml FLUSH ASDIRECTED PRN PRN Reason: Keep Vein Open Tamsulosin HCl (Flomax) 0.4 mg PO DAILY [facility] Vancomycin HCl (Pharmacy To Dose - Vancomycin) 1 dose .XX ASDIRECTED [facility] Assessment/Plan Comment:: I/P: Acute Aspiration PNA/Sepsis -History of dysphagia, History of traumatic brain injury -WBC 26.58 -Tachycardia -Lactic Acid 2.5-->2.4-->3.1-->4.7 -Trend lactic acid per protocol -CRP 20.2 -CXR: Left-sided pleural effusion with mild left basilar parietal density, cardiomegaly, otherwise no findings -CTA: * 1. No central or segmental pulmonary embolus * 2. Secretions/debris within the visualized trachea * 3. Possible pulmonary edema versus multifocal pneumonia, possible aspiration pneumonia. Segmental left lower lobe compressive atelectasis versus pneumonia. * 4. Pleural parenchymal calcifications left lung consistent with prior asbestos exposure * 5. Small possibly partial loculated left pleural effusion. * 6. Small hiatal hernia. Fluid within the esophagus the level thoracic inlet. Gastroesophageal reflux. * 7. Additional nonemergent CT findings above. -Started on gentamicin, vancomycin, and Zosyn in the ED -Multiple fluid boluses given in the ED Elevated BNP -Pro-BNP 1830 -Caution with fluid re-hydration Transaminitis -AST 285 -ALT 499 -Alk Phos 278 -Review home medication list Elevate D-dimmer -D-dimmer 3.38 -CTA negative as above Hypernatremia -Sodium 155 -Has had poor oral intake per SNF staff -Was 167 on 12/15/18 -D5W as ordered Chronic: macular degeneration A. fib HLD hypertension GERD hiatal hernia BPH head trauma cerebrovascular disease dementia anxiety depression schizophrenia Plan: Admit to medical floor on telemetry Home medications as ordered Routine AM labs Other orders as indicated above No need for PT/OT at this time CM/SW for discharge planning -> resided at [facility] [place] Code status: DNR; PCP: Dr. Whitaker - Mortality Measure Prognosis:: Poor <Chiara Sumner III - Last Filed: 01/20/19 17:42> H&P History of Present Illness - General Admit Problem/Dx: Admission Diagnosis/Problem Admission Diagnosis/Problem Aspiration pneumonia Exam - Vital Signs Vital Signs: Last Vital Signs Temp 98.1 F 01/20/19 12:25 Pulse 107 H 01/20/19 12:25 Resp 20 01/20/19 12:25 BP 116/66 01/20/19 12:25 Pulse Ox 92 L 01/20/19 13:04 - Patient Data Lab Results Last 24 hrs: Laboratory Results - last 24 hr 01/20/19 01/20/19 01/20/19 Range/Units 00:38 01:03 01:03 WBC 26.58 H (4.23-9.07) K/mm3 RBC 4.30 L (4.63-6.08) M/mm3 Hgb 13.3 L (13.7-17.5) gm/dl Hct 42.0 (40.1-51.0) % MCV 97.7 H (79.0-92.2) fl MCH 30.9 (25.7-32.2) pg MCHC 31.7 L (32.2-35.5) g/dl RDW Std Deviation 49.3 H (35.1-43.9) fL Plt Count 471 H D (163-337) K/mm3 MPV 10.4 (9.4-12.3) fl Neutrophils % (Manual) 79 H (40-60) % Band Neutrophils % 8 (0-10) % Lymphocytes % (Manual) 5 L (20-40) % Atypical Lymphs % 0 % Monocytes % (Manual) 8 (2-10) % Eosinophils % (Manual) 0 L (0.8-7.0) % Basophils % (Manual) 0 L (0.2-1.2) Hypersegmented Neuts Few Toxic Granulation 2+ moderate Platelet Estimate Increased Plt Morphology Comment Normal Poikilocytosis Anisocytosis 2+ moderate Macrocytosis 2+ moderate Target Cells 1+ slight Ovalocytes 1+ slight RBC Morph Comment Not Reportable PT (9.7-12.0) SECONDS INR D-Dimer, Quantitative 3.38 H (0.19-0.50) mg/L Puncture Site Rt radial ABG pH 7.49 H (7.35-7.45) ABG pCO2 33.3 L (35.0-45.0) mmHg ABG pO2 59.0 L (80.0-100.0) mmHg ABG HCO3 24.9 (22.0-26.0) meq/L ABG O2 Saturation 92.2 L (96.0-97.0) % ABG Base Excess 2.3 H (-2-2.0) A-a Gradient 157 mmHg O2 Delivery Device Cannula Oxygen Flow Rate 4.0 FiO2 36.00 (21.00-100.00) % Sodium (136-145) mEq/L Potassium (3.5-5.1) mEq/L Chloride (98-107) mEq/L Carbon Dioxide (21-32) mEq/L Anion Gap (5-15) BUN (7-18) mg/dL Creatinine (0.7-1.3) mg/dL Est Cr Clr Drug Dosing Estimated GFR (MDRD) (>60) mL/min BUN/Creatinine Ratio (14-18) Glucose (83-115) mg/dL Lactic Acid (0.4-2.0) mmol/L Calcium (8.5-10.1) mg/dL Magnesium (1.8-2.4) mg/dl Total Bilirubin (0.2-1.0) mg/dL AST (15-37) U/L ALT (16-63) U/L Alkaline Phosphatase (46-116) U/L Troponin I (0.00-0.056) ng/mL C-Reactive Protein (<1.0) mg/dL NT-Pro-B Natriuret Pep (0-450) pg/mL Total Protein (6.4-8.2) g/dl Albumin (3.4-5.0) g/dl Globulin gm/dL Albumin/Globulin Ratio (1-2) Urine Color (Yellow) Urine Appearance (Clear) Urine pH (5.0-8.0) Ur Specific Br[place]comb (1.005-1.030) Urine Protein (Negative) Urine Glucose (UA) (Negative) Urine Ketones (Negative) Urine Occult Blood (Negative) Urine Nitrite (Negative) Urine Bilirubin (Negative) Urine Urobilinogen (0.2-1.0) Ur Leukocyte Esterase (Negative) Urine RBC (0-5) /hpf Urine WBC (0-5) /hpf Ur Transition Epith Cell (0-5) Urine Bacteria (FEW) /hpf Hyaline Casts (0-5) /lpf Broad Casts (0-5) /hpf Urine Mucus (FEW) /hpf Mycoplasma pneumon IgM (NEGATIVE) MRSA (PCR) 01/20/19 01/20/19 01/20/19 Range/Units 01:03 01:03 01:03 WBC (4.23-9.07) K/mm3 RBC (4.63-6.08) M/mm3 Hgb (13.7-17.5) gm/dl Hct (40.1-51.0) % MCV (79.0-92.2) fl MCH (25.7-32.2) pg MCHC (32.2-35.5) g/dl RDW Std Deviation (35.1-43.9) fL Plt Count (163-337) K/mm3 MPV (9.4-12.3) fl Neutrophils % (Manual) (40-60) % Band Neutrophils % (0-10) % Lymphocytes % (Manual) (20-40) % Atypical Lymphs % % Monocytes % (Manual) (2-10) % Eosinophils % (Manual) (0.8-7.0) % Basophils % (Manual) (0.2-1.2) Hypersegmented Neuts Toxic Granulation Platelet Estimate Plt Morphology Comment Poikilocytosis Anisocytosis Macrocytosis Target Cells Ovalocytes RBC Morph Comment PT (9.7-12.0) SECONDS INR D-Dimer, Quantitative (0.19-0.50) mg/L Puncture Site ABG pH (7.35-7.45) ABG pCO2 (35.0-45.0) mmHg ABG pO2 (80.0-100.0) mmHg ABG HCO3 (22.0-26.0) meq/L ABG O2 Saturation (96.0-97.0) % ABG Base Excess (-2-2.0) A-a Gradient mmHg O2 Delivery Device Oxygen Flow Rate FiO2 (21.00-100.00) % Sodium 155 H D (136-145) mEq/L Potassium 3.8 (3.5-5.1) mEq/L Chloride 115 H (98-107) mEq/L Carbon Dioxide 27 (21-32) mEq/L Anion Gap 16.8 H (5-15) BUN 38 H (7-18) mg/dL Creatinine 0.9 (0.7-1.3) mg/dL Est Cr Clr Drug Dosing TNP Estimated GFR (MDRD) > 60 (>60) mL/min BUN/Creatinine Ratio 42.2 H (14-18) Glucose 163 H (83-115) mg/dL Lactic Acid 2.5 H* (0.4-2.0) mmol/L Calcium 10.0 (8.5-10.1) mg/dL Magnesium 2.4 (1.8-2.4) mg/dl Total Bilirubin 0.9 (0.2-1.0) mg/dL AST 285 H (15-37) U/L ALT 499 H (16-63) U/L Alkaline Phosphatase 278 H (46-116) U/L Troponin I 0.049 (0.00-0.056) ng/mL C-Reactive Protein (<1.0) mg/dL NT-Pro-B Natriuret Pep 1830 H (0-450) pg/mL Total Protein 7.9 (6.4-8.2) g/dl Albumin 2.2 L (3.4-5.0) g/dl Globulin 5.7 gm/dL Albumin/Globulin Ratio 0.4 L (1-2) Urine Color (Yellow) Urine Appearance (Clear) Urine pH (5.0-8.0) Ur Specific Branscomb (1.005-1.030) Urine Protein (Negative) Urine Glucose (UA) (Negative) Urine Ketones (Negative) Urine Occult Blood (Negative) Urine Nitrite (Negative) Urine Bilirubin (Negative) Urine Urobilinogen (0.2-1.0) Ur Leukocyte Esterase (Negative) Urine RBC (0-5) /hpf Urine WBC (0-5) /hpf Ur Transition Epith Cell (0-5) Urine Bacteria (FEW) /hpf Hyaline Casts (0-5) /lpf Broad Casts (0-5) /hpf Urine Mucus (FEW) /hpf Mycoplasma pneumon IgM (NEGATIVE) MRSA (PCR) 01/20/19 01/20/19 01/20/19 Range/Units 01:03 01:20 04:34 WBC (4.23-9.07) K/mm3 RBC (4.63-6.08) M/mm3 Hgb (13.7-17.5) gm/dl Hct (40.1-51.0) % MCV (79.0-92.2) fl MCH (25.7-32.2) pg MCHC (32.2-35.5) g/dl RDW Std Deviation (35.1-43.9) fL Plt Count (163-337) K/mm3 MPV (9.4-12.3) fl Neutrophils % (Manual) (40-60) % Band Neutrophils % (0-10) % Lymphocytes % (Manual) (20-40) % Atypical Lymphs % % Monocytes % (Manual) (2-10) % Eosinophils % (Manual) (0.8-7.0) % Basophils % (Manual) (0.2-1.2) Hypersegmented Neuts Toxic Granulation Platelet Estimate Plt Morphology Comment Poikilocytosis Anisocytosis Macrocytosis Target Cells Ovalocytes RBC Morph Comment PT (9.7-12.0) SECONDS INR D-Dimer, Quantitative (0.19-0.50) mg/L Puncture Site ABG pH (7.35-7.45) ABG pCO2 (35.0-45.0) mmHg ABG pO2 (80.0-100.0) mmHg ABG HCO3 (22.0-26.0) meq/L ABG O2 Saturation (96.0-97.0) % ABG Base Excess (-2-2.0) A-a Gradient mmHg O2 Delivery Device Oxygen Flow Rate FiO2 (21.00-100.00) % Sodium (136-145) mEq/L Potassium (3.5-5.1) mEq/L Chloride (98-107) mEq/L Carbon Dioxide (21-32) mEq/L Anion Gap (5-15) BUN (7-18) mg/dL Creatinine (0.7-1.3) mg/dL Est Cr Clr Drug Dosing Estimated GFR (MDRD) (>60) mL/min BUN/Creatinine Ratio (14-18) Glucose (83-115) mg/dL Lactic Acid 2.4 H* (0.4-2.0) mmol/L Calcium (8.5-10.1) mg/dL Magnesium (1.8-2.4) mg/dl Total Bilirubin (0.2-1.0) mg/dL AST (15-37) U/L ALT (16-63) U/L Alkaline Phosphatase (46-116) U/L Troponin I (0.00-0.056) ng/mL C-Reactive Protein (<1.0) mg/dL NT-Pro-B Natriuret Pep (0-450) pg/mL Total Protein (6.4-8.2) g/dl Albumin (3.4-5.0) g/dl Globulin gm/dL Albumin/Globulin Ratio (1-2) Urine Color Yellow (Yellow) Urine Appearance Clear (Clear) Urine pH 6.0 (5.0-8.0) Ur Specific Branscomb 1.025 (1.005-1.030) Urine Protein 2+ H (Negative) Urine Glucose (UA) Negative (Negative) Urine Ketones Negative (Negative) Urine Occult Blood 1+ H (Negative) Urine Nitrite Negative (Negative) Urine Bilirubin Negative (Negative) Urine Urobilinogen 1.0 (0.2-1.0) Ur Leukocyte Esterase Negative (Negative) Urine RBC 10-20 H (0-5) /hpf Urine WBC 0-5 (0-5) /hpf Ur Transition Epith Cell 0-5 (0-5) Urine Bacteria Moderate H (FEW) /hpf Hyaline Casts 0-5 (0-5) /lpf Broad Casts 0-5 (0-5) /hpf Urine Mucus Many H (FEW) /hpf Mycoplasma pneumon IgM Negative (NEGATIVE) MRSA (PCR) 01/20/19 01/20/19 01/20/19 Range/Units 04:47 06:12 06:12 WBC (4.23-9.07) K/mm3 RBC (4.63-6.08) M/mm3 Hgb (13.7-17.5) gm/dl Hct (40.1-51.0) % MCV (79.0-92.2) fl MCH (25.7-32.2) pg MCHC (32.2-35.5) g/dl RDW Std Deviation (35.1-43.9) fL Plt Count (163-337) K/mm3 MPV (9.4-12.3) fl Neutrophils % (Manual) (40-60) % Band Neutrophils % (0-10) % Lymphocytes % (Manual) (20-40) % Atypical Lymphs % % Monocytes % (Manual) (2-10) % Eosinophils % (Manual) (0.8-7.0) % Basophils % (Manual) (0.2-1.2) Hypersegmented Neuts Toxic Granulation Platelet Estimate Plt Morphology Comment Poikilocytosis Anisocytosis Macrocytosis Target Cells Ovalocytes RBC Morph Comment PT (9.7-12.0) SECONDS INR D-Dimer, Quantitative (0.19-0.50) mg/L Puncture Site ABG pH (7.35-7.45) ABG pCO2 (35.0-45.0) mmHg ABG pO2 (80.0-100.0) mmHg ABG HCO3 (22.0-26.0) meq/L ABG O2 Saturation (96.0-97.0) % ABG Base Excess (-2-2.0) A-a Gradient mmHg O2 Delivery Device Oxygen Flow Rate FiO2 (21.00-100.00) % Sodium 157 H (136-145) mEq/L Potassium 3.7 (3.5-5.1) mEq/L Chloride 119 H (98-107) mEq/L Carbon Dioxide 27 (21-32) mEq/L Anion Gap 14.7 (5-15) BUN 35 H (7-18) mg/dL Creatinine 1.0 (0.7-1.3) mg/dL Est Cr Clr Drug Dosing 46.84 Estimated GFR (MDRD) > 60 (>60) mL/min BUN/Creatinine Ratio 35.0 H (14-18) Glucose 160 H (83-115) mg/dL Lactic Acid (0.4-2.0) mmol/L Calcium 9.4 (8.5-10.1) mg/dL Magnesium (1.8-2.4) mg/dl Total Bilirubin 1.0 (0.2-1.0) mg/dL AST 219 H (15-37) U/L ALT 437 H (16-63) U/L Alkaline Phosphatase 221 H (46-116) U/L Troponin I (0.00-0.056) ng/mL C-Reactive Protein 20.2 H* (<1.0) mg/dL NT-Pro-B Natriuret Pep (0-450) pg/mL Total Protein 6.5 (6.4-8.2) g/dl Albumin 1.8 L (3.4-5.0) g/dl Globulin 4.7 gm/dL Albumin/Globulin Ratio 0.4 L (1-2) Urine Color (Yellow) Urine Appearance (Clear) Urine pH (5.0-8.0) Ur Specific Branscomb (1.005-1.030) Urine Protein (Negative) Urine Glucose (UA) (Negative) Urine Ketones (Negative) Urine Occult Blood (Negative) Urine Nitrite (Negative) Urine Bilirubin (Negative) Urine Urobilinogen (0.2-1.0) Ur Leukocyte Esterase (Negative) Urine RBC (0-5) /hpf Urine WBC (0-5) /hpf Ur Transition Epith Cell (0-5) Urine Bacteria (FEW) /hpf Hyaline Casts (0-5) /lpf Broad Casts (0-5) /hpf Urine Mucus (FEW) /hpf Mycoplasma pneumon IgM (NEGATIVE) MRSA (PCR) Negative 01/20/19 01/20/19 01/20/19 Range/Units 07:28 07:28 07:28 WBC 26.93 H (4.23-9.07) K/mm3 RBC 4.18 L (4.63-6.08) M/mm3 Hgb 13.1 L (13.7-17.5) gm/dl Hct 41.5 (40.1-51.0) % MCV 99.3 H (79.0-92.2) fl MCH 31.3 (25.7-32.2) pg MCHC 31.6 L (32.2-35.5) g/dl RDW Std Deviation 51.2 H (35.1-43.9) fL Plt Count 432 H (163-337) K/mm3 MPV 10.4 (9.4-12.3) fl Neutrophils % (Manual) 83 H (40-60) % Band Neutrophils % 0 (0-10) % Lymphocytes % (Manual) 14 L (20-40) % Atypical Lymphs % 0 % Monocytes % (Manual) 3 (2-10) % Eosinophils % (Manual) 0 L (0.8-7.0) % Basophils % (Manual) 0 L (0.2-1.2) Hypersegmented Neuts Toxic Granulation Platelet Estimate Adequate Plt Morphology Comment Poikilocytosis 1+ slight Anisocytosis 1+ slight Macrocytosis Target Cells Ovalocytes RBC Morph Comment Gin Inspector PT 12.0 (9.7-12.0) SECONDS INR 1.11 D-Dimer, Quantitative (0.19-0.50) mg/L Puncture Site ABG pH (7.35-7.45) ABG pCO2 (35.0-45.0) mmHg ABG pO2 (80.0-100.0) mmHg ABG HCO3 (22.0-26.0) meq/L ABG O2 Saturation (96.0-97.0) % ABG Base Excess (-2-2.0) A-a Gradient mmHg O2 Delivery Device Oxygen Flow Rate FiO2 (21.00-100.00) % Sodium (136-145) mEq/L Potassium (3.5-5.1) mEq/L Chloride (98-107) mEq/L Carbon Dioxide (21-32) mEq/L Anion Gap (5-15) BUN (7-18) mg/dL Creatinine (0.7-1.3) mg/dL Est Cr Clr Drug Dosing Estimated GFR (MDRD) (>60) mL/min BUN/Creatinine Ratio (14-18) Glucose (83-115) mg/dL Lactic Acid 3.1 H* (0.4-2.0) mmol/L Calcium (8.5-10.1) mg/dL Magnesium (1.8-2.4) mg/dl Total Bilirubin (0.2-1.0) mg/dL AST (15-37) U/L ALT (16-63) U/L Alkaline Phosphatase (46-116) U/L Troponin I (0.00-0.056) ng/mL C-Reactive Protein (<1.0) mg/dL NT-Pro-B Natriuret Pep (0-450) pg/mL Total Protein (6.4-8.2) g/dl Albumin (3.4-5.0) g/dl Globulin gm/dL Albumin/Globulin Ratio (1-2) Urine Color (Yellow) Urine Appearance (Clear) Urine pH (5.0-8.0) Ur Specific [place] (1.005-1.030) Urine Protein (Negative) Urine Glucose (UA) (Negative) Urine Ketones (Negative) Urine Occult Blood (Negative) Urine Nitrite (Negative) Urine Bilirubin (Negative) Urine Urobilinogen (0.2-1.0) Ur Leukocyte Esterase (Negative) Urine RBC (0-5) /hpf Urine WBC (0-5) /hpf Ur Transition Epith Cell (0-5) Urine Bacteria (FEW) /hpf Hyaline Casts (0-5) /lpf Broad Casts (0-5) /hpf Urine Mucus (FEW) /hpf Mycoplasma pneumon IgM (NEGATIVE) MRSA (PCR) 01/20/19 Range/Units 11:19 WBC (4.23-9.07) K/mm3 RBC (4.63-6.08) M/mm3 Hgb (13.7-17.5) gm/dl Hct (40.1-51.0) % MCV (79.0-92.2) fl MCH (25.7-32.2) pg MCHC (32.2-35.5) g/dl RDW Std Deviation (35.1-43.9) fL Plt Count (163-337) K/mm3 MPV (9.4-12.3) fl Neutrophils % (Manual) (40-60) % Band Neutrophils % (0-10) % Lymphocytes % (Manual) (20-40) % Atypical Lymphs % % Monocytes % (Manual) (2-10) % Eosinophils % (Manual) (0.8-7.0) % Basophils % (Manual) (0.2-1.2) Hypersegmented Neuts Toxic Granulation Platelet Estimate Plt Morphology Comment Poikilocytosis Anisocytosis Macrocytosis Target Cells Ovalocytes RBC Morph Comment PT (9.7-12.0) SECONDS INR D-Dimer, Quantitative (0.19-0.50) mg/L Puncture Site ABG pH (7.35-7.45) ABG pCO2 (35.0-45.0) mmHg ABG pO2 (80.0-100.0) mmHg ABG HCO3 (22.0-26.0) meq/L ABG O2 Saturation (96.0-97.0) % ABG Base Excess (-2-2.0) A-a Gradient mmHg O2 Delivery Device Oxygen Flow Rate FiO2 (21.00-100.00) % Sodium (136-145) mEq/L Potassium (3.5-5.1) mEq/L Chloride (98-107) mEq/L Carbon Dioxide (21-32) mEq/L Anion Gap (5-15) BUN (7-18) mg/dL Creatinine (0.7-1.3) mg/dL Est Cr Clr Drug Dosing Estimated GFR (MDRD) (>60) mL/min BUN/Creatinine Ratio (14-18) Glucose (83-115) mg/dL Lactic Acid 4.7 H* (0.4-2.0) mmol/L Calcium (8.5-10.1) mg/dL Magnesium (1.8-2.4) mg/dl Total Bilirubin (0.2-1.0) mg/dL AST (15-37) U/L ALT (16-63) U/L Alkaline Phosphatase (46-116) U/L Troponin I (0.00-0.056) ng/mL C-Reactive Protein (<1.0) mg/dL NT-Pro-B Natriuret Pep (0-450) pg/mL Total Protein (6.4-8.2) g/dl Albumin (3.4-5.0) g/dl Globulin gm/dL Albumin/Globulin Ratio (1-2) Urine Color (Yellow) Urine Appearance (Clear) Urine pH (5.0-8.0) Ur Specific [place] (1.005-1.030) Urine Protein (Negative) Urine Glucose (UA) (Negative) Urine Ketones (Negative) Urine Occult Blood (Negative) Urine Nitrite (Negative) Urine Bilirubin (Negative) Urine Urobilinogen (0.2-1.0) Ur Leukocyte Esterase (Negative) Urine RBC (0-5) /hpf Urine WBC (0-5) /hpf Ur Transition Epith Cell (0-5) Urine Bacteria (FEW) /hpf Hyaline Casts (0-5) /lpf Broad Casts (0-5) /hpf Urine Mucus (FEW) /hpf Mycoplasma pneumon IgM (NEGATIVE) MRSA (PCR) Result Diagrams: 01/20/19 07:28 01/20/19 06:12 Sid Results Last 24 hrs: Microbiology 01/20/19 00:35 Influenza Type A Antigen Screen - Final Nasopharyngeal Swab NEGATIVE INFLUENZA A VIRUS AG REFERENCE RANGE: NEGATIVE Influenza Type B Antigen Screen - Final NEGATIVE INFLUENZA B VIRUS AG REFERENCE RANGE: NEGATIVE Orders Last 24hrs: Active Orders 24 hr Category Date Time Status Patient Status [ADT] Routine ADT 01/20/19 12:53 Active Bedrest [RC] ASDIRECTED Care 01/20/19 05:29 Active Cardiac Monitoring [RC] CONTINUOUS Care 01/20/19 08:40 Inactive Height and Weight [RC] DAILY Care 01/20/19 08:39 Inactive Intake and Output [RC] QSHIFT Care 01/20/19 08:40 Inactive Oxygen Therapy [RC] ASDIRECTED Care 01/20/19 05:32 Active Ready for Discharge [RC] PER UNIT ROUTINE Care 01/20/19 13:10 Active Up to Chair [RC] ASDIRECTED Care 01/20/19 08:39 Inactive VTE/DVT Education [RC] PER UNIT ROUTINE Care 01/20/19 08:39 Inactive Consult to Case Management/Stereoplotter Operator [CONS] Cons 01/20/19 08:39 Active Routine Consult to Spiritual Care [CONS] Routine Cons 01/20/19 08:39 Active Pureed Diet [DIET] Diet 01/20/19 Breakfast Active CULTURE BLOOD [BC] Stat Lab 01/20/19 01:03 Received CULTURE BLOOD [BC] Stat Lab 01/20/19 01:10 Received Acetaminophen [Tylenol] Med 01/20/19 08:39 Active 650 mg PO Q4H PRN Citalopram [Celexa] Med 01/20/19 09:00 Active 10 mg PO DAILY Sodium Chloride 0.9% [Saline Flush] Med 01/20/19 06:48 Active 10 ml FLUSH ASDIRECTED PRN risperiDONE [RisperiDAL] Med 01/20/19 09:00 Active 0.25 mg PO BID Blood Culture x2 Reflex Set [OM.PC] Stat Oth 01/20/19 00:23 Ordered Blood Culture x2 Reflex Set [OM.PC] Stat Oth 01/20/19 06:48 Ordered Saline Lock Insert [OM.PC] Stat Oth 01/20/19 06:48 Ordered Severe Sepsis Onset Time [OM.PC] Stat Oth 01/20/19 06:48 Ordered Resuscitation Status Routine Resus Stat 01/20/19 12:53 Ordered Medication Orders Acetaminophen (Tylenol) 650 mg PO Q4H PRN PRN Reason: Pain (Mild 1-3)/fever Citalopram Hydrobromide (Celexa) 10 mg PO DAILY [facility] Last Admin: 01/20/19 13:49 Dose: Not Given Risperidone (Risperidal) 0.25 mg PO BID [facility] Last Admin: 01/20/19 13:49 Dose: Not Given Sodium Chloride (Saline Flush) 10 ml FLUSH ASDIRECTED PRN PRN Reason: Keep Vein Open Assessment/Plan Comment:: Patient was seen, examined, and evaluated personally and I agree with the above findings, assessment, and plan. I spoke to the and his son in great detail with Ty Rocha PA-C. Patient was discharged just 1 month ago with a very similar but less severe episode of hypernatremia. Patient now has aspiration pneumonia and his mortality is extremely high. Family feels that he would want comfort care and not aggressive treatment. - Mortality Measure Prognosis:: Poor
[2019-01-20] MEDS ORDERED: risperiDONE 0.5 MG Tab PO SCH (09:00)
[2019-01-20] MEDS ORDERED: Aspirin 81 MG Tab.EC PO SCH (09:00)
[2019-01-20] MEDS ORDERED: Finasteride 5 MG Tab PO SCH (09:00)
[2019-01-20] MEDS ORDERED: Lisinopril 10 MG Tab PO SCH (09:00)
[2019-01-20] MEDS ORDERED: Citalopram 10 MG Tab PO SCH (09:00)
[2019-01-20] MEDS ORDERED: Metoprolol Succinate 50 MG Tab.ER PO SCH (09:00)
[2019-01-20] MEDS ORDERED: Albuterol/Ipratropium 3.0-0.5 MG/3 ML Neb Soln NEB SCH (09:00)
[2019-01-20] MEDS ORDERED: Acetaminophen 325 MG Tab PO SCH (09:00)
[2019-01-20] MEDS ORDERED: Cholecalciferol (Vitamin D3) 5,000 UNIT Tab PO SCH (09:00)
[2019-01-20] MEDS ORDERED: Multivitamins,Therapeutic Tab PO SCH (09:00)
[2019-01-20] MEDS ORDERED: Carboxymethylcellulose Sodium 1% Ophth Gel 15 ML Bottle EYEBOTH SCH (09:00)
[2019-01-20] MEDS ORDERED: Sennosides 8.6 MG Tab PO SCH (09:00)
[2019-01-20] MEDS ORDERED: Tamsulosin 0.4 MG Cap.ER PO SCH (09:00)
[2019-01-20] MEDS ORDERED: Bacitracin Oint 15 GM Tube TOP SCH (09:00)
[2019-01-20] MEDS ORDERED: Linezolid 600 MG in Premix Bag 1 BAG IV SCH (09:15)
[2019-01-20] MEDS ORDERED: Dextrose 5% in Water 1,000 ML IV SCH (09:15)
[2019-01-20] MEDS ORDERED: Piperacillin/Tazobactam 4.5 GM in Sodium Chloride 0.9% 100 ML IV SCH (09:30)
--- NOTE | 2019-01-20 09:57 | CR ---
Chest: Portable view of the chest was obtained. Comparison: Prior chest x-ray of 12/15/[address] performed on the same day as current chest x-ray. Haziness within the left lung base is seen which correlates to pleural effusion on subsequent chest CT. This appears as an interval change from prior chest x-ray. Slight parenchymal density is also present within the left base. Right lung is relatively clear. Degenerative change is seen within both shoulders. Heart does not appear enlarged. Tortuous thoracic aorta is noted. Impression: 1. Haziness within the left base correlating to pleural effusion on chest CT. 2. Parenchymal density within the left lung base either due to pneumonia or atelectasis. 3. Other findings which are incidental as described above. Diagnostic code #3 This report was dictated in [place] Standard Time
--- NOTE | 2019-01-20 10:33 | CT ---
CT chest Technique: Multiple axial sections were obtained from above the lung apices inferiorly through the lung bases. Intravenous contrast was utilized. Study performed as a pulmonary angiogram protocol. Findings: Pulmonary arteries are well opacified. No filling defects are seen to indicate pulmonary embolism. Aorta shows atherosclerotic change with ectasia. No aneurysm is identified. Heart shows minimal pericardial effusion. Visualized upper abdominal structures show no discrete abnormality. Small left-sided pleural effusion is seen may be loculated. Focal parenchymal density adjacent to the pleural effusion compatible with atelectasis or pneumonia. Emphysematous changes are present. Mild atelectasis is seen within the right lung base. Fluid is seen within the esophagus raising the possibility of chronic gastroesophageal reflux. Impression: 1. Small left sided pleural effusion some of which may be loculated. 2. Left basilar parenchymal density either due to atelectasis or pneumonia. 3. Mild right basilar atelectasis. 4. Emphysematous change. 5. No findings of pulmonary embolism. 6. Possible chronic gastroesophageal reflux Diagnostic code #3 This report was dictated in [place] Standard Time I agree with preliminary report from [facility], finalized on 01/20/19, 4:38 AM Central Time
[2019-01-20] MEDS ORDERED: Bacitracin Oint 15 GM Tube TOP ONE (12:00)
[2019-01-20] MEDS ORDERED: Cholecalciferol (Vitamin D3) 5,000 UNIT Tab PO ONE (12:00)
[2019-01-20] MEDS ORDERED: Aspirin 81 MG Tab.EC PO ONE (12:00)
[2019-01-20] MEDS ORDERED: Finasteride 5 MG Tab PO ONE (12:00)
[2019-01-20] MEDS ORDERED: Metoprolol Succinate 50 MG Tab.ER PO ONE (12:00)
[2019-01-20] MEDS ORDERED: Lisinopril 10 MG Tab PO ONE (12:00)
[2019-01-20] MEDS ORDERED: Carboxymethylcellulose Sodium 1% Ophth Gel 15 ML Bottle EYEBOTH ONE (12:00)
[2019-01-20] MEDS ORDERED: Sennosides 8.6 MG Tab PO ONE (12:15)
[2019-01-20] MEDS ORDERED: Tamsulosin 0.4 MG Cap.ER PO ONE (12:15)
[2019-01-20] MEDS ORDERED: Multivitamins,Therapeutic Tab PO ONE (12:15)
--- NOTE | 2019-01-20 12:25 | CR ---
Chest: Two views of the chest were obtained. Comparison: Prior chest CT study of 01/20/19. Left-sided pleural effusion is seen being loculated posteriorly. Heart is mildly enlarged. Slight parenchymal density remains within the left base. Right lung is clear. Scoliosis is noted within the spine with diffuse degenerative change. Findings of chronic rotator cuff tear are noted within both shoulders. Impression: 1. Left-sided pleural effusion with mild left basilar parenchymal density. 2. Cardiomegaly. 3. Other findings which are felt to be incidental. Diagnostic code #3 This report was dictated in [place] [employer] Time
--- NOTE | 2019-01-20 13:13 | PCM.DCSUM1 ---
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 EMS noted that his saturations were 87% on room air. He is placed on 4 L via NC which increased at 91%. [facility] reports the patient has had a decreased appetite for about a week. Patient was hospitalized on 12 15 through 12/20 with altered mental status and significant hypernatremia. At that time patient was also found to have minimal oral intake. Calvin does have a noncommunicative baseline. [facility] reports patient is usually staring into space. In the ED twelve-lead EKG is obtained showing A. fib at 124 beats per minutes with a prolonged QTC. There is no change noted from prior twelve-lead. Temp is 36.8. Respirations 22. Blood pressure 133/93. Pulse ox 91%. Labs obtained showing a very elevated white count at 26.58. Hemoglobin 13.3. Hematocrit 42.0. He is macrocytic. Platelets are very high at 471. Neutrophils are elevated at 79%. There is a percent band neutrophils noted. D- dimer is obtained and is high at 3.38. ABGs obtained in the right radial showing a pH of 7.49. PCO2 33.3. PO2 of 59.0. Bicarbonate 24.9. Oxygen saturation 92.2. At the base excess of 2.3. This is on 4 L via nasal cannula. Sodium is very high at 155. Potassium 3.8. Chloride 1:15. Carbon dioxide 27. Anion gap is high at 16.8. BUN is high at 38. Creatinine 0.9. EGFR greater than 60. Glucose is 163. Lactic acid is high at 2.5. Calcium is 10. Magnesium 2.4. Bilirubin 0.9. AST is 285, ALT 499, alkaline phosphatase 278. Troponin is negative at 0.049. ProBNP is high at 1830. albumin is low at 2.2. UA is negative however 2+ protein, 1+ occult blood, 10-20 RBCs, moderate bacteria, many mucous are noted. He is given a few IV boluses and started on vancomycin, Zosyn, and gentamicin. CTA of the chest is obtained and interpreted by Mahi as "1. No central or segmental pulmonary embolus. 2. Secretions/debris within the visualized trachea. 3. Possible pulmonary edema versus multifocal pneumonia, possible aspiration pneumonia. Segmental left lower lobe compressive atelectasis versus pneumonia. 4. Pleural parenchymal calcifications left lung consistent with prior asbestos exposure. 5. Small possibly partially loculated left pleural effusion. 6. Small hiatal hernia. Fluid within esophagus the level of the thoracic inlet. Gastroesophageal reflux. 7. Additional nonemergent CT findings above." He carries a history of macular degeneration, A. fib, HLD, hypertension, GERD, hiatal hernia, BPH, head trauma, cerebrovascular disease, dementia, anxiety, depression, schizophrenia. He is a DNR. His PCP is Dr. cedeño. He says really admitted to the medical floor for management of his pneumonia, dehydration and hypernatremia. Diagnosis: Stroke: No - Discharge Data Discharge Date: 01/20/19 (Admit date: 01/20/19) Discharge Disposition: DC/Tfer to SNF 03 Condition: Poor - Referral to Home Health Primary Care Physician: Micky Whitaker MD - Discharge Diagnosis/Problem(s) (1) Aspiration pneumonia SNOMED Code(s): 841720077 ICD Code: J69.0 - PNEUMONITIS DUE TO INHALATION OF FOOD AND VOMIT Status: Acute Priority: High Current Visit: Yes Qualifiers: Aspiration pneumonia type: unspecified Laterality: left Lung location: lower lobe of lung Qualified Code(s): J69.0 - Pneumonitis due to inhalation of food and vomit (2) Hypernatremia SNOMED Code(s): 260253271 ICD Code: E87.0 - HYPEROSMOLALITY AND HYPERNATREMIA Status: Acute Priority: High Current Visit: Yes (3) Intravascular volume depletion SNOMED Code(s): 15384403 ICD Code: E86.1 - HYPOVOLEMIA Status: Acute Priority: High Current Visit: Yes (4) Altered mental status SNOMED Code(s): 543766703 ICD Code: R41.82 - ALTERED MENTAL STATUS, UNSPECIFIED Status: Chronic Priority: Medium Current Visit: No Qualifiers: Altered mental status type: unspecified Qualified Code(s): R41.82 - Altered mental status, unspecified (5) Atrial fibrillation SNOMED Code(s): 35543316 ICD Code: I48.91 - UNSPECIFIED ATRIAL FIBRILLATION Status: Chronic Priority: Medium Current Visit: No Qualifiers: Atrial fibrillation type: unspecified Qualified Code(s): I48.91 - Unspecified atrial fibrillation (6) Chronic constipation SNOMED Code(s): 248486210 ICD Code: K59.09 - OTHER CONSTIPATION Status: Chronic Priority: Low Current Visit: No (7) Dementia SNOMED Code(s): 86667711 ICD Code: F03.90 - UNSPECIFIED DEMENTIA WITHOUT BEHAVIORAL DISTURBANCE Status: Chronic Priority: Medium Current Visit: No Qualifiers: Dementia type: unspecified type Dementia behavioral disturbance: without behavioral disturbance Qualified Code(s): F03.90 - Unspecified dementia without behavioral disturbance (8) Dyslipidemia SNOMED Code(s): 856327259 ICD Code: E78.5 - HYPERLIPIDEMIA, UNSPECIFIED Status: Chronic Priority: Low Current Visit: No (9) ANDREW (generalized anxiety disorder) SNOMED Code(s): 31769080 ICD Code: F41.1 - GENERALIZED ANXIETY DISORDER Status: Chronic Priority: Low Current Visit: No (10) Hypertension SNOMED Code(s): 75591688 ICD Code: I10 - ESSENTIAL (PRIMARY) HYPERTENSION Status: Chronic Priority : Low Current Visit: No Qualifiers: Hypertension type: unspecified Qualified Code(s): I10 - Essential (primary ) hypertension (11) Lactic acidosis SNOMED Code(s): 26370889 ICD Code: E87.2 - ACIDOSIS Status: Acute Priority: High Current Visit: Yes (12) Leukocytosis SNOMED Code(s): 493288323, 448021203 ICD Code: D72.829 - ELEVATED WHITE BLOOD CELL COUNT, UNSPECIFIED Status: Acute Priority: High Current Visit: Yes Qualifiers: Leukocytosis type: other Qualified Code(s): D72.828 - Other elevated white blood cell count (13) [facility] resident SNOMED Code(s): 389837890 ICD Code: Z59.3 - PROBLEMS RELATED TO LIVING IN RESIDENTIAL INSTITUTION Status: Chronic Priority: Low Current Visit: No (14) Schizophrenia SNOMED Code(s): 45254145 ICD Code: F20.9 - SCHIZOPHRENIA, UNSPECIFIED Status: Chronic Priority: Low Current Visit: No Qualifiers: Schizophrenia type: unspecified Qualified Code(s): F20.9 - Schizophrenia, unspecified (15) Need for comfort care SNOMED Code(s): 457159232, 849298056 ICD Code: [id number] - Status: Acute Priority: High Current Visit: Yes - Patient Summary/Data Consults: Consultations 01/20/19 08:39 Consult to Case Management/Aoc Plans Intelligence Officer Chief [CONS] Routine Consult to Spiritual Care [CONS] Routine Labs Pending at D/C: Blood cultures Recommended Follow-up Testing/Procedures: Follow-up with PCP as needed for comfort care. Hospital Course: Calvin Nash was admitted to the hospital floor due to aspiration pneumonia, hypernatremia, and dehydration. Even with aggressive rehydration his lactic acid continue to trend up. He did remain unresponsive while on the floor. On his last visit approximately 1 month ago patient was discharged home on comfort cares. Family reports he did do pretty well after that for a short time but then started to not eat again. His mental status appears to have been decreasing as well. Discussion ensued with the family about the patient's overall clinical picture and likely prognosis as it appears to be difficult to maintain his sodium level. Family reports that they would like the patient to be made comfort care, as they feel this is in the patient's wishes. They would like to continue oxygen as needed for comfort care, stop all antibiotics, IV fluids, lab draws, and vital signs. We discussed home medications and they report that they have had issues with the patients mental status in the past and therefore they would like only his psychiatric medications continued. At this time he is not having any signs of any distress however they agreed to liquid morphine and liquid Ativan as needed for pain and agitation/ restlessness. These will be sent to pharmacy. When necessary Tylenol, Celexa, and Risperdal were continued. All other home medications were discontinued. He was discharged back to [facility] [place] [facility] under comfort care. - Patient Instructions Diet: Pureed Diet, Other: Usual diet for comfort care Activity: Bedrest Driving: Do Not Drive Other/Special Instructions: Discharge back to [facility] in [place] on comfort care. Home medications as indicated. These were discussed with family. Oxygen as needed for comfort care. Oral morphine and ativan as needed for comfort care. Follow-up with PCP as needed for comfort care. - Discharge Plan *PRESCRIPTION DRUG MONITORING PROGRAM REVIEWED*: Not Applicable *COPY OF PRESCRIPTION DRUG MONITORING REPORT IN PATIENT SHILPI: Not Applicable Prescriptions/Med Rec: LORazepam [Ativan] 0.5 mg PO Q6H PRN #10 ml PRN Reason: Restlessness/anxiety Morphine [Morphine 20 MG/ML Soln] 5 mg PO Q1H PRN #20 ml PRN Reason: Pain Home Medications: Home Meds Acetaminophen 325 - 650 mg PO Q6HR PRN 12/15/18 [History] Citalopram Hydrobromide [Celexa] 10 mg PO DAILY 01/20/19 [History] LORazepam [Ativan] 0.5 mg PO Q6H PRN #10 ml 01/20/19 [Rx] Morphine [Morphine 20 MG/ML Soln] 5 mg PO Q1H PRN #20 ml 01/20/19 [Rx] risperiDONE [Risperdal] 0.25 mg PO BID 01/20/19 [History] Oxygen Therapy Mode: Nasal Cannula Oxygen Flow Rate (L/min): 1 (As needed for comfort care ) Patient Handouts: Sepsis, Adult, Aspiration Pneumonia Forms: ED Department Discharge Referrals: Micky Whitaker MD [Primary Care Provider] - - Discharge Summary/Plan Comment DC Time >30 min.: No - General Info Date of Service: 01/20/19 Admission Dx/Problem (Free Text: Admission Diagnosis/Problem Admission Diagnosis/Problem Aspiration pneumonia Functional Status: Reports: Pain Controlled, Urinating. Denies: Ambulating, New Symptoms - Review of Systems Systems Review Comment: Unable to obtain ROS due to patients mental status. - Patient Data Vitals - Most Recent: Last Vital Signs Temp 97.2 F 01/20/19 08:17 Pulse 109 H 01/20/19 08:17 Resp 20 01/20/19 08:17 BP 135/81 01/20/19 08:17 Pulse Ox 92 L 01/20/19 13:04 Weight - Most Recent: 128 lb 3.2 oz I&O - Last 24 hours: Intake & Output 01/19/19 01/20/19 01/20/19 22:59 06:59 14:59 Output Total 40 Balance -40 Lab Results - Last 24 hrs: Laboratory Results - last 24 hr 01/20/19 01/20/19 01/20/19 Range/Units 00:38 01:03 01:03 WBC 26.58 H (4.23-9.07) K/mm3 RBC 4.30 L (4.63-6.08) M/mm3 Hgb 13.3 L (13.7-17.5) gm/dl Hct 42.0 (40.1-51.0) % MCV 97.7 H (79.0-92.2) fl MCH 30.9 (25.7-32.2) pg MCHC 31.7 L (32.2-35.5) g/dl RDW Std Deviation 49.3 H (35.1-43.9) fL Plt Count 471 H D (163-337) K/mm3 MPV 10.4 (9.4-12.3) fl Neutrophils % (Manual) 79 H (40-60) % Band Neutrophils % 8 (0-10) % Lymphocytes % (Manual) 5 L (20-40) % Atypical Lymphs % 0 % Monocytes % (Manual) 8 (2-10) % Eosinophils % (Manual) 0 L (0.8-7.0) % Basophils % (Manual) 0 L (0.2-1.2) Hypersegmented Neuts Few Toxic Granulation 2+ moderate Platelet Estimate Increased Plt Morphology Comment Normal Poikilocytosis Anisocytosis 2+ moderate Macrocytosis 2+ moderate Target Cells 1+ slight Ovalocytes 1+ slight RBC Morph Comment Not Reportable PT (9.7-12.0) SECONDS INR D-Dimer, Quantitative 3.38 H (0.19-0.50) mg/L Puncture Site Rt radial ABG pH 7.49 H (7.35-7.45) ABG pCO2 33.3 L (35.0-45.0) mmHg ABG pO2 59.0 L (80.0-100.0) mmHg ABG HCO3 24.9 (22.0-26.0) meq/L ABG O2 Saturation 92.2 L (96.0-97.0) % ABG Base Excess 2.3 H (-2-2.0) A-a Gradient 157 mmHg O2 Delivery Device Cannula Oxygen Flow Rate 4.0 FiO2 36.00 (21.00-100.00) % Sodium (136-145) mEq/L Potassium (3.5-5.1) mEq/L Chloride (98-107) mEq/L Carbon Dioxide (21-32) mEq/L Anion Gap (5-15) BUN (7-18) mg/dL Creatinine (0.7-1.3) mg/dL Est Cr Clr Drug Dosing Estimated GFR (MDRD) (>60) mL/min BUN/Creatinine Ratio (14-18) Glucose (83-115) mg/dL Lactic Acid (0.4-2.0) mmol/L Calcium (8.5-10.1) mg/dL Magnesium (1.8-2.4) mg/dl Total Bilirubin (0.2-1.0) mg/dL AST (15-37) U/L ALT (16-63) U/L Alkaline Phosphatase (46-116) U/L Troponin I (0.00-0.056) ng/mL C-Reactive Protein (<1.0) mg/dL NT-Pro-B Natriuret Pep (0-450) pg/mL Total Protein (6.4-8.2) g/dl Albumin (3.4-5.0) g/dl Globulin gm/dL Albumin/Globulin Ratio (1-2) Urine Color (Yellow) Urine Appearance (Clear) Urine pH (5.0-8.0) Ur Specific Upper Tract (1.005-1.030) Urine Protein (Negative) Urine Glucose (UA) (Negative) Urine Ketones (Negative) Urine Occult Blood (Negative) Urine Nitrite (Negative) Urine Bilirubin (Negative) Urine Urobilinogen (0.2-1.0) Ur Leukocyte Esterase (Negative) Urine RBC (0-5) /hpf Urine WBC (0-5) /hpf Ur Transition Epith Cell (0-5) Urine Bacteria (FEW) /hpf Hyaline Casts (0-5) /lpf Broad Casts (0-5) /hpf Urine Mucus (FEW) /hpf Mycoplasma pneumon IgM (NEGATIVE) MRSA (PCR) 01/20/19 01/20/19 01/20/19 Range/Units 01:03 01:03 01:03 WBC (4.23-9.07) K/mm3 RBC (4.63-6.08) M/mm3 Hgb (13.7-17.5) gm/dl Hct (40.1-51.0) % MCV (79.0-92.2) fl MCH (25.7-32.2) pg MCHC (32.2-35.5) g/dl RDW Std Deviation (35.1-43.9) fL Plt Count (163-337) K/mm3 MPV (9.4-12.3) fl Neutrophils % (Manual) (40-60) % Band Neutrophils % (0-10) % Lymphocytes % (Manual) (20-40) % Atypical Lymphs % % Monocytes % (Manual) (2-10) % Eosinophils % (Manual) (0.8-7.0) % Basophils % (Manual) (0.2-1.2) Hypersegmented Neuts Toxic Granulation Platelet Estimate Plt Morphology Comment Poikilocytosis Anisocytosis Macrocytosis Target Cells Ovalocytes RBC Morph Comment PT (9.7-12.0) SECONDS INR D-Dimer, Quantitative (0.19-0.50) mg/L Puncture Site ABG pH (7.35-7.45) ABG pCO2 (35.0-45.0) mmHg ABG pO2 (80.0-100.0) mmHg ABG HCO3 (22.0-26.0) meq/L ABG O2 Saturation (96.0-97.0) % ABG Base Excess (-2-2.0) A-a Gradient mmHg O2 Delivery Device Oxygen Flow Rate FiO2 (21.00-100.00) % Sodium 155 H D (136-145) mEq/L Potassium 3.8 (3.5-5.1) mEq/L Chloride 115 H (98-107) mEq/L Carbon Dioxide 27 (21-32) mEq/L Anion Gap 16.8 H (5-15) BUN 38 H (7-18) mg/dL Creatinine 0.9 (0.7-1.3) mg/dL Est Cr Clr Drug Dosing TNP Estimated GFR (MDRD) > 60 (>60) mL/min BUN/Creatinine Ratio 42.2 H (14-18) Glucose 163 H (83-115) mg/dL Lactic Acid 2.5 H* (0.4-2.0) mmol/L Calcium 10.0 (8.5-10.1) mg/dL Magnesium 2.4 (1.8-2.4) mg/dl Total Bilirubin 0.9 (0.2-1.0) mg/dL AST 285 H (15-37) U/L ALT 499 H (16-63) U/L Alkaline Phosphatase 278 H (46-116) U/L Troponin I 0.049 (0.00-0.056) ng/mL C-Reactive Protein (<1.0) mg/dL NT-Pro-B Natriuret Pep 1830 H (0-450) pg/mL Total Protein 7.9 (6.4-8.2) g/dl Albumin 2.2 L (3.4-5.0) g/dl Globulin 5.7 gm/dL Albumin/Globulin Ratio 0.4 L (1-2) Urine Color (Yellow) Urine Appearance (Clear) Urine pH (5.0-8.0) Ur Specific Upper Tract (1.005-1.030) Urine Protein (Negative) Urine Glucose (UA) (Negative) Urine Ketones (Negative) Urine Occult Blood (Negative) Urine Nitrite (Negative) Urine Bilirubin (Negative) Urine Urobilinogen (0.2-1.0) Ur Leukocyte Esterase (Negative) Urine RBC (0-5) /hpf Urine WBC (0-5) /hpf Ur Transition Epith Cell (0-5) Urine Bacteria (FEW) /hpf Hyaline Casts (0-5) /lpf Broad Casts (0-5) /hpf Urine Mucus (FEW) /hpf Mycoplasma pneumon IgM (NEGATIVE) MRSA (PCR) 01/20/19 01/20/19 01/20/19 Range/Units 01:03 01:20 04:34 WBC (4.23-9.07) K/mm3 RBC (4.63-6.08) M/mm3 Hgb (13.7-17.5) gm/dl Hct (40.1-51.0) % MCV (79.0-92.2) fl MCH (25.7-32.2) pg MCHC (32.2-35.5) g/dl RDW Std Deviation (35.1-43.9) fL Plt Count (163-337) K/mm3 MPV (9.4-12.3) fl Neutrophils % (Manual) (40-60) % Band Neutrophils % (0-10) % Lymphocytes % (Manual) (20-40) % Atypical Lymphs % % Monocytes % (Manual) (2-10) % Eosinophils % (Manual) (0.8-7.0) % Basophils % (Manual) (0.2-1.2) Hypersegmented Neuts Toxic Granulation Platelet Estimate Plt Morphology Comment Poikilocytosis Anisocytosis Macrocytosis Target Cells Ovalocytes RBC Morph Comment PT (9.7-12.0) SECONDS INR D-Dimer, Quantitative (0.19-0.50) mg/L Puncture Site ABG pH (7.35-7.45) ABG pCO2 (35.0-45.0) mmHg ABG pO2 (80.0-100.0) mmHg ABG HCO3 (22.0-26.0) meq/L ABG O2 Saturation (96.0-97.0) % ABG Base Excess (-2-2.0) A-a Gradient mmHg O2 Delivery Device Oxygen Flow Rate FiO2 (21.00-100.00) % Sodium (136-145) mEq/L Potassium (3.5-5.1) mEq/L Chloride (98-107) mEq/L Carbon Dioxide (21-32) mEq/L Anion Gap (5-15) BUN (7-18) mg/dL Creatinine (0.7-1.3) mg/dL Est Cr Clr Drug Dosing Estimated GFR (MDRD) (>60) mL/min BUN/Creatinine Ratio (14-18) Glucose (83-115) mg/dL Lactic Acid 2.4 H* (0.4-2.0) mmol/L Calcium (8.5-10.1) mg/dL Magnesium (1.8-2.4) mg/dl Total Bilirubin (0.2-1.0) mg/dL AST (15-37) U/L ALT (16-63) U/L Alkaline Phosphatase (46-116) U/L Troponin I (0.00-0.056) ng/mL C-Reactive Protein (<1.0) mg/dL NT-Pro-B Natriuret Pep (0-450) pg/mL Total Protein (6.4-8.2) g/dl Albumin (3.4-5.0) g/dl Globulin gm/dL Albumin/Globulin Ratio (1-2) Urine Color Yellow (Yellow) Urine Appearance Clear (Clear) Urine pH 6.0 (5.0-8.0) Ur Specific Upper Tract 1.025 (1.005-1.030) Urine Protein 2+ H (Negative) Urine Glucose (UA) Negative (Negative) Urine Ketones Negative (Negative) Urine Occult Blood 1+ H (Negative) Urine Nitrite Negative (Negative) Urine Bilirubin Negative (Negative) Urine Urobilinogen 1.0 (0.2-1.0) Ur Leukocyte Esterase Negative (Negative) Urine RBC 10-20 H (0-5) /hpf Urine WBC 0-5 (0-5) /hpf Ur Transition Epith Cell 0-5 (0-5) Urine Bacteria Moderate H (FEW) /hpf Hyaline Casts 0-5 (0-5) /lpf Broad Casts 0-5 (0-5) /hpf Urine Mucus Many H (FEW) /hpf Mycoplasma pneumon IgM Negative (NEGATIVE) MRSA (PCR) 01/20/19 01/20/19 01/20/19 Range/Units 04:47 06:12 06:12 WBC (4.23-9.07) K/mm3 RBC (4.63-6.08) M/mm3 Hgb (13.7-17.5) gm/dl Hct (40.1-51.0) % MCV (79.0-92.2) fl MCH (25.7-32.2) pg MCHC (32.2-35.5) g/dl RDW Std Deviation (35.1-43.9) fL Plt Count (163-337) K/mm3 MPV (9.4-12.3) fl Neutrophils % (Manual) (40-60) % Band Neutrophils % (0-10) % Lymphocytes % (Manual) (20-40) % Atypical Lymphs % % Monocytes % (Manual) (2-10) % Eosinophils % (Manual) (0.8-7.0) % Basophils % (Manual) (0.2-1.2) Hypersegmented Neuts Toxic Granulation Platelet Estimate Plt Morphology Comment Poikilocytosis Anisocytosis Macrocytosis Target Cells Ovalocytes RBC Morph Comment PT (9.7-12.0) SECONDS INR D-Dimer, Quantitative (0.19-0.50) mg/L Puncture Site ABG pH (7.35-7.45) ABG pCO2 (35.0-45.0) mmHg ABG pO2 (80.0-100.0) mmHg ABG HCO3 (22.0-26.0) meq/L ABG O2 Saturation (96.0-97.0) % ABG Base Excess (-2-2.0) A-a Gradient mmHg O2 Delivery Device Oxygen Flow Rate FiO2 (21.00-100.00) % Sodium 157 H (136-145) mEq/L Potassium 3.7 (3.5-5.1) mEq/L Chloride 119 H (98-107) mEq/L Carbon Dioxide 27 (21-32) mEq/L Anion Gap 14.7 (5-15) BUN 35 H (7-18) mg/dL Creatinine 1.0 (0.7-1.3) mg/dL Est Cr Clr Drug Dosing 46.84 Estimated GFR (MDRD) > 60 (>60) mL/min BUN/Creatinine Ratio 35.0 H (14-18) Glucose 160 H (83-115) mg/dL Lactic Acid (0.4-2.0) mmol/L Calcium 9.4 (8.5-10.1) mg/dL Magnesium (1.8-2.4) mg/dl Total Bilirubin 1.0 (0.2-1.0) mg/dL AST 219 H (15-37) U/L ALT 437 H (16-63) U/L Alkaline Phosphatase 221 H (46-116) U/L Troponin I (0.00-0.056) ng/mL C-Reactive Protein 20.2 H* (<1.0) mg/dL NT-Pro-B Natriuret Pep (0-450) pg/mL Total Protein 6.5 (6.4-8.2) g/dl Albumin 1.8 L (3.4-5.0) g/dl Globulin 4.7 gm/dL Albumin/Globulin Ratio 0.4 L (1-2) Urine Color (Yellow) Urine Appearance (Clear) Urine pH (5.0-8.0) Ur Specific Upper Tract (1.005-1.030) Urine Protein (Negative) Urine Glucose (UA) (Negative) Urine Ketones (Negative) Urine Occult Blood (Negative) Urine Nitrite (Negative) Urine Bilirubin (Negative) Urine Urobilinogen (0.2-1.0) Ur Leukocyte Esterase (Negative) Urine RBC (0-5) /hpf Urine WBC (0-5) /hpf Ur Transition Epith Cell (0-5) Urine Bacteria (FEW) /hpf Hyaline Casts (0-5) /lpf Broad Casts (0-5) /hpf Urine Mucus (FEW) /hpf Mycoplasma pneumon IgM (NEGATIVE) MRSA (PCR) Negative 01/20/19 01/20/19 01/20/19 Range/Units 07:28 07:28 07:28 WBC 26.93 H (4.23-9.07) K/mm3 RBC 4.18 L (4.63-6.08) M/mm3 Hgb 13.1 L (13.7-17.5) gm/dl Hct 41.5 (40.1-51.0) % MCV 99.3 H (79.0-92.2) fl MCH 31.3 (25.7-32.2) pg MCHC 31.6 L (32.2-35.5) g/dl RDW Std Deviation 51.2 H (35.1-43.9) fL Plt Count 432 H (163-337) K/mm3 MPV 10.4 (9.4-12.3) fl Neutrophils % (Manual) 83 H (40-60) % Band Neutrophils % 0 (0-10) % Lymphocytes % (Manual) 14 L (20-40) % Atypical Lymphs % 0 % Monocytes % (Manual) 3 (2-10) % Eosinophils % (Manual) 0 L (0.8-7.0) % Basophils % (Manual) 0 L (0.2-1.2) Hypersegmented Neuts Toxic Granulation Platelet Estimate Adequate Plt Morphology Comment Poikilocytosis 1+ slight Anisocytosis 1+ slight Macrocytosis Target Cells Ovalocytes RBC Morph Comment Director Of Spa And Guest Experience PT 12.0 (9.7-12.0) SECONDS INR 1.11 D-Dimer, Quantitative (0.19-0.50) mg/L Puncture Site ABG pH (7.35-7.45) ABG pCO2 (35.0-45.0) mmHg ABG pO2 (80.0-100.0) mmHg ABG HCO3 (22.0-26.0) meq/L ABG O2 Saturation (96.0-97.0) % ABG Base Excess (-2-2.0) A-a Gradient mmHg O2 Delivery Device Oxygen Flow Rate FiO2 (21.00-100.00) % Sodium (136-145) mEq/L Potassium (3.5-5.1) mEq/L Chloride (98-107) mEq/L Carbon Dioxide (21-32) mEq/L Anion Gap (5-15) BUN (7-18) mg/dL Creatinine (0.7-1.3) mg/dL Est Cr Clr Drug Dosing Estimated GFR (MDRD) (>60) mL/min BUN/Creatinine Ratio (14-18) Glucose (83-115) mg/dL Lactic Acid 3.1 H* (0.4-2.0) mmol/L Calcium (8.5-10.1) mg/dL Magnesium (1.8-2.4) mg/dl Total Bilirubin (0.2-1.0) mg/dL AST (15-37) U/L ALT (16-63) U/L Alkaline Phosphatase (46-116) U/L Troponin I (0.00-0.056) ng/mL C-Reactive Protein (<1.0) mg/dL NT-Pro-B Natriuret Pep (0-450) pg/mL Total Protein (6.4-8.2) g/dl Albumin (3.4-5.0) g/dl Globulin gm/dL Albumin/Globulin Ratio (1-2) Urine Color (Yellow) Urine Appearance (Clear) Urine pH (5.0-8.0) Ur Specific Upper Tract (1.005-1.030) Urine Protein (Negative) Urine Glucose (UA) (Negative) Urine Ketones (Negative) Urine Occult Blood (Negative) Urine Nitrite (Negative) Urine Bilirubin (Negative) Urine Urobilinogen (0.2-1.0) Ur Leukocyte Esterase (Negative) Urine RBC (0-5) /hpf Urine WBC (0-5) /hpf Ur Transition Epith Cell (0-5) Urine Bacteria (FEW) /hpf Hyaline Casts (0-5) /lpf Broad Casts (0-5) /hpf Urine Mucus (FEW) /hpf Mycoplasma pneumon IgM (NEGATIVE) MRSA (PCR) 01/20/19 Range/Units 11:19 WBC (4.23-9.07) K/mm3 RBC (4.63-6.08) M/mm3 Hgb (13.7-17.5) gm/dl Hct (40.1-51.0) % MCV (79.0-92.2) fl MCH (25.7-32.2) pg MCHC (32.2-35.5) g/dl RDW Std Deviation (35.1-43.9) fL Plt Count (163-337) K/mm3 MPV (9.4-12.3) fl Neutrophils % (Manual) (40-60) % Band Neutrophils % (0-10) % Lymphocytes % (Manual) (20-40) % Atypical Lymphs % % Monocytes % (Manual) (2-10) % Eosinophils % (Manual) (0.8-7.0) % Basophils % (Manual) (0.2-1.2) Hypersegmented Neuts Toxic Granulation Platelet Estimate Plt Morphology Comment Poikilocytosis Anisocytosis Macrocytosis Target Cells Ovalocytes RBC Morph Comment PT (9.7-12.0) SECONDS INR D-Dimer, Quantitative (0.19-0.50) mg/L Puncture Site ABG pH (7.35-7.45) ABG pCO2 (35.0-45.0) mmHg ABG pO2 (80.0-100.0) mmHg ABG HCO3 (22.0-26.0) meq/L ABG O2 Saturation (96.0-97.0) % ABG Base Excess (-2-2.0) A-a Gradient mmHg O2 Delivery Device Oxygen Flow Rate FiO2 (21.00-100.00) % Sodium (136-145) mEq/L Potassium (3.5-5.1) mEq/L Chloride (98-107) mEq/L Carbon Dioxide (21-32) mEq/L Anion Gap (5-15) BUN (7-18) mg/dL Creatinine (0.7-1.3) mg/dL Est Cr Clr Drug Dosing Estimated GFR (MDRD) (>60) mL/min BUN/Creatinine Ratio (14-18) Glucose (83-115) mg/dL Lactic Acid 4.7 H* (0.4-2.0) mmol/L Calcium (8.5-10.1) mg/dL Magnesium (1.8-2.4) mg/dl Total Bilirubin (0.2-1.0) mg/dL AST (15-37) U/L ALT (16-63) U/L Alkaline Phosphatase (46-116) U/L Troponin I (0.00-0.056) ng/mL C-Reactive Protein (<1.0) mg/dL NT-Pro-B Natriuret Pep (0-450) pg/mL Total Protein (6.4-8.2) g/dl Albumin (3.4-5.0) g/dl Globulin gm/dL Albumin/Globulin Ratio (1-2) Urine Color (Yellow) Urine Appearance (Clear) Urine pH (5.0-8.0) Ur Specific Upper Tract (1.005-1.030) Urine Protein (Negative) Urine Glucose (UA) (Negative) Urine Ketones (Negative) Urine Occult Blood (Negative) Urine Nitrite (Negative) Urine Bilirubin (Negative) Urine Urobilinogen (0.2-1.0) Ur Leukocyte Esterase (Negative) Urine RBC (0-5) /hpf Urine WBC (0-5) /hpf Ur Transition Epith Cell (0-5) Urine Bacteria (FEW) /hpf Hyaline Casts (0-5) /lpf Broad Casts (0-5) /hpf Urine Mucus (FEW) /hpf Mycoplasma pneumon IgM (NEGATIVE) MRSA (PCR) [facility] Results - Last 24 hrs: Microbiology 01/20/19 00:35 Influenza Type A Antigen Screen - Final Nasopharyngeal Swab NEGATIVE INFLUENZA A VIRUS AG REFERENCE RANGE: NEGATIVE Influenza Type B Antigen Screen - Final NEGATIVE INFLUENZA B [facility] REFERENCE RANGE: NEGATIVE Med Orders - Current: Current Medications Acetaminophen (Tylenol) 650 mg PO Q4H PRN PRN Reason: Pain (Mild 1-3)/fever Citalopram Hydrobromide (Celexa) 10 mg PO DAILY [facility] Risperidone (Risperidal) 0.25 mg PO BID [facility] Sodium Chloride (Saline Flush) 10 ml FLUSH ASDIRECTED PRN PRN Reason: Keep Vein Open Discontinued Medications Acetaminophen (Tylenol) 650 mg PO TID [facility] Albuterol/Ipratropium (Duoneb 3.0-0.5 Mg/3 Ml) 3 ml NEB Q4H [facility] Last Admin: 01/20/19 09:52 Dose: 3 ml Artificial Tears (Refresh Liquigel 1%) 0 ml EYEBOTH BID [facility] Artificial Tears (Refresh Liquigel 1%) 0 ml EYEBOTH ONETIME ONE Stop: 01/20/19 12:01 Aspirin (Halfprin) 81 mg PO DAILY [facility] Aspirin (Halfprin) 81 mg PO ONETIME ONE Stop: 01/20/19 12:01 Bacitracin (Bacitracin Oint) 0 gm TOP DAILY [facility] Bacitracin (Bacitracin Oint) 0 gm TOP ONETIME ONE Stop: 01/20/19 12:01 Bisacodyl (Dulcolax) 5 mg PO DAILY PRN PRN Reason: Constipation Cholecalciferol (Vitamin D3) 5,000 unit PO DAILY [facility] Cholecalciferol (Vitamin D3) 5,000 unit PO ONETIME ONE Stop: 01/20/19 12:01 Citalopram Hydrobromide (Celexa) 10 mg PO ONETIME ONE Stop: 01/20/19 12:01 Docusate Sodium (Colace) 100 mg PO BID PRN PRN Reason: Constipation Finasteride (Proscar) 5 mg PO DAILY [facility] Finasteride (Proscar) 5 mg PO ONETIME ONE Stop: 01/20/19 12:01 Piperacillin Sod/Tazobactam (Sod 4.5 gm/ Sodium Chloride) 100 mls @ 25 mls/hr IV ONETIME STA Stop: 01/20/19 05:30 Last Admin: 01/20/19 01:48 Dose: 25 mls/hr Tobramycin 350 mg/ Sodium (Chloride) 100 mls @ 100 mls/hr IV ONETIME STA Stop: 01/20/19 01:36 Last Admin: 01/20/19 02:27 Dose: Not Given Vancomycin HCl 885 mg/ Sodium (Chloride) 250 mls @ 166.667 mls/hr IV ONETIME STA Stop: 01/20/19 03:07 Last Admin: 01/20/19 03:13 Dose: 166.667 mls/hr Sodium Chloride (Normal Saline) 1,000 mls @ 100 mls/hr IV ASDIRECTED [facility] Last Admin: 01/20/19 01:47 Dose: 100 mls/hr Sodium Chloride (Normal Saline) 100 mls @ 80 mls/hr IV ASDIRECTED [facility] Last Admin: 01/20/19 02:20 Dose: 80 mls/hr Gentamicin Sulfate 400 mg/ (Sodium Chloride) 110 mls @ 200 mls/hr IV ONETIME STA Stop: 01/20/19 02:56 Last Admin: 01/20/19 02:39 Dose: 200 mls/hr Sodium Chloride (Normal Saline) 1,000 mls @ 999 mls/hr IV ONETIME ONE Stop: 01/20/19 03:35 Last Admin: 01/20/19 08:21 Dose: 999 mls/hr Sodium Chloride (Normal Saline) 1,000 mls @ 999 mls/hr IV BOLUS ONE Stop: 01/20/19 07:48 Last Admin: 01/20/19 08:42 Dose: 999 mls/hr Piperacillin Sod/Tazobactam (Sod 4.5 gm/ Sodium Chloride) 100 mls @ 25 mls/hr IV Q8H [facility] Dextrose/Water (Dextrose 5% In Water) 1,000 mls @ 150 mls/hr IV ASDIRECTED [facility] Linezolid 600 mg/ Premix 300 mls @ 300 mls/hr IV Q12H [facility] Vancomycin HCl 1 gm/ Sodium (Chloride) 250 mls @ 250 mls/hr IV Q18H [facility] Iopamidol (Isovue-370 (76%)) 100 ml IVPUSH ONETIME ONE Stop: 01/20/19 01:46 Last Admin: 01/20/19 02:20 Dose: 100 ml Lisinopril (Prinivil) 10 mg PO DAILY [facility] Lisinopril (Prinivil) 10 mg PO ONETIME ONE Stop: 01/20/19 12:01 Metoprolol Succinate (Toprol Xl) 50 mg PO DAILY [facility] Metoprolol Succinate (Toprol Xl) 50 mg PO ONETIME ONE Stop: 01/20/19 12:01 Multivitamins (Thera) 1 each PO DAILY [facility] Multivitamins (Thera) 1 each PO ONETIME ONE Stop: 01/20/19 12:16 Ondansetron HCl (Zofran) 4 mg IV Q6H PRN PRN Reason: Nausea/Vomiting Risperidone (Risperidal) 0.25 mg PO ONETIME ONE Stop: 01/20/19 12:16 Senna (Senna) 8.6 mg PO DAILY [facility] Senna (Senna) 8.6 mg PO ONETIME ONE Stop: 01/20/19 12:16 Sodium Chloride (Saline Flush) 10 ml FLUSH ONETIME PRN PRN Reason: KEEP VEIN OPEN Last Admin: 01/20/19 02:20 Dose: 10 ml Tamsulosin HCl (Flomax) 0.4 mg PO DAILY [facility] Tamsulosin HCl (Flomax) 0.4 mg PO ONETIME ONE Stop: 01/20/19 12:16 Vancomycin HCl (Pharmacy To Dose - Vancomycin) 1 dose .XX ASDIRECTED PRN PRN Reason: RX TO DOSE VANCO Vancomycin HCl (Pharmacy To Dose - Vancomycin) 1 dose .XX ASDIRECTED PRN PRN Reason: RX TO DOSE VANCO - Exam Quality Assessment: Reports: Supplemental Oxygen General: Reports: No Acute Distress, Obtunded. Denies: Alert, Oriented HEENT: Reports: Pupils Equal Neck: Reports: Supple Lungs: Reports: Normal Respiratory Effort, Decreased Breath Sounds Cardiovascular: Reports: Irregular Rhythm, Tachycardia GI/Abdominal Exam: Normal Bowel Sounds, Soft, Non-Tender, No Distention (Male) Exam: Deferred Rectal (Males) Exam: Deferred Extremities: Normal Inspection, Normal Range of Motion, Non-Tender, No Pedal Edema, Normal Capillary Refill Skin: Reports: Warm, Dry, Intact Psy/Mental Status: Denies: Alert
[2019-01-20] MEDS: risperiDONE 0.5 MG Tab PO ONE ×2 (13:47→20:33)
[2019-01-20] MEDS: Citalopram 10 MG Tab PO ONE ×2 (13:47→16:27)
== END 2019-01-20 16:45 | DRG 178 ==
LOC: JD.ED 00:02 → JD.MS 04:04
PROVIDERS: ADMIT Family Medicine; ATTEND Family Medicine
DX: J69.0 Pneumonitis due to inhalation of food and vomit (principal); E87.0 Hyperosmolality and hypernatremia; E86.9 Volume depletion, unspecified; E87.2 Acidosis; H35.30 Unspecified macular degeneration; E78.00 Pure hypercholesterolemia, unspecified; E86.1 Hypovolemia; Z51.5 Encounter for palliative care; Z66 Do not resuscitate; I48.91 Unspecified atrial fibrillation; K59.09 Other constipation; F03.90 Unspecified dementia, unspecified severity, without behavioral disturbance, psychotic disturbance, mood disturbance, and anxiety; E78.5 Hyperlipidemia, unspecified; F41.1 Generalized anxiety disorder; I10 Essential (primary) hypertension; Z79.82 Long term (current) use of aspirin; D72.828 Other elevated white blood cell count; F20.9 Schizophrenia, unspecified; R45.1 Restlessness and agitation; K21.9 Gastro-esophageal reflux disease without esophagitis; K44.9 Diaphragmatic hernia without obstruction or gangrene; N40.0 Benign prostatic hyperplasia without lower urinary tract symptoms; F41.9 Anxiety disorder, unspecified; F32.9 Major depressive disorder, single episode, unspecified; E86.0 Dehydration; R74.8 Abnormal levels of other serum enzymes; Z86.73 Personal history of transient ischemic attack (TIA), and cerebral infarction without residual deficits; Z79.899 Other long term (current) drug therapy; Z99.81 Dependence on supplemental oxygen
CPT/HCPCS: 36415; 36600; 71045; 71275; 80053; 81001; 82803; 83605; 83735; 83880; 84484; 85007; 85027; 85379; 86738; 87040 ×2; 87804 ×2; 93005; J1580; J2543; J3370; J7030 ×4; J7050; Q9967; 71046; 71046-26; 85610; 86140; 87641; 93010; 94640; 94761; 96361; 96365; 96367; 99235; 99283; 99285-25; A9270-GY; J7620-GY